=== PATIENT | male | born 1970 | race Caucasian/White ===

== ENCOUNTER 2021-05-15 14:13 | Outpatient (REF) | payer OTHER, SELFPAY ==
[2021-05-15 15:16] LABS: Influenza A PCR POSITIVE (Negative); Influenza B PCR NEGATIVE (Negative); Resp Syncy Virus RNA Qual PCR NEGATIVE (Negative); SARS COV2 PCR INHOUSE NEGATIVE (Negative)
== END 2021-05-15 14:14 | disposition home or self-care (01) ==
LOC: HO.LNP 14:13
PROVIDERS: Visit Provider Family Medicine
DX: Z20.822 Contact with and (suspected) exposure to COVID-19 (principal); B34.9 Viral infection, unspecified
CPT/HCPCS: 0241U

== ENCOUNTER 2021-10-29 09:39 | Outpatient (REF) | payer OTHER, SELFPAY ==
[2021-10-29 12:02] LABS: Alanine Aminotransferase 59 U/L (0-40); Albumin Level 4.5 g/dL (3.5-5.0); Alkaline Phosphatase 52 U/L (39-117); Anion Gap 14 (12-20); Aspartate Amino Transferase 33 U/L (5-37); Bilirubin Total 0.7 mg/dL (0.0-1.0); Blood Urea Nitrogen 20 mg/dL (9-16); Calcium 9.9 mg/dL (8.4-10.2); Carbon Dioxide 26 mmol/L (22-29); Chloride 102 mmol/L (96-108); Cholesterol 183 mg/dL; Estimated Glomerular Filt Rate 55; Glucose Fasting 209 mg/dL (60-99); HDL Cholesterol 24 mg/dL; Potassium 4.5 mmol/L (3.3-5.1); Sodium 137 mmol/L (135-145); Total Protein 7.2 g/dL (6.5-8.0); Triglycerides 789 mg/dL
[2021-10-29 12:16] LABS: Prostate Specific Antigen Scr 0.54 ng/mL (<0.05-4.0); TSH reflex Free T4 2.18 uIU/mL (0.32-4.0)
[2021-10-29 12:21] LABS: Creatinine Urine 224.45 mg/dL; Estimated Average Glucose 194 mg/dL; Hemoglobin A1c % 8.4 %; Microalbum/Creatinine Ratio Ur 4.4 ug/mg cr
== END 2021-10-29 09:40 | disposition home or self-care (01) ==
LOC: HO.WFDLDS 09:39
PROVIDERS: Visit Provider Family Medicine
DX: Z00.00 Encounter for general adult medical examination without abnormal findings (principal); Z12.5 Encounter for screening for malignant neoplasm of prostate; R73.01 Impaired fasting glucose; I10 Essential (primary) hypertension
CPT/HCPCS: 36415; 80053; 80061; 82043; 83036; 84153; 84443

== ENCOUNTER 2022-02-03 08:03 | Outpatient (REF) | payer OTHER, SELFPAY ==
[2022-02-03 11:48] LABS: Alanine Aminotransferase 41 U/L (0-40); Albumin Level 4.5 g/dL (3.5-5.0); Alkaline Phosphatase 45 U/L (39-117); Anion Gap 15 (12-20); Aspartate Amino Transferase 21 U/L (5-37); Bilirubin Total 0.5 mg/dL (0.0-1.0); Blood Urea Nitrogen 17 mg/dL (9-16); Calcium 9.5 mg/dL (8.4-10.2); Carbon Dioxide 24 mmol/L (22-29); Chloride 105 mmol/L (96-108); Cholesterol 151 mg/dL; Estimated Glomerular Filt Rate 51; Glucose Fasting 193 mg/dL (60-99); HDL Cholesterol 28 mg/dL; LDL Cholesterol Calculated 50 mg/dl; Potassium 4.1 mmol/L (3.3-5.1); Sodium 140 mmol/L (135-145); Total Protein 6.9 g/dL (6.5-8.0); Triglycerides 368 mg/dL
[2022-02-03 11:57] LABS: Estimated Average Glucose 154 mg/dL
[2022-02-04 09:16] LABS: LDL Cholesterol Direct 68 mg/dL (<100)
== END 2022-02-03 08:04 | disposition home or self-care (01) ==
LOC: HO.WFDLDS 08:03
PROVIDERS: Visit Provider Family Medicine
DX: Z00.00 Encounter for general adult medical examination without abnormal findings (principal); R73.01 Impaired fasting glucose; E78.6 Lipoprotein deficiency; E78.1 Pure hyperglyceridemia
CPT/HCPCS: 36415; 80053; 80061; 83036; 83721

== ENCOUNTER 2022-02-07 07:49 | Outpatient (REF) | payer OTHER, SELFPAY ==
--- NOTE | ~2022-02-07 | XR_ITS ---
EXAMINATION: XR SHOULDER, RIGHT CLINICAL INFORMATION: Essential hypertension COMPARISON: None TECHNIQUE: AP external rotation, Grashey, scapular Y, and axillary views of the right shoulder. FINDINGS: No acute fracture or dislocation. Mild glenohumeral joint space narrowing with subchondral sclerosis and marginal osteophyte formation. Acromiohumeral interval is maintained. No periarticular soft tissue calcification. AC joint is congruent and intact with minimal subchondral sclerosis and subchondral cystic change. Visualized right lung is grossly clear. XR/XR shoulder RT min 2V IMPRESSION: 1. No acute osseous injury. 2. Mild glenohumeral joint osteoarthritis and minimal acromioclavicular arthropathy.
== END 2022-02-07 07:50 | disposition home or self-care (01) ==
LOC: HO.XRAY 07:49
PROVIDERS: PCP Family Medicine; Visit Provider Family Medicine
DX: I10 Essential (primary) hypertension (principal); M19.011 Primary osteoarthritis, right shoulder
CPT/HCPCS: 73030

== ENCOUNTER 2022-03-21 07:58 | Outpatient (REF) | payer OTHER, SELFPAY ==
[2022-03-21 11:48] LABS: Alanine Aminotransferase 56 U/L (0-40); Albumin Level 4.3 g/dL (3.5-5.0); Alkaline Phosphatase 41 U/L (39-117); Anion Gap 14 (12-20); Aspartate Amino Transferase 21 U/L (5-37); Bilirubin Total 0.4 mg/dL (0.0-1.0); Blood Urea Nitrogen 16 mg/dL (9-16); Calcium 9.5 mg/dL (8.4-10.2); Carbon Dioxide 26 mmol/L (22-29); Chloride 103 mmol/L (96-108); Estimated Glomerular Filt Rate 59; Glucose Random 169 mg/dL (60-115); Sodium 139 mmol/L (135-145); Total Protein 6.7 g/dL (6.5-8.0); Uric Acid 5.5 mg/dL (3.4-7.0)
== END 2022-03-21 07:59 | disposition home or self-care (01) ==
LOC: HO.WFDLDS 07:58
PROVIDERS: Visit Provider Family Medicine
DX: R79.89 Other specified abnormal findings of blood chemistry (principal)
CPT/HCPCS: 36415; 80053; 84550

== ENCOUNTER 2022-06-12 09:17 | Outpatient (REF) | payer OTHER, SELFPAY ==
[2022-06-12 12:24] LABS: Alanine Aminotransferase 56 U/L (0-40); Albumin Level 4.4 g/dL (3.5-5.0); Alkaline Phosphatase 46 U/L (39-117); Anion Gap 14 (12-20); Aspartate Amino Transferase 30 U/L (5-37); Bilirubin Total 0.7 mg/dL (0.0-1.0); Blood Urea Nitrogen 20 mg/dL (9-16); Carbon Dioxide 23 mmol/L (22-29); Chloride 103 mmol/L (96-108); Cholesterol 154 mg/dL; Estimated Glomerular Filt Rate 52; Glucose Random 235 mg/dL (60-115); HDL Cholesterol 20 mg/dL; Potassium 3.9 mmol/L (3.3-5.1); Sodium 136 mmol/L (135-145); Total Protein 6.9 g/dL (6.5-8.0); Triglycerides 662 mg/dL
== END 2022-06-12 09:18 | disposition home or self-care (01) ==
LOC: HO.WFDLDS 09:17
PROVIDERS: Visit Provider Family Medicine
DX: Z00.00 Encounter for general adult medical examination without abnormal findings (principal); E78.6 Lipoprotein deficiency; R74.8 Abnormal levels of other serum enzymes
CPT/HCPCS: 36415; 80053; 80061

== ENCOUNTER 2022-06-19 09:04 | Outpatient (REF) | payer OTHER, SELFPAY ==
--- NOTE | ~2022-06-19 | US_ITS ---
EXAMINATION: US ABDOMEN LIMITED WITH LIVER ELASTOGRAPHY CLINICAL INFORMATION: Abnormal LFTs. COMPARISON: None. TECHNIQUE: Real-time imaging of the abdominal viscera. Noninvasive ultrasound liver fibrosis assessment is performed using Josef ElastPQ point quantification shear wave elastography (2D-SWE) with a C5-2 MHz transducer. Multiple elastography samples are obtained. FINDINGS: PANCREAS: Normal. The visualized pancreatic head and body are normal in appearance. The remainder of the pancreas is obscured from visualization by the overlying bowel gas. LIVER: The liver demonstrates normal size, contour and increased echogenicity. No focal lesion or intrahepatic biliary duct dilatation. The right lobe measures 22.1 cm in length. The left lobe measures 15.5 cm in length. Portal flow is hepatopedal. Shear wave liver elastography median stiffness is 1.79 m/s (reference: normal median stiffness is 1.3 m/s or less). IQR/median stiffness to assess sampling precision is 0.07 (reference: good quality data set is IQR/median stiffness of 0.15 or less). GALLBLADDER: Normal. The gallbladder is physiologically distended without evidence of stones, sludge, polyps, wall thickening or pericholecystic fluid. COMMON BILE DUCT: Normal in caliber measuring 0.34 cm in diameter. RIGHT KIDNEY: Normal. No hydronephrosis. No renal calculi or focal parenchymal lesions. The kidney measures 11.8 cm in maximum dimension. FREE FLUID: None. US/US abdomen marr w elastography IMPRESSION: 1. Mild hepatic steatosis without focal lesion. Rest of the limited abdominal ultrasound is unremarkable. 2. Liver elastography: Median liver stiffness measures 1.79 m/s corresponding to cACLD (suggestive). REFERENCE: Society of Radiologists in Ultrasound Liver Stiffness Thresholds (2020): LIVER STIFFNESS THRESHOLDS: *Liver Stiffness equal or less than 1.3 m/s: High probability of being normal. *Liver Stiffness less than 1.7 m/s: In the absence of other known clinical signs, rules out compensated advanced chronic liver disease. *Liver Stiffness 1.7-2.1 m/s: Suggestive of compensated advanced chronic liver disease but need further test for confirmation. *Liver Stiffness over 2.1 m/s: Rules in compensated advanced chronic liver disease. *Liver Stiffness over 2.4 m/s: Suggestive of clinically significant portal hypertension. QUALITY OF DATA SET: *IQR/Median value equal or less than 0.15 implies a quality data set. *IQR/Median value over 0.15 implies a poor quality data set. SIGNIFICANT CHANGE FROM PRIOR EXAM: Significant change if liver stiffness measurement is 10% or greater from prior exam. OTHER CONSIDERATIONS: The stage of liver fibrosis may be overestimated in the setting of acute hepatitis, liver inflammation, elevated liver function tests, hepatic vascular congestion, obstructive cholestasis, non-fasting state, and infiltrative diseases such as amyloidosis and lymphoma. In some patients with NAFLD, the liver stiffness thresholds for compensated advanced chronic liver disease may be lower. In causes other than viral hepatitis and NAFLD, liver stiffness thresholds are not well established.
== END 2022-06-19 09:05 | disposition home or self-care (01) ==
LOC: HO.US 09:04
PROVIDERS: Visit Provider Family Medicine
DX: R74.8 Abnormal levels of other serum enzymes (principal)
CPT/HCPCS: 76705; 76981

== ENCOUNTER 2022-08-14 09:42 | Outpatient (REF) | payer OTHER, SELFPAY ==
[2022-08-14 11:40] LABS: Estimated Average Glucose 260 mg/dL; Hemoglobin A1c % 10.7 %
[2022-08-14 12:11] LABS: Alanine Aminotransferase 67 U/L (0-40); Albumin Level 4.4 g/dL (3.5-5.0); Alkaline Phosphatase 54 U/L (39-117); Anion Gap 13 (12-20); Aspartate Amino Transferase 46 U/L (5-37); Bilirubin Total 0.4 mg/dL (0.0-1.0); Blood Urea Nitrogen 19 mg/dL (9-16); Calcium 9.7 mg/dL (8.4-10.2); Carbon Dioxide 23 mmol/L (22-29); Chloride 101 mmol/L (96-108); Estimated Glomerular Filt Rate 52; Glucose Random 326 mg/dL (60-115); Lipase 24 U/L (8-78); Potassium 4.2 mmol/L (3.3-5.1); Sodium 133 mmol/L (135-145); Total Protein 7.3 g/dL (6.5-8.0)
== END 2022-08-14 09:43 | disposition home or self-care (01) ==
LOC: HO.WFDLDS 09:42
PROVIDERS: Visit Provider Family Medicine
DX: R79.89 Other specified abnormal findings of blood chemistry (principal); E11.9 Type 2 diabetes mellitus without complications
CPT/HCPCS: 36415; 80053; 83036; 83690

== ENCOUNTER → 2022-08-19 08:17 | Outpatient (BNVA) | payer OTHER, SELFPAY | PROVIDERS: PCP Family Medicine; Visit Provider Physician Assistant | DX: Z13.89 Encounter for screening for other disorder (principal) ==

== ENCOUNTER 2022-08-19 08:55 | Outpatient (REF) | payer OTHER, SELFPAY ==
[2022-08-20 04:43] LABS: HBc Num1 0.08 S/CO (0.00-0.79); HBsAGNum1 0.43 S/CO (0.00-0.99); Hepatitis A Antibody IgM 0.15 Index (0-0.79); Hepatitis B Core Antibody Nonreactive (Nonreactive); Hepatitis B Surface Antigen Negative (Negative); ~HepC Num1 0.08 S/CO (0.00-0.79); ~Hepatitis A Antibody IgM Nonreactive (Nonreactive); ~Hepatitis C Antibody Nonreactive (Nonreactive)
[2022-08-20 05:24] LABS: HBS Num2 11.02 mIU/mL (0-7.99); HBS Num3 10.95 mIU/mL (0-7.99); ~Hepatitis B Surface Antibody GRAYZONE (Nonreactive)
[2022-08-21 14:59] LABS: Alpha 1 Anti-trypsin 114 mg/dL (83-199)
[2022-08-22 15:34] LABS: Anti Nuclear Antibody Screen NEGATIVE (NEGATIVE)
[2022-08-23 23:29] LABS: Smooth Muscle Antibody <20 U (<20)
[2022-08-25 12:04] LABS: Mitochondrial Antibodies NEGATIVE (NEGATIVE)
[2022-08-26 23:18] LABS: Soluble Liver Ag Autoantibody <20.1 U (0.0-20.0)
== END 2022-08-19 08:56 | disposition home or self-care (01) ==
LOC: HO.WFDLDS 08:55
PROVIDERS: Visit Provider Physician Assistant
DX: R74.01 Elevation of levels of liver transaminase levels (principal); R79.89 Other specified abnormal findings of blood chemistry; R74.8 Abnormal levels of other serum enzymes
CPT/HCPCS: 36415; 81256; 82103; 83520; 86015; 86038; 86039; 86255; 86256; 86704; 86706; 86709; 86803; 87340

== ENCOUNTER 2022-09-29 07:59 | Outpatient (REF) | payer OTHER, SELFPAY ==
[2022-09-29 11:40] LABS: Alanine Aminotransferase 52 U/L (0-40); Albumin Level 4.4 g/dL (3.5-5.0); Alkaline Phosphatase 47 U/L (39-117); Anion Gap 14 (12-20); Aspartate Amino Transferase 30 U/L (5-37); Bilirubin Total 0.7 mg/dL (0.0-1.0); Blood Urea Nitrogen 16 mg/dL (9-16); Calcium 9.7 mg/dL (8.4-10.2); Carbon Dioxide 24 mmol/L (22-29); Chloride 103 mmol/L (96-108); Cholesterol 179 mg/dL; Estimated Glomerular Filt Rate 48; Glucose Random 254 mg/dL (60-115); HDL Cholesterol 20 mg/dL; Potassium 4.3 mmol/L (3.3-5.1); Sodium 137 mmol/L (135-145); Total Protein 6.8 g/dL (6.5-8.0); Triglycerides 864 mg/dL
== END 2022-09-29 08:00 | disposition home or self-care (01) ==
LOC: HO.WFDLDS 07:59
PROVIDERS: Visit Provider Family Medicine
DX: Z00.00 Encounter for general adult medical examination without abnormal findings (principal); E78.1 Pure hyperglyceridemia; I10 Essential (primary) hypertension; E11.9 Type 2 diabetes mellitus without complications; R79.89 Other specified abnormal findings of blood chemistry
CPT/HCPCS: 36415; 80053; 80061

== ENCOUNTER 2022-11-10 09:19 | Outpatient (REF) | payer OTHER, SELFPAY ==
[2022-11-10 11:59] LABS: Alanine Aminotransferase 53 U/L (0-40); Albumin Level 4.5 g/dL (3.5-5.0); Alkaline Phosphatase 41 U/L (39-117); Anion Gap 13 (12-20); Aspartate Amino Transferase 30 U/L (5-37); Bilirubin Total 0.6 mg/dL (0.0-1.0); Blood Urea Nitrogen 15 mg/dL (9-16); Calcium 9.8 mg/dL (8.4-10.2); Carbon Dioxide 22 mmol/L (22-29); Chloride 108 mmol/L (96-108); Cholesterol 130 mg/dL; Estimated Glomerular Filt Rate > 60; Glucose Fasting 159 mg/dL (60-99); HDL Cholesterol 26 mg/dL; LDL Cholesterol Calculated 40 mg/dl; Sodium 139 mmol/L (135-145); Total Protein 7.2 g/dL (6.5-8.0); Triglycerides 324 mg/dL
== END 2022-11-10 09:20 | disposition home or self-care (01) ==
LOC: HO.WFDLDS 09:19
PROVIDERS: Visit Provider Family Medicine
DX: Z00.00 Encounter for general adult medical examination without abnormal findings (principal); E78.1 Pure hyperglyceridemia; E11.9 Type 2 diabetes mellitus without complications
CPT/HCPCS: 36415; 80053; 80061

== ENCOUNTER 2023-02-13 07:50 | Outpatient (REF) | payer OTHER, SELFPAY ==
[2023-02-13 11:46] LABS: Estimated Average Glucose 137 mg/dL; Hemoglobin A1c % 6.4 % (<6.0)
[2023-02-13 12:08] LABS: Alanine Aminotransferase 54 U/L (0-40); Albumin Level 4.5 g/dL (3.5-5.0); Alkaline Phosphatase 37 U/L (39-117); Anion Gap 12 (12-20); Aspartate Amino Transferase 32 U/L (5-37); Bilirubin Total 0.3 mg/dL (0.0-1.0); Blood Urea Nitrogen 17 mg/dL (9-16); Calcium 10.6 mg/dL (8.4-10.2); Carbon Dioxide 23 mmol/L (22-29); Chloride 107 mmol/L (96-108); Cholesterol 134 mg/dL (<200); Estimated Glomerular Filt Rate > 60; Glucose Fasting 159 mg/dL (60-99); HDL Cholesterol 25 mg/dL (>40); LDL Cholesterol Calculated 33 mg/dL (<100); Sodium 138 mmol/L (135-145); Triglycerides 380 mg/dL (<150)
[2023-02-13 12:32] LABS: TSH reflex Free T4 2.13 uIU/mL (0.32-4.0)
== END 2023-02-13 07:51 | disposition home or self-care (01) ==
LOC: HO.WFDLDS 07:50
PROVIDERS: Visit Provider Family Medicine
DX: Z00.00 Encounter for general adult medical examination without abnormal findings (principal); R73.01 Impaired fasting glucose
CPT/HCPCS: 36415; 80053; 80061; 83036; 84443

== ENCOUNTER 2023-02-17 08:32 | Outpatient (AMB) | payer OTHER, SELFPAY ==
--- NOTE | 2023-02-17 08:33 | MHC.PC.OV ---
Vital Signs 02/17/23 08:40 Height 6 ft 3 in Weight 251 lb 2 oz BMI 31.4 BP 118/62 Blood Pressure Location Rt brachial Position Sitting Respiration 16 Pulse 80 Pulse Source Pulse Oximeter Temp 98.9 F Temp Source Oral Pulse Oximetry (%) 98 Oxygen Delivery Method Room Air Intake Visit Reasons: f/u diabetes Intake Note: Patient is following up regarding labs drawn 02/13/23 with an A1C result of 6.4. Patient reports he has a concern for his right ear feeling blocked without pain. 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 Had increased his Trulicity. Blood pressure today is 118/62. He is on amlodipine 10mg and losartan 50mg daily. A1c 02/13/23 6.4%. He denies any problems with Trulicity. He is also on metformin 500mg b.i.d. Pt reports R ear feels blocked. Labs were drawn 02/13/23. Reviewed labs with pt. Triglycerides worsened from 324 to 380. TC 134. LDL 33. HDL low at 25. [facility] Medical History Hx of gout Surgical History History of plastic surgery History of repair of left hip joint History of right elbow replacement History of tonsillectomy Family History Other Mental health disorder Substance use disorder Social History Housing: House Alcohol intake: current Alcohol intake frequency: a few times a month Patient Tobacco Use Status: Never used Tobacco e-Cigarette/Vaping Use: Never Used Second Hand Smoke Exposure: No service: No Current occupational status: employed Current occupational exposures/hazards: No Cognitive needs: No Hearing needs: No Vision needs: No (reading glasses) Questionnaire Thrive Questionnaire Date Thrive assessed: 11/13/22 BROCK-7 AMB Questionnaire BROCK-7 Date BROCK - 7 assessed: 11/13/22 Source: Developed by Drs. Clarke Bella, Lily Hale, Rogelio Dunne and colleagues, with an educational chavez from [employer]. Physical exam (Primary Care) Vital Signs: Last Vital Signs Temp 98.9 F 02/17/23 08:40 Pulse 80 02/17/23 08:40 Resp 16 02/17/23 08:40 BP 118/62 02/17/23 08:40 Pulse Ox 98 02/17/23 08:40 Oxygen Delivery Method Room Air 02/17/23 08:40 BMI result Body Mass Index 31.4 Tobacco/Smoking Status: Tobacco use Status Tobacco use date assessed 02/17/23 02/17/23 08:43 Patient Tobacco Use Status Never used Tobacco 02/17/23 08:34 e-Cigarette/Vaping Use Never Used 02/17/23 08:34 Thrive Assessment: Date of Thrive Assessment Date Thrive assessed 11/13/22 02/17/23 08:34 Assessment and Plan Assessment & Plan (1) Diabetes: Code(s): E11.9 - Type 2 diabetes mellitus without complications Plan: A1c now 6.4%; good control. Goal is less than 7.0% Continue current medication regimen (2) Essential hypertension: Code(s): I10 - Essential (primary) hypertension Plan: Blood pressure is well controlled. Goal is less than 140/90 Continue amlodipine and losartan as prescribed (3) Hypertriglyceridemia: Code(s): E78.1 - Pure hyperglyceridemia Plan: Triglycerides are still high despite high dose of fenofibrate - however much improved from prior to using fenofibrate therapy when triglycerides were Greater than 800 Continue fenofibrate Work on diet low in saturated fats and cholesterol, control blood sugar and increase exercise (4) Low HDL (under 40): Code(s): E78.6 - Lipoprotein deficiency Plan: Increase exercise Will follow (5) Discomfort of right ear: Code(s): H92.01 - Otalgia, right ear Plan: Right TM appears scarred and thickened. Refer to ENT (6) Hearing loss in right ear: Code(s): H91.91 - Unspecified hearing loss, right ear Plan: As above (7) Injury of tympanic membrane of right ear: Code(s): S09.301A - Unspecified injury of right middle and inner ear, initial encounter Plan: Apparent scarring and thickening of right TM. Referred to ENT as above Orders: Referrals Ear/Nose/Throat Referral H91.91 - Unspecified hearing loss, right ear, S09.301A - Unspecified injury of right middle and inner ear, initial encounter Coding Level of Care Code Est Pt Level 4 (02622) Diagnoses Diabetes E11.9 Essential hypertension I10 Hypertriglyceridemia E78.1 Low HDL (under 40) E78.6 Discomfort of right ear H92.01 Hearing loss in right ear H91.91 Injury of tympanic membrane of right ear S09.301A
[2023-02-17 08:40] VITALS: BP 118/62; PULSE 80; RESP 16; TEMP 37.2; O2SAT 98; BMI 31.4
== END 2023-02-17 09:10 | disposition home or self-care (01) ==
PROVIDERS: PCP Family Medicine; Visit Provider Family Medicine
DX: E11.9 Type 2 diabetes mellitus without complications (principal); I10 Essential (primary) hypertension; E78.1 Pure hyperglyceridemia; E78.6 Lipoprotein deficiency; H92.01 Otalgia, right ear; H91.91 Unspecified hearing loss, right ear; S09.301A Unspecified injury of right middle and inner ear, initial encounter
CPT/HCPCS: 99214

== ENCOUNTER 2023-05-15 08:35 | Outpatient (REF) | payer OTHER, SELFPAY ==
[2023-05-15 11:57] LABS: Alanine Aminotransferase 45 U/L (0-40); Albumin Level 4.3 g/dL (3.5-5.0); Alkaline Phosphatase 50 U/L (39-117); Anion Gap 12 (12-20); Aspartate Amino Transferase 26 U/L (5-37); Bilirubin Total 0.3 mg/dL (0.0-1.0); Blood Urea Nitrogen 15 mg/dL (9-16); Calcium 10.1 mg/dL (8.4-10.2); Carbon Dioxide 27 mmol/L (22-29); Chloride 104 mmol/L (96-108); Cholesterol 129 mg/dL (<200); Estimated Glomerular Filt Rate 55; Glucose Fasting 193 mg/dL (60-99); HDL Cholesterol 21 mg/dL (>40); Potassium 4.3 mmol/L (3.3-5.1); Sodium 139 mmol/L (135-145); Triglycerides 459 mg/dL (<150)
[2023-05-15 12:20] LABS: Appearance Urine Clear; Color Urine Yellow; Glucose Urine UA 100 mg/dL (Negative); Leukocyte Esterase Urine Negative (Negative); Nitrite Urine Negative (Negative); Specific Gravity - Urine 1.015 (1.005-1.025); Urine Blood Negative (Negative); Urine Ketones Negative (Negative); Urine Protein Negative (Neg-Trace)
[2023-05-15 14:08] LABS: Creatinine Urine 118.49 mg/dL
== END 2023-05-15 08:36 | disposition home or self-care (01) ==
LOC: HO.WFDLDS 08:35
PROVIDERS: Visit Provider Family Medicine
DX: Z00.00 Encounter for general adult medical examination without abnormal findings (principal); I10 Essential (primary) hypertension; E78.6 Lipoprotein deficiency; R74.8 Abnormal levels of other serum enzymes
CPT/HCPCS: 36415; 80053; 80061; 81003; 82043; 82570

== ENCOUNTER 2023-05-21 08:22 | Outpatient (AMB) | payer OTHER, SELFPAY ==
--- NOTE | 2023-05-21 08:26 | MHC.PC.OV ---
Vital Signs 05/21/23 08:27 Height 6 ft 3 in Weight 254 lb 4 oz BMI 31.8 BP 124/72 Blood Pressure Location Rt brachial Position Sitting Respiration 13 Pulse 94 Pulse Source Pulse Oximeter Temp 97.6 F Temp Source Temporal Artery Scan Pulse Oximetry (%) 97 Oxygen Delivery Method Room Air Intake Visit Reasons: f/u diabetes Intake Note: Patient states that he has been having a persistent cough for the last 6 weeks and believes it may be a side effect from a medication. 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: No Accompanied by: Self / Same As Patient Allergies clarithromycin [From BIAXIN] Allergy (Severe, Verified 05/21/23 08:34) ANAPHYLAXIS ENVIRONMENTAL Allergy (Intermediate, Uncoded 10/01/22 08:54) ITCHY EYES RUNNY NOSE Tobacco use date assessed: 02/17/23 Dental Screening Dental Screen Date: 05/21/23 Did you have a dental visit in the last 12 months?: Yes Did you have a dental problem in the last 6 months where you did not have access to dental care?: No Was dental information given to patient?: Patient has dentist HPI f/u diabetes HPI Details 53 y/o male presents to f/u diabetes and hypertension. Labs were drawn 05/15/23. Reviewed labs with pt. Elevated ALT of 45 U/L which improved from 54. Triglycerides worsened from 380 to 459. HDL low at 21. Last A1c 02/13/23 6.4%. A1c today 05/21/23 is 7.4%. Blood pressure today 124/72. He is on amlodipine 10mg and losartan 50mg daily. Pt reports a cough x6 weeks. He has been trying to drink a lot of cough medicine for relief. 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 Clarke Bella, Lily Hale, Rogelio Dunne and colleagues, with an educational chavez from [employer]. Review of Systems Const Denies chills, Denies fatigue, Denies fever(s), Denies headache(s) and Denies weakness ENT Denies dizziness and Denies headache(s) Card Denies chest pain, Denies lightheadedness, Denies dyspnea and Denies other (Palpitations) Resp Reports cough, Denies dyspnea and Denies wheezing Musc Denies numbness and Denies tingling Neuro Denies dizziness, Denies headache(s), Denies numbness, Denies tingling, Denies paresthesias and Denies weakness Psych Denies anxiety and Denies depression Endo Denies fatigue Aller/Immun Denies wheezing Physical exam (Primary Care) Vital Signs: Last Vital Signs Temp 97.6 F 05/21/23 08:27 Pulse 94 05/21/23 08:27 Resp 13 05/21/23 08:27 BP 124/72 05/21/23 08:27 Pulse Ox 97 05/21/23 08:27 Oxygen Delivery Method Room Air 05/21/23 08:27 BMI result Body Mass Index 31.8 Tobacco/Smoking Status: Tobacco use Status Tobacco use date assessed 02/17/23 05/21/23 08:33 Patient Tobacco Use Status Never used Tobacco 05/21/23 08:33 e-Cigarette/Vaping Use Never Used 05/21/23 08:33 Thrive Assessment: Date of Thrive Assessment Date Thrive assessed 11/13/22 05/21/23 08:33 Const General: no acute distress and well developed Nutritional Appearance: well nourished Orientation/consciousness: patient oriented x3 HENMT Head: Yes normocephalic and Yes atraumatic Eyes General: appearance normal, both eyes and all related structures Pupils: Equal, round and reactive pupils present EOM: EOMs intact bilaterally Resp Effort & Inspection: normal respiratory effort Auscultation: not clear to auscultation bilaterally Cardio Rate: regular rate Rhythm: regular rhythm Heart sounds: S1 normal heart sound present, S2 normal heart sound present, no gallops, no murmurs and no rubs Neuro General: patient oriented x3 and gait normal Cranial nerves: Yes Equal, round and reactive pupils present Psych Affect: normal affect Results AMB Hemoglobin A1c AMB Hemoglobin A1c 7.4 % Last Edit by Luz Child MA on 05/21/23 08:41 Results Reviewed Results Reviewed: Laboratory Last Values Hgb A1c (Clinic) 7.4 % (4.0-6.0) H 05/21/23 08:39 Assessment and Plan Assessment & Plan (1) Diabetes: Code(s): E11.9 - Type 2 diabetes mellitus without complications Plan: A1c?7.4%?and?goal?is?less?than?7.0%. Will?increase?Trulicity (2) Essential hypertension: Code(s): I10 - Essential (primary) hypertension Plan: Blood?pressure?is?controlled.??Goal?is?less?than?140/90 Continue?current?medication (3) Cough: Code(s): R05 - Cough Plan: Likely?bronchitis Check?chest?x-ray?to?rule?out?occult?pneumonia Will?give?him?prednisone?and?cephalexin;?patient?allergic?to?clarithromycin?and?likely?Z-James He?will?call?or?return?to?office?if?not?improving (4) Hypertriglyceridemia: Code(s): E78.1 - Pure hyperglyceridemia Plan: He?is?on?high?dose?of?fenofibrate. Triglycerides?had?been?greater?than?800?prior?to?medication.??Triglycerides?have?risen to 459 as?he?has?been?not?feeling?well?and?not?exercising?as?much. Encouraged?weight?loss?and?exercise?when?he?is?feeling?better Continue?medication (5) Elevated liver enzymes: Code(s): R74.8 - Abnormal levels of other serum enzymes Plan: Liver?enzymes?have?improved.??Will?continue?to?follow Orders: Orders XR chest 2V Today R05 - Cough Comprehensive [place]. Panel Fast Today R74.8 - Abnormal levels of other serum enzymes, Z00.00 - Encounter for general adult medical examination without abnormal findings Lipid Panel Today E78.1 - Pure hyperglyceridemia, Z00.00 - Encounter for general adult medical examination without abnormal findings LDL Cholesterol Direct Today E78.1 - Pure hyperglyceridemia Medications: New prednisone 4 tabs daily for 4 days, 3 tabs daily for 2 days, 2 tabs daily for 2 days, 1 tab daily for 2 days PO daily; 10 days 28 tabs 0RF cephalexin 500 mg PO Q12H 7 days 14 caps 0RF Changed From dulaglutide 1.5 mg (0.5 mL) subcut QWEEK 28 days 2 mL 3RF To dulaglutide 3 mg (0.5 mL) subcut QWEEK 2 mL 3RF 28 days Coding Level of Care Code Est Pt Level 4 (41332) Diagnoses Diabetes E11.9 Essential hypertension I10 Cough R05 Hypertriglyceridemia E78.1 Elevated liver enzymes R74.8
[2023-05-21 08:27] VITALS: BP 124/72; PULSE 94; RESP 13; TEMP 36.4; O2SAT 97; BMI 31.8
== END 2023-05-21 08:58 | disposition home or self-care (01) ==
PROVIDERS: PCP Family Medicine; Visit Provider Family Medicine
DX: E11.9 Type 2 diabetes mellitus without complications (principal); I10 Essential (primary) hypertension; R05.9 Cough, unspecified; E78.1 Pure hyperglyceridemia; R74.8 Abnormal levels of other serum enzymes
CPT/HCPCS: 99214

== ENCOUNTER 2023-09-02 08:26 | Outpatient (REF) | payer OTHER, SELFPAY ==
[2023-09-02 12:43] LABS: Alanine Aminotransferase 71 U/L (0-40); Albumin Level 4.3 g/dL (3.5-5.0); Alkaline Phosphatase 47 U/L (39-117); Anion Gap 14 (12-20); Aspartate Amino Transferase 38 U/L (5-37); Bilirubin Total 0.3 mg/dL (0.0-1.0); Blood Urea Nitrogen 14 mg/dL (9-16); Calcium 9.6 mg/dL (8.4-10.2); Carbon Dioxide 21 mmol/L (22-29); Chloride 107 mmol/L (96-108); Cholesterol 137 mg/dL (<200); Estimated Glomerular Filt Rate > 60; Glucose Fasting 181 mg/dL (60-99); HDL Cholesterol 22 mg/dL (>40); Potassium 4.1 mmol/L (3.3-5.1); Sodium 138 mmol/L (135-145); Total Protein 7.1 g/dL (6.5-8.0); Triglycerides 481 mg/dL (<150)
[2023-09-03 09:47] LABS: LDL Cholesterol Direct 52 mg/dL (<100)
== END 2023-09-02 08:27 | disposition home or self-care (01) ==
LOC: HO.WFDLDS 08:26
PROVIDERS: Visit Provider Family Medicine
DX: Z00.00 Encounter for general adult medical examination without abnormal findings (principal); R74.8 Abnormal levels of other serum enzymes; E78.1 Pure hyperglyceridemia
CPT/HCPCS: 36415; 80053; 80061; 83721

== ENCOUNTER 2023-10-29 09:46 | Outpatient (AMB) | payer OTHER, SELFPAY ==
[2023-10-29 09:54] VITALS: BP 132/80; PULSE 91; O2SAT 98; BMI 31.2
--- NOTE | 2023-10-29 09:54 | MHC.PC.OV ---
Vital Signs 10/29/23 09:54 Height 6 ft 3 in Weight 250 lb BMI 31.2 BP 132/80 Blood Pressure Location Lt brachial Position Sitting Pulse 91 Pulse Source Pulse Oximeter Pulse Oximetry (%) 98 Oxygen Delivery Method Room Air Intake Visit Reasons: f/u for med recomendation Intake Note: Patient is here for follow up on medications. Allergies clarithromycin [From BIAXIN] Allergy (Severe, Verified 10/29/23 09:57) ANAPHYLAXIS ENVIRONMENTAL Allergy (Intermediate, Uncoded 10/29/23 09:57) ITCHY EYES RUNNY NOSE Medication List - Last Reconciled 10/29/23 by Reno Vargas MD allopurinol 200 mg (2 x 100 mg) PO DAILY 90 days amlodipine 10 mg PO DAILY 30 days blood sugar diagnostic (FreeStyle Lite Strips) DX: E11.9, test blood sugar once a day, 90 days blood-glucose meter (FreeStyle Lite Meter kit) DX: E11.9, test blood sugar once a day, duration 999 days cephalexin 500 mg PO Q12H 7 days dulaglutide 3 mg (0.5 mL) subcut QWEEK 28 days fenofibrate micronized 200 mg PO DAILY 30 days lancets (FreeStyle Lancets) As directed losartan 50 mg PO DAILY 30 days meloxicam 15 mg PO DAILY PRN metformin 500 mg PO BIDWMEAL 90 days prednisone 4 tabs daily for 4 days, 3 tabs daily for 2 days, 2 tabs daily for 2 days, 1 tab daily for 2 days PO daily; 10 days Tobacco use date assessed: 10/29/23 Dental Screening Dental Screen Date: 10/29/23 Did you have a dental visit in the last 12 months?: No Did you have a dental problem in the last 6 months where you did not have access to dental care?: No Was dental information given to patient?: Patient has dentist HPI f/u for med recomendation HPI Details Pt presents to f/u hypertension, HLD, liver enzymes. Pt reports ongoing cough. Labs were drawn 09/02/23. Reviewed labs with pt. Elevated AST of 38, ALT of 71. He denies any EtOH/tylenol use. Triglycerides 481. TC 137. LDL 52. HDL low at 22. 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 Clarke Bella, Lily Hale, Rogelio Dunne and colleagues, with an educational chavez from [employer]. Review of Systems Const Denies chills, Denies fatigue, Denies fever(s), Denies headache(s) and Denies weakness ENT Denies dizziness and Denies headache(s) Card Denies dyspnea Resp Reports cough, Denies dyspnea and Denies wheezing Musc Denies numbness and Denies tingling Neuro Denies dizziness, Denies headache(s), Denies numbness, Denies tingling and Denies weakness Psych Denies anxiety and Denies depression Endo Denies fatigue Aller/Immun Denies wheezing Physical exam (Primary Care) Vital Signs: Last Vital Signs Pulse 91 10/29/23 09:54 BP 132/80 10/29/23 09:54 Pulse Ox 98 10/29/23 09:54 Oxygen Delivery Method Room Air 10/29/23 09:54 BMI result Body Mass Index 31.2 Tobacco/Smoking Status: Tobacco use Status Tobacco use date assessed 10/29/23 10/29/23 10:00 Patient Tobacco Use Status Never used Tobacco 10/29/23 09:55 e-Cigarette/Vaping Use Never Used 10/29/23 09:55 Thrive Assessment: Date of Thrive Assessment Date Thrive assessed 11/13/22 10/29/23 09:55 Const General: well developed; No acute distress Nutritional Appearance: well nourished Orientation/consciousness: patient oriented x3 HENMT Head: Yes normocephalic and Yes atraumatic Eyes General: appearance normal, both eyes and all related structures Pupils: Equal, round and reactive pupils present EOM: EOMs intact bilaterally Resp Other: Upper airway secretion sounds Effort & Inspection: normal respiratory effort Neuro General: patient oriented x3 and gait normal Cranial nerves: Yes Equal, round and reactive pupils present Psych Affect: normal affect Assessment and Plan Assessment & Plan (1) Essential hypertension: Code(s): I10 - Essential (primary) hypertension Plan: Blood?pressure?is?controlled.??Goal?is?less?than?140/90 Continue?current?medication?regimen (2) Hypertriglyceridemia: Code(s): E78.1 - Pure hyperglyceridemia Plan: Triglycerides?significantly?elevated?despite?fenofibrate. Of?note,?patient?has?not?been?able?to?get?his?Trulicity?and?his?blood?sugars?are?much?higher.??This?may?be?elevated?triglycerides?as?well Treating?blood?sugar.??Continue?fenofibrate Will?recheck?prior?to?next?visit?in?3?months (3) Cough: Code(s): R05 - Cough Plan: Possible?bronchitis?or?inflammatory?cough?from?microaspiration Giving?him?a?Z-James?and?short?course?of?prednisone. Will?also?give?him?famotidine Continue?Meeta?D?OTC (4) Elevated liver enzymes: Code(s): R74.8 - Abnormal levels of other serum enzymes Plan: Liver?enzymes?remained?elevated?and?have?climbed. History?of?hepatic?steatosis Encouraged?weight?loss Orders: Orders Comprehensive [place]. Panel Fast Today E78.1 - Pure hyperglyceridemia, Z00.00 - Encounter for general adult medical examination without abnormal findings Lipid Panel Today E78.1 - Pure hyperglyceridemia, Z00.00 - Encounter for general adult medical examination without abnormal findings AMB Hemoglobin A1c Today Z13.9 - Encounter for screening, unspecified Medications: New prednisone 40 mg (2 x 20 mg) PO DAILY 5 days 10 tabs 0RF famotidine 20 mg PO BEDTIME 10 days 10 tabs 0RF Changed From dulaglutide 3 mg (0.5 mL) subcut QWEEK 28 days 2 mL 3RF To dulaglutide 4.5 mg (0.5 mL) subcut QWEEK 28 days 2 mL 3RF Refilled cephalexin 500 mg PO Q12H 10 days 20 caps 0RF Discontinued prednisone Discontinued Reason: Doctor's Order 4 tabs daily for 4 days, 3 tabs daily for 2 days, 2 tabs daily for 2 days, 1 tab daily for 2 days PO daily; 10 days 28 tabs 0RF Coding Level of Care Code Est Pt Level 4 (04000) Diagnoses Essential hypertension I10 Hypertriglyceridemia E78.1 Cough R05 Elevated liver enzymes R74.8
== END 2023-10-29 10:32 | disposition home or self-care (01) ==
LOC: HO.HMGFM 09:46
PROVIDERS: PCP Family Medicine; Visit Provider Family Medicine
DX: I10 Essential (primary) hypertension (principal); E78.1 Pure hyperglyceridemia; R05.9 Cough, unspecified; R74.8 Abnormal levels of other serum enzymes
CPT/HCPCS: 99214

== ENCOUNTER 2024-03-22 08:07 | Outpatient (REF) | payer OTHER, SELFPAY ==
[2024-03-22 12:26] LABS: Alanine Aminotransferase 59 U/L (0-40); Albumin Level 4.6 g/dL (3.5-5.0); Alkaline Phosphatase 47 U/L (39-117); Anion Gap 16 (12-20); Aspartate Amino Transferase 30 U/L (5-37); Bilirubin Total 0.6 mg/dL (0.0-1.0); Blood Urea Nitrogen 14 mg/dL (9-16); Calcium 9.8 mg/dL (8.4-10.2); Carbon Dioxide 26 mmol/L (22-29); Chloride 97 mmol/L (96-108); Cholesterol 134 mg/dL (<200); Estimated Glomerular Filt Rate > 60; Glucose Fasting 216 mg/dL (60-99); HDL Cholesterol 35 mg/dL (>40); LDL Cholesterol Calculated 68 mg/dL (<100); Potassium 4.1 mmol/L (3.3-5.1); Sodium 135 mmol/L (135-145); Triglycerides 155 mg/dL (<150)
== END 2024-03-22 08:08 | disposition home or self-care (01) ==
LOC: HO.WFDLDS 08:07
PROVIDERS: Visit Provider Family Medicine
DX: Z00.00 Encounter for general adult medical examination without abnormal findings (principal); E78.1 Pure hyperglyceridemia
CPT/HCPCS: 36415; 80053; 80061

== ENCOUNTER 2024-03-28 15:25 | Outpatient (AMB) | payer OTHER, SELFPAY ==
--- NOTE | 2024-03-28 16:16 | A.OFFPC_ITS ---
Vital Signs 03/28/24 16:18 Height 6 ft 3 in Weight 240 lb 8 oz BMI 30.1 BP 116/64 Blood Pressure Location Lt brachial Position Sitting Respiration 16 Pulse 86 Pulse Source Pulse Oximeter Temp 98.4 F Temp Source Temporal Artery Scan Pulse Oximetry (%) 97 Oxygen Delivery Method Room Air Intake Visit Reasons: f/u hypertension, pre-diabetes Intake Note: f/u for HTN,DM Allergies clarithromycin [From BIAXIN] Allergy (Severe, Verified 03/28/24 16:16) ANAPHYLAXIS ENVIRONMENTAL Allergy (Intermediate, Uncoded 10/29/23 09:57) ITCHY EYES RUNNY NOSE Medication List - Last Reconciled 03/28/24 by Reno Vargas MD allopurinol 200 mg (2 x 100 mg) PO DAILY 90 days amlodipine 10 mg PO DAILY 30 days blood sugar diagnostic (FreeStyle Lite Strips) DX: E11.9, test blood sugar once a day, 90 days blood-glucose meter (FreeStyle Lite Meter kit) DX: E11.9, test blood sugar once a day, duration 999 days dulaglutide 4.5 mg (0.5 mL) subcut QWEEK 28 days fenofibrate micronized 200 mg PO DAILY 30 days lancets (FreeStyle Lancets) As directed losartan 50 mg PO DAILY 30 days meloxicam 15 mg PO DAILY PRN metformin 500 mg PO BIDWMEAL 90 days Tobacco use date assessed: 10/29/23 Dental Screening Dental Screen Date: 10/29/23 HPI f/u hypertension, pre-diabetes HPI Details 54 y/o male presents to f/u hypertension , pre-diabetes. Blood pressure today 116/64, 86p. A1c today 03/28/24 is 8.6%. He is on metformin 500mg b.i.d., dulaglutide 4.5mg. Reports cold like symptoms, congestion. 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 1. Little interest or pleasure in doing things: not at all 2. Feeling down, depressed, or hopeless: not at all 3. Trouble falling or staying asleep, or sleeping too much: several days 4. Feeling tired or having little energy: several days 5. Poor appetite or overeating: several days 6. Feeling bad about yourself - or that you are a failure or have let yourself or your family down: not at all 7. Trouble concentrating on things, such as reading the newspaper or watching television: not at all 8. Moving or speaking so slowly that other people could have noticed. Or the opposite - being so fidgety or restless that you have been moving around a lot more than usual: not at all 9. Thoughts that you would be better off or of hurting yourself in some way: not at all Total score: 3 Source: Developed by Drs. Clarke Bella, Lily Hale, Rogelio Dunne and colleagues, with an educational chavez from [employer]. Thrive Questionnaire Date Thrive assessed: 11/13/22 I am a: Patient What is your living situation today?: I have a steady place to live Within the past 12 months, did the food you bought not last and you didn't have the money to get more?: Never true Within the past 12 months, did you worry whether your food would run out before you got money to buy more?: Never true Do you have trouble paying for medicines?: No Do you have trouble getting transportation to medical appointments?: No Do you have trouble paying your heating and electricity bill?: No Do you have trouble taking care of your child, family member or friend?: No Do you have trouble with day-to-day activities such as bathing, preparing meals, shopping, managing finances, etc.?: No Are you currently unemployed and looking for a job?: No Are you interested in more education?: No Please select the resources that you would like help with: None Currently or been in a relationship where the following occur: No concerns reported THRIVE Score: 0 AUDIT C Alcohol Use Questionnaire (AUDIT-C) 1. How often do you have a drink containing alcohol?: 2-4 times a month 2. How many drinks containing alcohol do you have on a typical day when you are drinking?: 1 or 2 3. How often do you have six or more drinks on one occasion?: Never Total Score: 2 BROCK-7 AMB Questionnaire BROCK-7 Date BROCK - 7 assessed: 11/13/22 Feeling nervous, anxious, or on edge: 0 = Not at all Not being able to stop or control worryin = Not at all Worrying too much about different things: 0 = Not at all Trouble relaxin = Not at all Being so restless that it is hard to sit still: 0 = Not at all Becoming easily annoyed or irritable: 0 = Not at all Feeling afraid as if something awful might happen: 0 = Not at all Total BROCK-7 score (0-4 normal; 5-9 mild; 10-14 moderate; 15-21 severe): 0 Source: Developed by Drs. Clarke Bella, Lily Hale, Rogelio Dunne and colleagues, with an educational chavez from [employer]. Review of Systems Const Denies chills, Denies fatigue, Denies fever(s), Denies headache(s) and Denies weakness ENT Denies dizziness and Denies headache(s) Card Denies dyspnea Resp Denies cough, Denies dyspnea, Denies wheezing and Denies other (shortness of breath) Musc Denies numbness and Denies tingling Neuro Denies dizziness, Denies headache(s), Denies numbness, Denies tingling and De nies weakness Psych Denies anxiety and Denies depression Endo Denies fatigue Aller/Immun Denies wheezing Physical exam (Primary Care) Vital Signs: Last Vital Signs Temp 98.4 F 03/28/24 16:18 Pulse 86 03/28/24 16:18 Resp 16 03/28/24 16:18 BP 116/64 03/28/24 16:18 Pulse Ox 97 03/28/24 16:18 Oxygen Delivery Method Room Air 03/28/24 16:18 BMI result Body Mass Index 30.1 Tobacco/Smoking Status: Tobacco use Status Tobacco use date assessed 10/29/23 03/28/24 16:21 Patient Tobacco Use Status Never used Tobacco 03/28/24 16:21 e-Cigarette/Vaping Use Never Used 03/28/24 16:21 PHQ-9: PHQ-9 Score PHQ-9: Total score 3 03/28/24 16:33 Thrive Assessment: Date of Thrive Assessment Date Thrive assessed 11/13/22 03/28/24 16:21 Currently or been in a relationship where the following occur: No concerns repo rted Const General: well developed; No acute distress Nutritional Appearance: well nourished Orientation/consciousness: patient oriented x3 HENMT Head: Yes normocephalic and Yes atraumatic Eyes General: appearance normal, both eyes and all related structures Pupils: Equal, round and reactive pupils present EOM: EOMs intact bilaterally Resp Effort & Inspection: normal respiratory effort Auscultation: clear to auscultation bilaterally Cardio Rate: regular rate Rhythm: regular rhythm Heart sounds: S1 normal heart sound present, S2 normal heart sound present, no gallops, no murmurs and no rubs Neuro General: patient oriented x3 and gait normal Cranial nerves: Yes Equal, round and reactive pupils present Psych Affect: normal affect Coding Level of Care Code Est Pt Level 4 (04657) Diagnoses Essential hypertension I10 Hypertriglyceridemia E78.1 Diabetes E11.9 Sinusitis J32.9 Otitis media H66.90 Assessment & Plan Assessment & Plan (1) Essential hypertension: Code(s): I10 - Essential (primary) hypertension Category: Medical Plan: Blood?pressure?appears?well?controlled.??Goal?is?less?than?140/90 Continue?current?medication (2) Hypertriglyceridemia: Code(s): E78.1 - Pure hyperglyceridemia Category: Medical Plan: Triglycerides?much?improved?on?fenofibrate Continue?as?prescribed (3) Diabetes: Code(s): E11.9 - Type 2 diabetes mellitus without complications Category: Medical Plan: A1c?8.6%.??Still?too?high.??He?had?a delay?in?his?ability?to?get?dulaglutide. Also?he?thinks?he?is?only?on?dulaglutide?3?mg?weekly. Will?have?him?continue?current?medications Morning?blood?sugars?are?good He?will?test?his?blood?sugar?more?than?once?per?day?and?come?in?with?a?log?in?a? month. Will?adjust?medications?as?needed (4) Sinusitis: Code(s): J32.9 - Chronic sinusitis, unspecified Category: Medical Plan: Appears?to?have?a?sinus?infection?and?otitis?media Start?amoxicillin Can?also?use?Flonase He?notes?some?dizziness?which?is?likely?due?to?sinus?infection/otitis Hydrate?well If?he?is?still?having?problems?afterwards?will?evaluate?further (5) Otitis media: Code(s): H66.90 - Otitis media, unspecified, unspecified ear Category: Medical Plan: As?above Medications: New amoxicillin 500 mg PO Q12H 10 days 20 tabs 0RF fluticasone propionate 50 mcg/actuation (Flonase Allergy Relief) administer into each nostril 1 spray intranasal Q12H 30 days 16 grams 2RF
[2024-03-28 16:18] VITALS: BP 116/64; PULSE 86; RESP 16; TEMP 36.9; O2SAT 97; BMI 30.1
== END 2024-03-28 16:53 | disposition home or self-care (01) ==
LOC: HO.HMCFM 15:26
PROVIDERS: PCP Family Medicine; Visit Provider Family Medicine
DX: I10 Essential (primary) hypertension (principal); E78.1 Pure hyperglyceridemia; E11.9 Type 2 diabetes mellitus without complications; J32.9 Chronic sinusitis, unspecified; H66.90 Otitis media, unspecified, unspecified ear

== ENCOUNTER → 2024-03-28 15:25 | Outpatient (BNVA) | payer OTHER, SELFPAY | PROVIDERS: PCP Family Medicine; Visit Provider Family Medicine | DX: I10 Essential (primary) hypertension (principal); E78.1 Pure hyperglyceridemia; E11.9 Type 2 diabetes mellitus without complications; J32.9 Chronic sinusitis, unspecified; H66.90 Otitis media, unspecified, unspecified ear | CPT/HCPCS: 83036; 96127 ==

== ENCOUNTER 2024-04-13 13:45 | Outpatient (AMB) | payer OTHER, SELFPAY ==
--- NOTE | 2024-04-13 13:49 | AM.OFFWIN_ITS ---
Intake Vital Signs 04/13/24 13:55 Height 6 ft 3 in Weight 240 lb 8 oz BMI 30.1 BP 123/64 Blood Pressure Location Lt brachial Position Sitting Respiration 16 Pulse 87 Pulse Source Pulse Oximeter Temp 97.2 F Temp Source Oral Pulse Oximetry (%) 96 Oxygen Delivery Method Room Air Intake Visit Reasons: dizziness, nausea and ear problems. Intake Note: patient here c/o dizziness, nausea and ear problems Patient Tobacco Use Status: Never used Tobacco Allergies clarithromycin [From BIAXIN] Allergy (Severe, Verified 04/13/24 13:52) ANAPHYLAXIS ENVIRONMENTAL Allergy (Intermediate, Uncoded 10/29/23 09:57) ITCHY EYES RUNNY NOSE Medication List - Last Reconciled 04/13/24 by Tiffanie Bautista PA-C allopurinol 200 mg (2 x 100 mg) PO DAILY 90 days amlodipine 10 mg PO DAILY 30 days blood sugar diagnostic (FreeStyle Lite Strips) DX: E11.9, test blood sugar once a day, 90 days blood-glucose meter (FreeStyle Lite Meter kit) DX: E11.9, test blood sugar once a day, duration 999 days dulaglutide 4.5 mg (0.5 mL) subcut QWEEK 28 days fenofibrate micronized 200 mg PO DAILY 30 days fluticasone propionate 50 mcg/actuation (Flonase Allergy Relief) 1 spray intranasal Q12H 30 days lancets (FreeStyle Lancets) As directed losartan 50 mg PO DAILY 30 days metformin 500 mg PO BIDWMEAL 90 days Do you need a note to return to daycare/school/sports/work: Yes HPI dizziness, nausea and ear problems. HPI Details History of Present Illness The patient is a 54-year-old male with a significant past medical history of hypertension, hyperlipidemia and poorly-controlled type 2 diabetes presenting to the walk-in today with complaints of dizziness and episodes of near syncope. Approximately four weeks ago, the patient began experiencing sensations of warmth, sweating, nausea, and near faintness without completing the action of fainting. He describes an episode frequency of these symptoms up to six or seven times daily before initiating amoxicillin for a previously diagnosed double ear infection and sinus infection on 03/28 by PCP. Symptom relief was noted over the past weekend but recurred with awakening on Thursday. The episodes are not triggered by exertion and occur even in resting positions. Additional symptoms include trouble forming sentences while experiencing the lightheaded sensation, nighttime leg cramps, and difficulty sleeping. The patient is a known diabetic, taking metformin twice daily and Trulicity weekly. There has been no recent dosage adjustment to antihypertensive medication with recent laboratory tests indicating elevated hemoglobin A1c of 8.6. Dietary modifications have been undertaken by the patient, reducing bread and pasta intake while focusing on protein, vegetables, and selected fruits. His blood sugar readings show variability, and he reports an overall improvement in triglyceride levels after dietary adaptation and medication, including fenofibrate. The patient previously took amoxicillin for sinus and ear infections but reports only minimal nasal secretion. he states it does not feel blocked. No sinus pain or pressure. No current ear pain. At times he does feel a popping sensation in his ears but also has an excessive amount of wax. This is not uncommon for him. No hearing loss. No sore throat, swollen lymph nodes, fevers or chills. He states he does not really feel sick or achy. Family history is significant for diabetes and resultant renal disease but not cardiovascular events. . 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 - He engages in cycling as a form of [employer]. - His diet consists of limited carbohydr ates, with a focus on protein, vegetables, and certain fruits. - He has been maintaining weight loss an d reports a current weight of approximately 230 pounds. - He does not consume alcohol. - Reports adequate adherence to medicati on regimen and maintaining a stable routine for medication administration. Review of Systems - General: Denies pain. - Dermatologic: Denies rashes. - Neurologic: Reports nighttime leg cram ps. - Musculoskeletal: Reports leg cramps. - Respiratory: Denies coughing. - ENT: Reports ear popping and mild caleb estion. - Cardiovascular: Denies palpitations an d chest pain. Physical Exam General: Cooperative, healthy appearing, comfortable, no acute distress and well developed Orientation: Patient oriented x3 Limitations: No limitations Head: Normal to inspection Ears: Moderate amount of wax in both ears, no infection noted Nose: Normal external nose present, no redness or inflammation Face and sinus: No sinus tenderness, no facial tenderness Eyes: Appearance normal, both eyes and all related structures Neck: Normal visual inspection and Yes full ROM, no carotid bruit or narrowing heard Respiratory: Normal respiratory effort and able to speak in complete sentences. Clear to auscultation bilaterally, no cough Cardiovascular: Regular rate and rhythm. Normal S1 and S2, no murmur GI: Normal to inspection. Soft to palpation and nontender Skin: No rashes or lesions noted Neuro: Patient oriented x3 Extremities: Normal to inspection, no swelling noted Results - Labs and diagnostics will be conducted : EKG, CBC, metabolic panel, thyroid function, magnesium level, Lyme serology, and carotid ultrasound. Plan - Dizziness: EKG today in office normal sinus rhythm. Orthostatic WNL. Carotid ultrasound ordered, stress test and Holter monitor ordered. Labs ordered today. - Diabetes Mellitus: Continuous monitori ng of blood glucose levels is advised, particularly during symptomatic episodes. We discussed how to check blood sugars regularly. Reviewed rules of 15. We will increase metformin to 1000 mg twice a day. Continue Trulicity 4.5 mg weekly. He will call me if he is unable to tolerate the increased dosage. - Hypertension: Continue amlodipine and losartan - Hyperlipidemia: Continue fenofibrate. We will monitor. - Gout: Continued use of allopurinol is advised pending stable serum uric acid levels. Patient was informed and verbally consented to the use of an ambient scribe for clinic note documentation during this visit. Discussion Notes I discussed the potential causes of the patient's dizziness, including medication effects, blood pressure fluctuations, or heart-related issues. An EKG and orthostatic blood pressures will be obtained to evaluate cardiac contributions. We will further investigate with a carotid ultrasound. I emphasized the importance of monitoring blood glucose levels during dizzy spells as a precaution for hypoglycemia. There is acknowledgment of the challenges with current glycemic control and recent diet changes. The patient understands and agrees to the need for further diagnostics to pinpoint the etiology of his dizziness and related symptoms. Patient Instructions - Monitor blood glucose regularly, espec ially during dizzy spells. - Continue current medications as prescr ibed, and maintain current diet. - Report any increase in symptoms or new symptoms immediately. - Follow up after blood tests and ultras ound for further evaluation and management adjustments. 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 No prior study to compare. EKG interpreted by myself and Dr. Vargas [id number], Complete Assessment & Plan Assessment & Plan (1) Dizziness: Code(s): R42 - Dizziness and giddiness Plan: As listed above. Carotid ultrasound, EKG, stress test, Holter and labs ordered. (2) Pre-syncope: Code(s): R55 - Syncope and collapse Plan: As above (3) Leg cramps: Code(s): R25.2 - Cramp and spasm Plan: Magnesium ordered (4) Poorly controlled type 2 diabetes mellitus: Code(s): E11.65 - Type 2 diabetes mellitus with hyperglycemia Plan: Increase metformin. Continue Trulicity. Follow up in office on Thursday to be evaluated in endocrinology. (5) Essential hypertension: Code(s): I10 - Essential (primary) hypertension Plan: WNL. (6) Hypertriglyceridemia: Code(s): E78.1 - Pure hyperglyceridemia Plan: As above Plan More than 1 hour was spent in [id number] time today discussing his current medical conditions and symptoms that brought him into the office. Workup ordered. We will follow up pending test results. Orders: Orders Comprehensive Met. Panel Today E11.9 - Type 2 diabetes mellitus without complications, R25.2 - Cramp and spasm, R42 - Dizziness and giddiness, R55 - Syncope and collapse TSH reflex Free T4 Today E11.9 - Type 2 diabetes mellitus without complications, R25.2 - Cramp and spasm, R42 - Dizziness and giddiness, R55 - Syncope and collapse CA stress test Today E11.9 - Type 2 diabetes mellitus without complications, E78.1 - Pure hyperglyceridemia, I10 - Essential (primary) hypertension, R42 - Dizziness and giddiness, R55 - Syncope and collapse US carotid duplex BI Today E11.9 - Type 2 diabetes mellitus without co mplications, E78.1 - Pure hyperglyceridemia, R42 - Dizziness and giddiness, R55 - Syncope and collapse Complete Blood Count Auto Diff Today E11.9 - Type 2 diabetes mellitus without complications, R25.2 - Cramp and spasm, R42 - Dizziness and giddiness, R55 - Syncope and collapse B Type Natriuretic Peptide Today E11.9 - Type 2 diabetes mellitus without complications, R25.2 - Cramp and spasm, R42 - Dizziness and giddiness, R55 - Syncope and collapse Magnesium Today E11.9 - Type 2 diabetes mellitus without complications, R25.2 - Cramp and spasm, R42 - Dizziness and giddiness, R55 - Syncope and collapse Lyme IgG/IgM w/reflex to WB Today E11.9 - Type 2 diabetes mellitus without complications, R25.2 - Cramp and spasm, R42 - Dizziness and giddiness, R55 - Syncope and collapse Vitamin B12 and Folate Today E11.9 - Type 2 diabetes mellitus without complications, R25.2 - Cramp and spasm, R42 - Dizziness and giddiness, R55 - Syncope and collapse ECG holter monitor 24 hour Today R42 - Dizziness and giddiness, R55 - Syncope and collapse CA echo transthoracic complete Today R25.2 - Cramp and spasm, R42 - Dizziness and giddiness, R55 - Syncope and collapse Referrals Endocrinology Referral E11.65 - Type 2 diabetes mellitus with hyperglycemia Medications: New metformin 1,000 mg PO BIDWMEAL 60 tabs 2RF Discontinued metformin Discontinued Reason: Doctor's Order 500 mg PO BIDWMEAL 90 days 180 tabs 2RF Coding Level of Care Code Est Pt Level 5 (27618) Diagnoses Dizziness R42 Pre-syncope R55 Leg cramps R25.2 Poorly controlled type 2 diabetes mellitus E11.65 Essential hypertension I10 Hypertriglyceridemia E78.1 CPT Codes EKG - CPT: 05259-[id number], Complete ([id number])
[2024-04-13 13:55] VITALS: BP 123/64; PULSE 87; RESP 16; TEMP 36.2; O2SAT 96; BMI 30.1
== END 2024-04-13 15:39 | disposition home or self-care (01) ==
PROVIDERS: PCP Family Medicine; Visit Provider Physician Assistant
DX: R42 Dizziness and giddiness (principal); R55 Syncope and collapse; R25.2 Cramp and spasm; E11.65 Type 2 diabetes mellitus with hyperglycemia; I10 Essential (primary) hypertension; E78.1 Pure hyperglyceridemia

== ENCOUNTER → 2024-04-13 13:45 | Outpatient (BNVA) | payer OTHER, SELFPAY | PROVIDERS: PCP Family Medicine | DX: R42 Dizziness and giddiness (principal); R55 Syncope and collapse; R25.2 Cramp and spasm; E11.65 Type 2 diabetes mellitus with hyperglycemia; I10 Essential (primary) hypertension; E78.1 Pure hyperglyceridemia; Z79.84 Long term (current) use of oral hypoglycemic drugs | CPT/HCPCS: 93005 ==

== ENCOUNTER 2024-04-13 15:42 | Outpatient (REF) | payer OTHER, SELFPAY ==
[2024-04-13 17:46] LABS: MANUAL DIFF FLAG NO
[2024-04-13 17:56] LABS: Basophils Percent Auto 0.5 % (0-2); Eosinophils Absolute Auto 0.1 X10*3/uL (0.0-0.4); Eosinophils Percent Auto 0.8 % (0-4); Hematocrit 43.6 % (42.0-52.0); Hemoglobin 15.6 g/dl (14.0-18.0); Imm Gran Abs Auto 0.04 X10*3/uL (0.00-0.03); Imm Gran Pct Auto 0.5 % (0.0-0.4); Lymphocytes Absolute Auto 1.8 X10*3/uL (1.2-4.9); Lymphocytes Percent Auto 23.8 % (20-40); Mean Corpuscular HGB Conc 35.8 g/dl (31.0-36.0); Mean Corpuscular Hemoglobin 32.5 pg (27.0-33.0); Mean Corpuscular Volume 90.8 fL (80.0-98.0); Mean Platelet Volume 9.9 fL (9.4-12.4); Monocytes Absolute Auto 0.8 X10*3/uL (0.1-1.2); Monocytes Percent Auto 10.5 % (2-11); Neutrophils Absolute Auto 4.9 x10*3/uL (2.0-8.3); Neutrophils Percent Auto 63.9 % (45-73); Platelet Count 314 X10*3/uL (160-400); Red Cell Distribution Width 11.4 % (11.0-16.0); White Blood Count 7.6 X10*3/uL (4.8-10.8)
[2024-04-13 18:12] LABS: B Type Natriuretic Peptide < 10 pg/mL (<100)
[2024-04-13 18:17] LABS: Alanine Aminotransferase 51 U/L (0-40); Albumin Level 4.7 g/dL (3.5-5.0); Alkaline Phosphatase 47 U/L (39-117); Anion Gap 13 (12-20); Aspartate Amino Transferase 31 U/L (5-37); Bilirubin Total 0.4 mg/dL (0.0-1.0); Blood Urea Nitrogen 18 mg/dL (9-16); Carbon Dioxide 28 mmol/L (22-29); Chloride 95 mmol/L (96-108); Estimated Glomerular Filt Rate > 60; Glucose Random 177 mg/dL (60-115); Magnesium 2.2 mg/dL (1.6-2.6); Potassium 4.4 mmol/L (3.3-5.1); Sodium 132 mmol/L (135-145); Total Protein 7.2 g/dL (6.5-8.0)
[2024-04-13 18:40] LABS: Folate 10.9 ng/mL (> or = 4.0); Vitamin B12 312 pg/mL (200-900)
[2024-04-13 19:07] LABS: TSH reflex Free T4 1.47 uIU/mL (0.32-4.0)
[2024-04-15 06:28] LABS: Lyme Abs Screen <0.90 index
== END 2024-04-13 15:43 | disposition home or self-care (01) ==
LOC: HO.WFDLDS 15:42
PROVIDERS: Visit Provider Physician Assistant
DX: R25.2 Cramp and spasm (principal); R55 Syncope and collapse; R42 Dizziness and giddiness; E11.9 Type 2 diabetes mellitus without complications
CPT/HCPCS: 36415; 80053; 82607; 82746; 83735; 83880; 84443; 85025; 86617; 86618

== ENCOUNTER 2024-04-26 14:04 | Outpatient (REF) | payer OTHER, SELFPAY ==
--- NOTE | ~2024-04-26 | US_ITS ---
EXAMINATION: US EXTRACRANIAL CAROTID DUPLEX, BILATERAL CLINICAL INFORMATION: Syncope and collapse COMPARISON: None TECHNIQUE: Real-time ultrasound and Doppler techniques (integrating B-mode 2-D vascular images, Doppler spectral analysis and color-flow Doppler imaging) were utilized to interrogate the extracranial carotid arteries, the vertebral arteries and proximal subclavian arteries bilaterally. The degree of stenosis is determined by criteria similar to NASCET. FINDINGS: Right Side: 1. There is mild atherosclerotic plaque seen in the bifurcation/proximal ICA region. 2. The common carotid artery PSV proximally is 134 cm/s and distally 92 cm/s. 3. The proximal internal carotid artery velocities are 84 cm/s systolic and 25 cm/s diastolic. 4. The proximal external carotid artery PSV is 106 cm/s. 5. The vertebral artery shows antegrade flow. 6. The subclavian artery waveforms are normal. Left Side: 1. There is minimal atherosclerotic plaque seen in the bifurcation/proximal ICA region. 2. The common carotid artery PSV proximally is 134 cm/s and distally 97 cm/s. 3. The proximal internal carotid artery velocities are 86 cm/s systolic and 30 cm/s diastolic. 4. The proximal external carotid artery PSV is 72 cm/s. 5. The vertebral artery shows antegrade flow. 6. The subclavian artery waveforms are normal. US/US carotid duplex BI IMPRESSION: 1. RIGHT: Minimal, non-hemodynamically significant stenosis of the proximal right internal carotid artery corresponding to a 0-49% stenosis by velocity criteria. 2. LEFT: Minimal, non-hemodynamically significant stenosis of the proximal left internal carotid artery corresponding to a 0-49% stenosis by velocity criteria. Electronically signed by: Samuel Whaley MD 05/11/2024 04:54 PM [facility]
== END 2024-04-26 14:05 | disposition home or self-care (01) ==
LOC: HO.US 14:04
PROVIDERS: PCP Family Medicine; Visit Provider Physician Assistant
DX: R55 Syncope and collapse (principal); R42 Dizziness and giddiness; E78.1 Pure hyperglyceridemia; E11.9 Type 2 diabetes mellitus without complications
CPT/HCPCS: 93880

== ENCOUNTER 2024-04-28 10:44 | Outpatient (REF) | payer OTHER, SELFPAY ==
[2024-04-28 14:12] LABS: Anion Gap 13 (12-20); Blood Urea Nitrogen 14 mg/dL (9-16); Calcium 10.2 mg/dL (8.4-10.2); Carbon Dioxide 22 mmol/L (22-29); Chloride 102 mmol/L (96-108); Estimated Glomerular Filt Rate > 60; Glucose Random 137 mg/dL (60-115); Potassium 4.4 mmol/L (3.3-5.1); Sodium 133 mmol/L (135-145)
== END 2024-04-28 10:45 | disposition home or self-care (01) ==
LOC: HO.WFDLDS 10:44
PROVIDERS: Visit Provider Physician Assistant
DX: E87.1 Hypo-osmolality and hyponatremia (principal)
CPT/HCPCS: 36415; 80048

== ENCOUNTER 2024-04-29 13:38 | Outpatient (AMB) | payer OTHER, SELFPAY ==
--- NOTE | 2024-04-29 13:40 | MHC.PC.OV ---
Vital Signs 04/29/24 13:48 Height 6 ft 3 in Weight 242 lb 4 oz BMI 30.3 BP 108/60 Blood Pressure Location Rt brachial Position Sitting Respiration 14 Pulse 91 Pulse Source Pulse Oximeter Temp 97.8 F Temp Source Oral Pulse Oximetry (%) 98 Oxygen Delivery Method Room Air Intake Visit Reasons: [facility] [place] Intake Note: tcm Allergies clarithromycin [From BIAXIN] Allergy (Severe, Verified 04/29/24 13:45) ANAPHYLAXIS ENVIRONMENTAL Allergy (Intermediate, Uncoded 10/29/23 09:57) ITCHY EYES RUNNY NOSE Tobacco use date assessed: 10/29/23 Dental Screening Dental Screen Date: 10/29/23 HPI [facility] [place] labs HPI Details 54 y/o male presents to / hospital discharge. Had intermittent episodes of flushing, dizziness, tremors, difficulty speaking that lasted each about less than a minute. Had denied any chest pain or shortness of breath with these episodes. Head?CT?was?negative?for?stroke. EEG?was?positive?for?focal?seizure?activity. MRI?did?not?show?stroke?or?mass. Neurology?started?him?on?lacosamide?and?also?aspirin. He?has?a?follow-up?MRI?scheduled?for?this?Thursday. Patient?also?had?electrolyte?and?metabolic?disturbances. Hyponatremia?and?a?metabolic?acidosis.??His?tox?screen?was?negative.??Blood?sugars?were?only?mildly?elevated?but?his?A1c?was?9.2%. He?did?appear?dehydrated.??His?metformin?had?been?increased?recently. Chest?CT?showed?2?pulmonary?nodules,?16?mm?and?8?mm?in?size. Patient?says?he?has?not?any?follow-up?scheduled?with?a?dolly operator. He?had?been?seen?at the?walk-in?on?04/13/2024?for?symptoms?mentioned?above?and echocardiogram,?Holter?monitor,?carotid?duplex?and?lab?work?were?ordered. Echocardiogram?was?obtained?wall?at?[facility]?Hospital.??Will?request?report. He?has?a?follow-up?appointment?with?Neurology?on?April?. Patient?says?that?his?blood?sugars?have?been in?the?130s?though?he?does?not?test?often. No?low?blood?sugars. He?is?taking?metformin?1000?mg?b.i.d.?as?prescribed?as?well?as?Trulicity?and?glipizide. Continues taking meds as prescribed. TCM TCM Information Date of Discharge 04/19/24 Discharged From Other ([employer] [facility] Interactive Contact Date (Reference documentation from this date) 04/29/24 [facility] Medical History Hx of gout Surgical History History of repair of left hip joint History of plastic surgery History of right elbow replacement History of tonsillectomy Family History Other Mental health disorder Substance use disorder Social History Housing: House Alcohol intake: current Alcohol intake frequency: a few times a month Patient Tobacco Use Status: Never used Tobacco e-Cigarette/Vaping Use: Never Used Second Hand Smoke Exposure: No service: No Current occupational status: employed 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 [employer] Current occupational exposures/hazards: No Cognitive needs: No Hearing needs: No Vision needs: No (reading glasses) Questionnaire Thrive Questionnaire Date Thrive assessed: 03/21/24 I am a: Patient What is your living situation today?: I have a steady place to live Within the past 12 months, did the food you bought not last and you didn't have the money to get more?: Never true Within the past 12 months, did you worry whether your food would run out before you got money to buy more?: Never true Do you have trouble paying for medicines?: No Do you have trouble getting transportation to medical appointments?: No Do you have trouble paying your heating and electricity bill?: No Do you have trouble taking care of your child, family member or friend?: No Do you have trouble with day-to-day activities such as bathing, preparing meals, shopping, managing finances, etc.?: No Are you currently unemployed and looking for a job?: No Are you interested in more education?: No Please select the resources that you would like help with: None Currently or been in a relationship where the following occur: No concerns reported THRIVE Score: 0 BROCK-7 AMB Questionnaire BROCK-7 Date BROCK - 7 assessed: 11/13/22 Source: Developed by Drs. Clarke Bella, Lily Hale, Rogelio Dunne and colleagues, with an educational chavez from [employer]. Review of Systems Const Denies chills, Denies fatigue, Denies fever(s), Denies headache(s) and Denies weakness ENT Denies dizziness and Denies headache(s) Card Denies chest pain, Denies lightheadedness, Denies dyspnea and Denies other (Palpitations) Resp Denies cough, Denies dyspnea, Denies wheezing and Denies other ( shortness of breath) Musc Denies numbness and Denies tingling Neuro Denies dizziness, Denies headache(s), Denies numbness, Denies tingling, Denies paresthesias and Denies weakness Psych Denies anxiety and Denies depression Endo Denies fatigue Aller/Immun Denies wheezing Physical exam (Primary Care) Vital Signs: Last Vital Signs Temp 97.8 F 04/29/24 13:48 Pulse 91 04/29/24 13:48 Resp 14 04/29/24 13:48 BP 108/60 04/29/24 13:48 Pulse Ox 98 04/29/24 13:48 Oxygen Delivery Method Room Air 04/29/24 13:48 BMI result Body Mass Index 30.3 Tobacco/Smoking Status: Tobacco use Status Tobacco use date assessed 10/29/23 04/29/24 13:40 Patient Tobacco Use Status Never used Tobacco 04/29/24 13:40 e-Cigarette/Vaping Use Never Used 04/29/24 13:40 Thrive Assessment: Date of Thrive Assessment Date Thrive assessed 03/21/24 04/29/24 13:40 Currently or been in a relationship where the following occur: No concerns reported Const General: no acute distress and well developed Nutritional Appearance: well nourished Orientation/consciousness: patient oriented x3 HENMT Head: Yes normocephalic and Yes atraumatic Eyes General: appearance normal, both eyes and all related structures Pupils: Equal, round and reactive pupils present EOM: EOMs intact bilaterally Resp Effort & Inspection: normal respiratory effort Auscultation: clear to auscultation bilaterally Cardio Rate: regular rate Rhythm: regular rhythm Heart sounds: S1 normal heart sound present, S2 normal heart sound present, no gallops, no murmurs and no rubs Neuro General: patient oriented x3 and gait normal Cranial nerves: Yes Equal, round and reactive pupils present Psych Affect: normal affect Coding Level of Care Code Est Pt Level 4 (43000) Diagnoses Seizures R56.9 Pre-syncope R55 Poorly controlled type 2 diabetes mellitus E11.65 Pulmonary nodules R91.8 Hyponatremia E87.1 Assessment & Plan Assessment & Plan (1) Seizures: Code(s): R56.9 - Unspecified convulsions Category: Medical Plan: Positive?EEG?with?focal?seizures Initial?MRI?is?negative?but?he?has?another?MRI?scheduled?for?this?Thursday. For?now?he?remains?on?aspirin?and?lacosamide?and?will?have?a?follow-up?with??Billy?on?April? He?had?a?carotid?ultrasound?at?[facility] [place]?and?I?am?requesting?the?report He?has?an?outstanding?Holter?monitor?test?at?[facility] [place] (2) Pre-syncope: Code(s): R55 - Syncope and collapse Category: Medical Plan: Has?outstanding?workup?as?above (3) Poorly controlled type 2 diabetes mellitus: Code(s): E11.65 - Type 2 diabetes mellitus with hyperglycemia Category: Medical Plan: Patient?will?continue?current?medications?as?continued?on?discharge Check?blood?sugars?regularly Call?or?return?to?office?if?not?controlled. (4) Pulmonary nodules: Code(s): R91.8 - Other nonspecific abnormal finding of lung field Category: Medical Plan: 16?mm?and?8?mm?nodules?seen?incidentally?on?CTA?head/neck?and?patient?also?has?hyponatremia. Concern?for?malignancy. Will?get?dedicated?CT?chest Referred?to?pulmonology (5) Hyponatremia: Code(s): E87.1 - Hypo-osmolality and hyponatremia Category: Medical Plan: Mild. ?Rechecking?labs Orders: Orders Comprehensive Met. Panel Today R56.9 - Unspecified convulsions Metanephrines, Plasma Today E87.1 - Hypo-osmolality and hyponatremia, R23.2 - Flushing Lyme IgG/IgM w/reflex to WB Today R23.2 - Flushing Osmolality, Serum Today R91.8 - Other nonspecific abnormal finding of lung field Complete Blood Count Auto Diff Today R91.8 - Other nonspecific abnormal finding of lung field, Z00.00 - Encounter for general adult medical examination without abnormal findings CT chest w IV con Today E87.1 - Hypo-osmolality and hyponatremia, R91.8 - Other nonspecific abnormal finding of lung field Referrals Sleep Medicine Referral G47.30 - Sleep apnea, unspecified Pulmonology Referral R91.8 - Other nonspecific abnormal finding of lung field
[2024-04-29 13:48] VITALS: BP 108/60; PULSE 91; RESP 14; TEMP 36.6; O2SAT 98; BMI 30.3
== END 2024-04-29 15:07 | disposition home or self-care (01) ==
PROVIDERS: PCP Family Medicine; Visit Provider Family Medicine
DX: R56.9 Unspecified convulsions (principal); R55 Syncope and collapse; E11.65 Type 2 diabetes mellitus with hyperglycemia; R91.8 Other nonspecific abnormal finding of lung field; E87.1 Hypo-osmolality and hyponatremia

== ENCOUNTER → 2024-04-29 13:38 | Outpatient (BNVA) | payer OTHER, SELFPAY | PROVIDERS: PCP Family Medicine; Visit Provider Family Medicine ==

== ENCOUNTER 2024-04-29 15:13 | Outpatient (REF) | payer OTHER, SELFPAY ==
[2024-04-29 17:48] LABS: MANUAL DIFF FLAG NO
[2024-04-29 17:56] LABS: Basophils Absolute Auto 0.1 X10*3/uL (0.0-0.2); Eosinophils Absolute Auto 0.2 X10*3/uL (0.0-0.4); Eosinophils Percent Auto 2.2 % (0-4); Hematocrit 45.1 % (42.0-52.0); Hemoglobin 16.2 g/dl (14.0-18.0); Imm Gran Abs Auto 0.04 X10*3/uL (0.00-0.03); Imm Gran Pct Auto 0.5 % (0.0-0.4); Lymphocytes Absolute Auto 1.9 X10*3/uL (1.2-4.9); Mean Corpuscular HGB Conc 35.9 g/dl (31.0-36.0); Mean Corpuscular Hemoglobin 32.9 pg (27.0-33.0); Mean Corpuscular Volume 91.5 fL (80.0-98.0); Mean Platelet Volume 9.8 fL (9.4-12.4); Monocytes Absolute Auto 0.9 X10*3/uL (0.1-1.2); Monocytes Percent Auto 10.4 % (2-11); Neutrophils Absolute Auto 5.2 x10*3/uL (2.0-8.3); Neutrophils Percent Auto 62.9 % (45-73); Platelet Count 414 X10*3/uL (160-400); Red Blood Count 4.93 X10*6/uL (4.60-5.80); Red Cell Distribution Width 11.8 % (11.0-16.0); White Blood Count 8.2 X10*3/uL (4.8-10.8)
[2024-04-29 18:08] LABS: Alkaline Phosphatase 41 U/L (39-117); Anion Gap 12 (12-20); Aspartate Amino Transferase 36 U/L (5-37); Bilirubin Total 0.3 mg/dL (0.0-1.0); Blood Urea Nitrogen 13 mg/dL (9-16); Calcium 10.8 mg/dL (8.4-10.2); Carbon Dioxide 26 mmol/L (22-29); Chloride 100 mmol/L (96-108); Estimated Glomerular Filt Rate > 60; Glucose Random 131 mg/dL (60-115); Sodium 134 mmol/L (135-145); Total Protein 7.9 g/dL (6.5-8.0)
[2024-04-29 18:26] LABS: Alanine Aminotransferase 112 U/L (0-40)
[2024-05-02 16:53] LABS: Lyme Abs Screen <0.90 index
== END 2024-04-29 15:14 | disposition home or self-care (01) ==
LOC: HO.WFDLDS 15:13
PROVIDERS: Visit Provider Family Medicine
DX: Z00.00 Encounter for general adult medical examination without abnormal findings (principal); R56.9 Unspecified convulsions; R23.2 Flushing; R91.8 Other nonspecific abnormal finding of lung field
CPT/HCPCS: 36415; 80053; 85025; 86617; 86618

== ENCOUNTER 2024-05-03 14:51 | Outpatient (AMB) | payer OTHER, SELFPAY ==
[2024-05-03 14:54] VITALS: BP 118/60; PULSE 82; O2SAT 99
--- NOTE | 2024-05-03 14:54 | MHC.OFFVIS ---
Vital Signs 05/03/24 14:54 Weight 228 lb BP 118/60 Blood Pressure Location Rt brachial Position Sitting Pulse 82 Pulse Source Pulse Oximeter Pulse Oximetry (%) 99 Oxygen Delivery Method Room Air Intake Visit Reasons: Pulmonary Nodules (CT Angio Neck) Allergies clarithromycin [From BIAXIN] Allergy (Severe, Verified 05/03/24 14:59) ANAPHYLAXIS ENVIRONMENTAL Allergy (Intermediate, Uncoded 05/03/24 14:59) ITCHY EYES RUNNY NOSE Medication List - Last Reconciled 05/03/24 by Jenny Vazquez LPN allopurinol 200 mg (2 x 100 mg) PO DAILY 90 days amlodipine 10 mg PO DAILY 30 days aspirin 81 mg PO DAILY blood sugar diagnostic (FreeStyle Lite Strips) DX: E11.9, test blood sugar once a day, 90 days blood-glucose meter (FreeStyle Lite Meter kit) DX: E11.9, test blood sugar once a day, duration 999 days dulaglutide 4.5 mg (0.5 mL) subcut QWEEK 28 days fenofibrate micronized 200 mg PO DAILY 30 days fluticasone propionate 50 mcg/actuation (Flonase Allergy Relief) 1 spray intranasal Q12H 30 days lacosamide mg PO lancets (FreeStyle Lancets) As directed losartan 50 mg PO DAILY 30 days metformin 1,000 mg PO BIDWMEAL HPI Comments Details: The patient is here for pulmonary evaluation. The patient is a 54-year-old gentleman nonsmoker who apparently was in her usual state health until back in March he started developing neurological symptoms. He was brought to the [facility] where he underwent a CT scan of the head and neck. The CT scan of the neck demonstrated part of the lung parenchyma. It demonstrated a 17 mm right sided nodular density along with an 8 mm nodule adjacent to it. I did personally reviewed the images. The nodules were both smooth circumferential but concerning size. Very limited as far as the lung tissue can not really appreciate the mediastinum clearly all the rest of the lower lung zones. The patient was then referred to Cardiology. He is having a full cardiac workup and ultimately diagnosed with seizures. He did have an MRI is going to be following with Neurology as well. For now the patient denies any respiratory complaints. Denies any shortness breath or cough. 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 Based on the gravity of the nodular densities I do believe a PET scan will be helpful to further delineate this nodule and to help with management. [facility] Medical History (Updated 05/03/24 @ 21:15 by Philippe Velazquez MD) Pulmonary nodule 1 cm or greater in diameter Hx of gout Surgical History History of repair of left hip joint History of plastic surgery History of right elbow replacement History of tonsillectomy Family History Other Mental health disorder Substance use disorder Social History Housing: House Alcohol intake: current Alcohol intake frequency: a few times a month Patient Tobacco Use Status: Never used Tobacco e-Cigarette/Vaping Use: Never Used Second Hand Smoke Exposure: No service: No Current occupational status: employed 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 [employer] Current occupational exposures/hazards: No Cognitive needs: No Hearing needs: No Vision needs: No (reading glasses) Review of Systems Const Denies fever(s), Denies night sweats and Denies weight loss Eyes Reports no additional complaints ENT Reports no additional complaints Card Denies chest pain and Denies dyspnea on exertion Resp Denies cough, Denies hemoptysis, Denies dyspnea on exertion and Denies wheezing GI Reports no additional complaints Musc Reports no additional complaints Skin/Breast Denies rash Neuro Reports as per HPI Juan Alberto/Lymph Reports no additional complaints Aller/Immun Denies wheezing Physical Exam Vital Signs: Last Vital Signs Pulse 82 05/03/24 14:54 BP 118/60 05/03/24 14:54 Pulse Ox 99 05/03/24 14:54 Oxygen Delivery Method Room Air 05/03/24 14:54 Const General: comfortable HEENT Head: Yes normocephalic Neck Neck: Yes supple Chest Chest palpation & inspection: normal inspection of the chest Resp Effort & Inspection: normal respiratory effort Auscultation: clear to auscultation bilaterally Cardio Heart sounds: S1 normal heart sound present and S2 normal heart sound present GI Palpation (GI): Soft to palpation Skin General skin exam: no rashes or lesions noted Extrem General: Yes no clubbing, cyanosis or edema Results Reviewed Results Reviewed: Assessment & Plan Assessment & Plan (1) Pulmonary nodule 1 cm or greater in diameter: Code(s): R91.1 - Solitary pulmonary nodule Category: Medical (2) Pulmonary nodules: Code(s): R91.8 - Other nonspecific abnormal finding of lung field Category: Medical Plan The large nodule meassuring 1.6 to 1.7 cm in the right hemithorax. The size is concerning and associated with an intermidiate 8mm nodule. It has smooth borders, carcinoid is in the differential. He will need a diagnostic intervention. Requesting a CT/PET to assess extent of disease and decided biopsy versus surgery. PET PFTs cardiac work up underway F/U 6-8 weeks Orders: Orders PET CT fusion skull to thigh Today R91.1 - Solitary pulmonary nodule PFT pulmonary function test Today R91.1 - Solitary pulmonary nodule Coding Level of Care Code New Pt Level 5 (05247) Diagnoses Pulmonary nodule 1 cm or greater in diameter R91.1 Pulmonary nodules R91.8 Time Spent (min) 60
== END 2024-05-03 15:34 | disposition home or self-care (01) ==
PROVIDERS: PCP Family Medicine; Referring Provider Family Medicine; Visit Provider Hospitalist
DX: R91.1 Solitary pulmonary nodule (principal); R91.8 Other nonspecific abnormal finding of lung field
CPT/HCPCS: 99205

== ENCOUNTER 2024-05-10 07:27 | Outpatient (REF) | payer OTHER, SELFPAY ==
--- NOTE | 2024-05-10 08:00 | PFT_ITS ---
Flows: FEV1: 108 % of predicted at 4.58 L FVC: 103 % of predicted at 5.65 L FEV1/FVC: 81 % Bronchodilator response: Absent Volumes: Total lung capacity: 87 % of predicted at 7.14 L Residual volume: 71 % of predicted at 1.65 L Slow vital capacity: 92 % of predicted at 5.50 L Expiratory reserve volume: 25 % of predicted at 0.43 L Diffusion capacity: Normal Impression: No obstructive or restrictive ventilatory defect. No bronchodilator response. Decreased expiratory reserve volume suggests extrathoracic restriction likely secondary to abdominal obesity. MTDD
== END 2024-05-10 07:28 | disposition home or self-care (01) ==
LOC: HO.RESP 07:27
PROVIDERS: PCP Physician Assistant; Visit Provider Hospitalist
DX: R91.1 Solitary pulmonary nodule (principal)
CPT/HCPCS: 94010; 94640; 94727; 94729

== ENCOUNTER → 2024-05-10 08:00 | Outpatient (BNV) | payer OTHER, SELFPAY | PROVIDERS: PCP Physician Assistant; Visit Provider Internal Medicine Pulmonary Disease | DX: R91.1 Solitary pulmonary nodule (principal) | CPT/HCPCS: 94060; 94727; 94729 ==

== ENCOUNTER → 2024-05-13 07:57 | Outpatient (REF) | payer OTHER, SELFPAY ==
--- NOTE | 2024-05-13 08:03 | CA_ITS ---
Transthoracic Echocardiogram Patient (Last, First, Middle): Kiran Ashton C Gender: Male Date of : 1970 Age: 54 Procedure Date: 05/13/2024 Procedure Type: Transthoracic Echocardiogram Location: OP Height: 190.5 cm Weight: 103.42 kg BSA: 2.32 m2 Heart Rate: 80 bpm BP: 110 / 70 mmHg Car Sales Representative: DAT Referring MD: Tfifanie Bautista PA-C Symptoms: R42 - Dizziness and giddiness Study Quality: Adequate ECG Rhythm: Sinus Conclusions: - The left ventricular systolic function is normal. The calculated ejection fraction is 61% by biplane method. - No obvious valvular pathology seen on this study. Findings Left Ventricle Normal left ventricular cavity size. There is mildly increased left ventricular wall thickness. The left ventricular systolic function is normal. The calculated ejection fraction is 61% by biplane method. There is no evidence of regional wall motion abnormalities. Diastolic function is normal for age. Right Ventricle Normal right ventricular cavity size and systolic function. Atria Both atria are normal in size. Aortic Valve There is a normal trileaflet aortic valve. There is no aortic valve stenosis. There is no aortic valve regurgitation. Mitral Valve The mitral valve appears normal. There is trace mitral valve regurgitation. There is no mitral valve stenosis. Pulmonic Valve The pulmonic valve is likely normal. Tricuspid Valve Normal tricuspid valve structure. There is trace tricuspid valve regurgitation. There is no evidence of pulmonary hypertension. Great Vessels The asc aorta is normal in size. Venous The inferior vena cava is normal in size and collapses greater than 50% with inspiration. Pericardium/Pleural There is no evidence of pericardial effusion. Prior Study Comparison No prior study available for comparison. Recommendations, Care & Conclusions No obvious valvular pathology seen on this study. Measurements 2D Linear Measurements IVSd: 1.08 0.6-0.9/0.6-1.0 cm LVIDd: 4.40 3.9-5.3/4.2-5.9 cm LVIDd Index: 1.90 2.4-3.2/2.2-3.1 cm/m2 LVIDs: 2.58 2.0-3.6 cm LVPWd: 1.15 0.7-1.1 cm LA Diam: 3.80 2.7-3.8/3.0-4.0 cm LAIDs Index: 1.64 1.5-2.3 cm/m2 LV Mass: 214.50 67-162/88-224 g LV Mass Index: 92.46 43-95/49-115 g/m2 LVOT Diam: 2.40 3.0+(-)1.3 cm 2D Systolic Function EF 4C: 64.20 >55% EF 2C: 57.10 >55% EF BiP: 61.00 >55% Mitral Valve MV Pk E: 0.74 MV PK A: 0.43 MV Decel Time: 219.00 E/A: 1.70 E'Lateral: 11.10 E'Medial: 7.62 E/E' Med: 9.70 E/E' Lat: 6.60 PHT: 64.00 MVA PHT: 3.44 Decel [place]: 3.36 Aortic Valve AoV Pk Vasquez: 1.33 AoV Mn Vasquez: 1.02 AoV VTI: 0.25 AoV Pk Grad: 7.00 Aov Mn Grad: 5.00 SOC[place]RO Cont.VTI: 3.46 LVOT LVOT Pk Vasquez: 1.11 LVOT Mn Vasquez: 0.78 LVOT VTI: 0.19 LVOT Pk Grad: 5.00 LVOT Mn Grad: 3.00 LVOT Diam: 2.40 LVOT Area: 4.52 Diastolic Function MV Pk E: 0.74 MV Pk A: 0.43 E/A: 1.70 E'Medial: 7.62 E/E' Med: 9.70 E' Laterial: 11.10 E/E' Lat: 6.60 Right Ventricle TAPSE (mm): 21.20 TVS' Vasquez: 15.40 Tricuspid Valve TR Pk Vasquez: 1.42 TR Pk Grad: 8.00 RA Press: 3.00 RVSP: 11.00 Great Vessels Aorta Sinus of Valsalva: 3.40 2.0-3.5 cm Ao Asc: 3.20 2.1-3.4 cm Ao Arch: 2.60 Pulmonary Valve PV Pk Vasquez: 1.82 Peak PV Grad: 13.00 Updated in Other Vendor System with Status of Final Nathan Mohr MD electronically signed on 05/14/2024 2:07:15 PM with status of Final
--- NOTE | 2024-05-13 08:03 | CA_ITS ---
Acquisition Time: 2024-05-13 09:51:46 Total Exercise Time: 00:07:10 Test Indications: SYNCOPE Medications: SEE H Protocol: ERIKA Max HR: 153 BPM 92% of Pred: 165 BPM Max BP: 148/060 mmHG Max Work Load: 8.8 METS Exercise Stress Test with exercise 7 mins 10 secs of Erika Protocol, acheiving 91% MPHR, without any anginal symptoms, with no tremors or headache, with isolated PVC, with normotensive response to exercise. Without EKG changes meeting criteria for ischemia. Test reviewed with Dr. Mohr. Referred By: Tiffanie Bautista Overread By: Fabien Gee
== END ==
LOC: HO.CARD 07:57
PROVIDERS: PCP Family Medicine; Visit Provider Physician Assistant
DX: R55 Syncope and collapse (principal); R42 Dizziness and giddiness; I10 Essential (primary) hypertension; E11.9 Type 2 diabetes mellitus without complications; E78.1 Pure hyperglyceridemia; R25.2 Cramp and spasm
CPT/HCPCS: 93017; 93225; 93306

== ENCOUNTER → 2024-05-13 08:03 | Outpatient (BNV) | payer OTHER, SELFPAY | PROVIDERS: PCP Family Medicine; Visit Provider Internal Medicine | DX: I49.3 Ventricular premature depolarization (principal) | CPT/HCPCS: 93016; 93018; 93227; 93320; 93325; 93350 ==

== ENCOUNTER 2024-05-16 13:44 | Outpatient (REF) | payer OTHER, SELFPAY ==
--- NOTE | ~2024-05-16 | CT_ITS ---
EXAMINATION: CT CHEST WITH CONTRAST CLINICAL INFORMATION: Other nonspecific abnormal finding of lung field COMPARISON: Chest radiograph 09/25/2018 TECHNIQUE: Multidetector volumetric CT imaging of the chest was obtained after the administration of 65 mL of Omnipaque 350 intravenous contrast without immediate adverse reactions. Axial MIP volume rendering provided. Sagittal and coronal reformatted images were obtained. This CT examination was performed using dose optimization techniques as appropriate, variously including the following: *Automated exposure control *Adjustment of mA and/or kV according to patient size (this includes techniques or standardized protocols for targeted exams where dose is matched to indication/reason for exam; i.e. extremities or head) *Use of iterative reconstruction technique DLP: 196 mGy-cm FINDINGS: LUNGS: Central airways are patent. No focal consolidation or mass. Dependent bilateral subsegmental atelectasis. No pleural effusion or pneumothorax. There is a 1.3 x 0.9 cm fat attenuating lesion within the right lower lobe adjacent to the major fissure. There is a 0.5 cm medial right upper lobe pulmonary nodule (series #7 axial image 56). There is an additional 0.7 cm low-density nodule within the right lower lobe adjacent to the major fissure. There are multiple angular nodules along the bilateral fissures which are favored to represent perifissural lymph nodes. MEDIASTINUM: The heart is globally normal without peripheral effusion. No coronary arterial calcifications. No mediastinal or hilar lymphadenopathy. Normal thyroid. AXILLA: No lymphadenopathy. UPPER ABDOMEN: Unremarkable OSSEOUS STRUCTURES: Unremarkable. CT/CT chest w IV con IMPRESSION: 1. There is a 1.3 cm fat attenuating lesion within the right lower lobe adjacent to the major fissure. 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 2. There is an additional 0.7 cm low-density nodule within the right lower lobe adjacent to the major fissure and a 0.5 cm medial right upper lobe pulmonary nodule. According to the UPDATED 2017 Fleischner Society recommendations, the advised follow-up imaging for multiple solid nodules, the largest measuring 6 mm or greater, is: LOW RISK PATIENT: CT at 3-6 months, then consider CT at 18-24 months. HIGH RISK PATIENT: CT at 3-6 months, then at 18-24 months. Fleischner guidelines were followed. Electronically signed by: Roseline Arredondo DO 05/16/2024 07:30 PM EST
[2024-05-16] MEDS: iohexoL 350 MG/ML 100 ML INFUS..BTL 65 ML IV (16:04)
== END 2024-05-16 13:45 | disposition home or self-care (01) ==
LOC: HO.CT 13:44
PROVIDERS: PCP Family Medicine; Visit Provider Family Medicine
DX: R91.8 Other nonspecific abnormal finding of lung field (principal); E87.1 Hypo-osmolality and hyponatremia
CPT/HCPCS: 71260; Q9967

== ENCOUNTER 2024-05-19 14:37 | Outpatient (AMB) | payer OTHER, SELFPAY ==
[2024-05-19 14:51] VITALS: BMI 28.5
--- NOTE | 2024-05-19 14:51 | A.OFFVIS_ITS ---
Vital Signs 05/19/24 14:51 Height 6 ft 3 in Weight 228 lb BMI 28.5 Intake Visit Reasons: INP-MATTHEW Intake Note: Patient presents for MATTHEW Allergies clarithromycin [From BIAXIN] Allergy (Severe, Verified 05/19/24 14:53) ANAPHYLAXIS ENVIRONMENTAL Allergy (Intermediate, Uncoded 05/19/24 14:53) ITCHY EYES RUNNY NOSE HPI Comments Details: Referred to us by PCP Dr. Vargas for sleep evaluation, and recent seizure like activity. Interim medical history: Apr 16, 2024 had a seizure, was treated at [facility] with VEEG monitoring for 4 days, his entire left side went numb, vision was normal, he did not bite his tongue, speech was slurred, could not speak, was unable to move his left leg, left hand tremor. They did an EEG and was treated with Lacosamide 200mg PO BID for seizure like activity. He usually goes to bed at 9:30pm and wakes up at 3-3:30am then he is unable to fall back asleep. His sleep has always been disrupted prior to this and he feels fatigued, snores loudly, gasps for air according to his partner. He denies morning headaches, has hiccups since his late 30s they do go away spontaneously, however he is unable to sleep due to the hiccups. He has been water fasting 7:30pm to 9:00am. He drinks 8-12 bottles of 12- 14 ounces water daily. He is being followed by his PCP for RLL nodules, 16 and 18 mm, Pulmonary referral, and MRI done quarterly post seizure diagnosis. His A1c is 7-7.5 better controlled on dulaglutide and metformin, will f/u with Endocrine after Pulmonary d/t Nodule RLL. His diet is good, lost 27 lbs in 8-10wks. He is active, walks about 2-2.5 miles daily. His lymph nodes sublingual are swollen will f/u with PCP tomorrow 05/20/2024. He does not smoke or drink alcohol. 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 [employer] Current occupational exposures/hazards: No Cognitive needs: No Hearing needs: No Vision needs: No (reading glasses) Review of Systems Const All systems reviewed & are unremarkable except as noted in HPI and below Physical Exam Vital Signs: BMI result Body Mass Index 28.5 Const General: cooperative, comfortable and no acute distress Nutritional Appearance: average body habitus Orientation/consciousness: patient oriented x3 HEENT Face and sinus: Yes face symmetric Teeth and gingiva: other ([place] score of 3) Eyes Pupils: Equal, round and reactive pupils present Resp Effort & Inspection: normal respiratory effort and able to speak in complete sentences Neuro General: patient oriented x3 and moves all extremities Cranial nerves: Yes CN's II-XII intact bilaterally, Yes Facial sensation intact/muscles of mastication intact, Yes Equal, round and reactive pupils present, Yes Normal accommodation reflex present, Yes Bilaterally intact EOM present, Yes Nystagmus not present, Yes Normal facial strength present, Yes Midline tongue present, Yes Ability to bilaterally rotate head present and Yes Ability to bilaterally elevate shoulders present Gait exam (Neuro): Normal gait present Motor exam (neuro): 5/5 motor strength present throughout, Pronator motor function not present and Normal motor muscle tone present throughout Deep tendon reflexes (DTR's): Right triceps reflex intensity grade: 2+, Left triceps reflex intensity grade: 2+, Rt Biceps (C5, C6): 2+, Left biceps reflex intensity grade: 2+, Right brachioradialis reflex intensity grade: 2+, Left brachioradialis reflex intensity grade: 2+, Right patellar reflex intensity grade: 2+ and Left patellar reflex intensity grade: 2+ Coordination: [id number] test normal Psych Appearance: grossly normal Speech and movement: Normal speech and movement present Affect: normal affect Attitude: cooperative Thought content: Normal thought content present Insight: Good insight present (Psych) Judgement: Good judgement present (Psych) Results Reviewed Results Reviewed: EEG [facility] Apr 16, 2024 - Seizure like activity L. temporal lobe with aura Cologaurd Study Negative findings [facility] Pulmonary nodules RLL - 16mm and 18mm, ? Pheochromocytoma? Endocrine Tumor? Labs A1c, Vitamin d is low, B12 normal, TSH normal Assessment & Plan Assessment & Plan (1) Anxiety: Code(s): F41.9 - Anxiety disorder, unspecified Category: Medical (2) Sleep apnea: Code(s): G47.30 - Sleep apnea, unspecified Category: Medical Qualifiers: Sleep apnea type: unspecified type Qualified Code(s): G47.30 - Sleep apnea, unspecified (3) Seizures: Code(s): R56.9 - Unspecified convulsions Category: Medical (4) Loud snoring: Code(s): R06.83 - Snoring Category: Medical Plan HST - Excessive daytime sleepiness, apneas and snoring. Seizure activity - Lacosamide 200 mg PO BID, per Dr. Cervantes at [facility] A1c - elevated, GLP- 1 agonist, and metformin 1000mg PO BID and daily exercise, f/u with endocrine, as RLL Nodule on CTscan 16mm and 18mm, is it Pheochromocytoma? Labs, per PCP Anxiety- future consideration increase Buproprion, to 10mg BID, give antidepressants 6-12 weeks to work do not discontinue after short period. F/U with Neuro and Sleep medicine in 4 months after consistent use of CPAP if required, call us with any concerns prior to next appointment. Coding Level of Care Code New Pt Level 4 (25940) Diagnoses Anxiety F41.9 Sleep apnea, unspecified type G47.30 Sleep apnea type: unspecified type Seizures R56.9 Loud snoring R06.83 Time Spent (min) 45 Comment Sleep apnea worsening Sleep Questionnaire Difficulty falling asleep: Yes Difficulty staying asleep?: Yes Number of arousals: 2-3X sometimes Snoring: Yes (partner ) Witnessed apneas: No Gasping arousals: No Nocturia: No GERD: Yes Vivid dreams: No Acting out dreams: No Abnormal behavior in sleep: No Abnormal movements in sleep: No Morning headaches: Yes Excessive daytime sleepiness: Yes (2-3 x per week) Daytime naps: Yes (naps 2-3x week) Restless legs: No Hallucinations: No Sleep paralysis: No Drop attacks: No Sleep Study: No CPAP: No
== END 2024-05-19 15:47 | disposition home or self-care (01) ==
PROVIDERS: PCP Family Medicine; Visit Provider Physician Assistant Medical
DX: F41.9 Anxiety disorder, unspecified (principal); G47.30 Sleep apnea, unspecified; R56.9 Unspecified convulsions; R06.83 Snoring
CPT/HCPCS: 99204

== ENCOUNTER → 2024-05-19 14:37 | Outpatient (BNVA) | payer OTHER, SELFPAY | PROVIDERS: PCP Family Medicine; Visit Provider Physician Assistant Medical ==

== ENCOUNTER 2024-05-20 09:29 | Outpatient (AMB) | payer OTHER, SELFPAY ==
--- NOTE | 2024-05-20 10:22 | A.OFFPC_ITS ---
Vital Signs 05/20/24 10:27 Height 6 ft 3 in Weight 229 lb BMI 28.6 BP 108/70 Blood Pressure Location Lt brachial Position Sitting Respiration 14 Pulse 101 H Pulse Source Palpation Temp 97.9 F Temp Source Oral Intake Visit Reasons: He can make an appt. on the Intake Note: f/u mri and neurology report and labs. pt would also like to discuss sleep issues. persistent hic on and off and having sore chest from having the hiccups for prolonged time frame. pt is also having swollen tender glands and making it difficult to swallow Allergies clarithromycin [From BIAXIN] Allergy (Severe, Verified 05/26/24 13:32) ANAPHYLAXIS ENVIRONMENTAL Allergy (Intermediate, Uncoded 05/23/24 14:15) ITCHY EYES RUNNY NOSE Medication List - Last Reconciled 05/20/24 by Reno Vargas MD allopurinol 200 mg (2 x 100 mg) PO DAILY 90 days amlodipine 10 mg PO DAILY 30 days blood sugar diagnostic (FreeStyle Lite Strips) DX: E11.9, test blood sugar once a day, 90 days blood-glucose meter (FreeStyle Lite Meter kit) DX: E11.9, test blood sugar once a day, duration 999 days buspirone 5 mg PO BID 30 days dulaglutide 4.5 mg (0.5 mL) subcut QWEEK 28 days fenofibrate micronized 200 mg PO DAILY 30 days fluticasone propionate 50 mcg/actuation (Flonase Allergy Relief) 1 spray intra nasal Q12H 30 days lacosamide mg PO lancets (FreeStyle Lancets) As directed losartan 50 mg PO DAILY 30 days metformin 1,000 mg PO BIDWMEAL Tobacco use date assessed: 10/29/23 Dental Screening Dental Screen Date: 10/29/23 HPI He can make an appt. on the HPI Details Pt presents to review labwork, additional testing. 16 mm and 8 mm nodules seen incidentally on CTA head/neck and patient also has hyponatremia. Concern for malignancy. Had seen pulmonology 05/03/24. They requested CT/PET to assess extent of disease and to decide biopsy vs surgery. Dedicated CT chest showed approximately 1.3cm and 0.8cm nodules. Reports some lymphadenopathy, submandibular lymph nodes. HPI Comments History of Present Illness Details Documentation assistance for Reno Vargas MD, was provided by Melquiades Goldberg,? Continuity Clerk on 05/20/2024 at 11:10 AM EST. I, Dr. Vargas, have read, observed, and verified documentation. ?? [facility] Medical History (Updated 05/26/24 @ 09:00 by Alejandrina Cook PA-C) Pulmonary nodule 1 cm or greater in diameter Hx of gout Surgical History (Updated 05/26/24 @ 09:00 by Alejandrina Cook PA-C) History of repair of left hip joint History of plastic surgery History of right elbow replacement History of tonsillectomy Family History (Updated 05/23/24 @ 14:16 by Patrick Julian) Paternal Grandmother Breast cancer Brother Brain tumor Maternal Aunt Breast cancer Other Mental health disorder Substance use disorder Social History Household Members: Children Housing: House Alcohol intake: current Alcohol intake frequency: a few times a month Patient Tobacco Use Status: Never used Tobacco e-Cigarette/Vaping Use: Never Used Second Hand Smoke Exposure: No service: No Current occupational status: employed 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 [employer] Current occupational exposures/hazards: No Gender identity: Male Cognitive needs: No Hearing needs: No Vision needs: No (reading glasses) Questionnaire Thrive Questionnaire Date Thrive assessed: 03/21/24 I am a: Patient What is your living situation today?: I have a steady place to live Within the past 12 months, did the food you bought not last and you didn't have the money to get more?: Never true Within the past 12 months, did you worry whether your food would run out before you got money to buy more?: Never true Do you have trouble paying for medicines?: No Do you have trouble getting transportation to medical appointments?: No Do you have trouble paying your heating and electricity bill?: No Do you have trouble taking care of your child, family member or friend?: No Do you have trouble with day-to-day activities such as bathing, preparing meals, shopping, managing finances, etc.?: No Are you currently unemployed and looking for a job?: No Are you interested in more education?: No Please select the resources that you would like help with: None Currently or been in a relationship where the following occur: No concerns reported THRIVE Score: 0 BROCK-7 AMB Questionnaire BROCK-7 Date BROCK - 7 assessed: 11/13/22 Source: Developed by Drs. Clarke Bella, Lily Hale, Rogelio Dunne and colleagues, with an educational chavez from [employer]. Review of Systems Const Denies chills, Reports fatigue, Denies fever(s), Denies headache(s) and Denies weakness ENT Denies dizziness and Denies headache(s) Card Denies dyspnea Resp Denies cough, Denies dyspnea, Denies wheezing and Denies other (shortness of breath) Musc Denies numbness and Denies tingling Neuro Details: Difficulty sleeping Denies dizziness, Denies headache(s), Denies numbness, Denies tingling and Denies weakness Psych Denies anxiety and Denies depression Endo Reports fatigue Aller/Immun Denies wheezing Physical exam (Primary Care) Vital Signs: Last Vital Signs Temp 97.9 F 05/20/24 10:27 Pulse 101 H 05/20/24 10:27 Resp 14 05/20/24 10:27 BP 108/70 05/20/24 10:27 BMI result Body Mass Index 28.6 Tobacco/Smoking Status: Tobacco use Status Tobacco use date assessed 10/29/23 05/20/24 10:32 Patient Tobacco Use Status Never used Tobacco 05/20/24 10:32 e-Cigarette/Vaping Use Never Used 05/20/24 10:32 Thrive Assessment: Date of Thrive Assessment Date Thrive assessed 03/21/24 05/20/24 10:32 Currently or been in a relationship where the following occur: No concerns reported Const General: well developed; No acute distress Nutritional Appearance: well nourished Orientation/consciousness: patient oriented x3 HENMT Other: Severely swollen submandibular lymph nodes bilaterally Head: Yes normocephalic and Yes atraumatic Eyes General: appearance normal, both eyes and all related structures Pupils: Equal, round and reactive pupils present EOM: EOMs intact bilaterally Resp Effort & Inspection: normal respiratory effort Neuro General: patient oriented x3 and gait normal Cranial nerves: Yes Equal, round and reactive pupils present Psych Affect: normal affect Coding Level of Care Code Est Pt Level 3 (21855) Diagnoses Pulmonary nodule 1 cm or greater in diameter R91.1 Seizures R56.9 Fatigue due to sleep pattern disturbance R53.83; G47.9 Lymphadenopathy R59.1 Assessment & Plan Assessment & Plan (1) Pulmonary nodule 1 cm or greater in diameter: Code(s): R91.1 - Solitary pulmonary nodule Category: Medical Plan: Follow-up of patient who was seen due to hospitalization for syncope and found to have pulmonary nodules and abnormal EEG. Also hyponatremia. Initially 16 mm and 8 mm nodules seen incidentally on CTA head/neck, concerning for malignancy. Obtained dedicated CT chest which showed approximately 1.3 cm and 0.8 cm nodules. Patient was referred to pulmonology and concerned for carcinoid. PET scan shows mild uptake in larger nodule. Since my last visit in 04/29, patient was to see his neurologist, Dr Cervantes on May 13 and to have another MRI head but I do not have these notes/reports. (2) Seizures: Code(s): R56.9 - Unspecified convulsions Category: Medical Plan: Followed?by? He?was?given?lacosamide?and?has?had?no?further?seizure?activity He?will?continue?lacosamide Per??his?presentation?with?pulmonary?nodules?and?flushing?and?seizures? could?represent?a?paraneoplastic?process (3) Fatigue due to sleep pattern disturbance: Code(s): R53.83 - Other fatigue; G47.9 - Sleep disorder, unspecified Category: Medical Plan: Significant?stressors?and?difficulty?sleeping. Also?some?concern?for?sleep?apnea?and?patient?has?an?upcoming?test Will?give?him?some?trazodone (4) Lymphadenopathy: Code(s): R59.1 - Generalized enlarged lymph nodes Category: Medical Plan: Patient?with?recently?found?pulmonary?nodules?and?potential?for?a?paraneoplastic ?syndrome,?presents?today?with?severely?swollen?submandibular?lymph?nodes?bilate rally. No Fevers/Chills. I?have?made?a?referral?to?Hematology-Oncology?and?set?this?to Stat. Patient?does?note?some?sw allowing?difficulties?though?no?stridor?or?breathing?problems.??He?will?go?to?th e?emergency?department?if?he?any?stridor?or?breathing?difficulties?or?swallowing ?worsens. Orders: Orders Cortisol, Free 24Hr Urine 05/23/24 R23.2 - Flushing Chromogranin A 05/20/24 R23.2 - Flushing Cortisol Random 05/21/24 R23.2 - Flushing Cortisol Random 05/20/24 R23.2 - Flushing Comprehensive Met. Panel 05/20/24 R23.2 - Flushing Complete Blood Count Auto Diff 05/21/24 Z00.00 - Encounter for general adult medical examination without abnormal findings, R59.1 - Generalized enlarged lymph nodes Referrals Hematology & Oncology Referral R91.1 - Solitary pulmonary nodule, R59.1 - Generalized enlarged lymph nodes Medications: New trazodone 50 mg PO BEDTIME PRN 30 tabs 1RF sleep 30 days
[2024-05-20 10:27] VITALS: BP 108/70; PULSE 101; RESP 14; TEMP 36.6; BMI 28.6
== END 2024-05-20 11:28 | disposition home or self-care (01) ==
PROVIDERS: PCP Family Medicine; Visit Provider Family Medicine
DX: R91.1 Solitary pulmonary nodule (principal); R56.9 Unspecified convulsions; R53.83 Other fatigue; G47.9 Sleep disorder, unspecified; R59.1 Generalized enlarged lymph nodes

== ENCOUNTER → 2024-05-20 09:29 | Outpatient (BNVA) | payer OTHER, SELFPAY | PROVIDERS: PCP Family Medicine; Visit Provider Family Medicine ==

== ENCOUNTER 2024-05-20 11:41 | Outpatient (REF) | payer OTHER, SELFPAY ==
[2024-05-20 14:47] LABS: Alanine Aminotransferase 42 U/L (0-40); Albumin Level 4.6 g/dL (3.5-5.0); Alkaline Phosphatase 44 U/L (39-117); Anion Gap 13 (12-20); Aspartate Amino Transferase 21 U/L (5-37); Bilirubin Total 0.6 mg/dL (0.0-1.0); Blood Urea Nitrogen 9 mg/dL (9-16); Carbon Dioxide 23 mmol/L (22-29); Chloride 97 mmol/L (96-108); Estimated Glomerular Filt Rate > 60; Glucose Random 122 mg/dL (60-115); Potassium 4.4 mmol/L (3.3-5.1); Sodium 129 mmol/L (135-145); Total Protein 7.2 g/dL (6.5-8.0)
[2024-05-20 14:55] LABS: Cortisol Random 16.4 ug/dL
[2024-05-20 15:57] LABS: Osmolality, Serum 275 mosm/kg (281-305)
[2024-05-28 21:13] LABS: Chromogranin A 84 ng/mL (ADULTS: <311)
== END 2024-05-20 11:42 | disposition home or self-care (01) ==
LOC: HO.WFDLDS 11:41
PROVIDERS: Visit Provider Family Medicine
DX: R23.2 Flushing (principal); R91.8 Other nonspecific abnormal finding of lung field
CPT/HCPCS: 36415; 80053; 82533; 83930; 86316

== ENCOUNTER 2024-05-21 07:39 | Outpatient (REF) | payer OTHER, SELFPAY ==
[2024-05-21 08:03] LABS: MANUAL DIFF FLAG NO
[2024-05-21 08:17] LABS: Basophils Absolute Auto 0.1 X10*3/uL (0.0-0.2); Basophils Percent Auto 1.1 % (0-2); Eosinophils Absolute Auto 0.5 X10*3/uL (0.0-0.4); Eosinophils Percent Auto 5.6 % (0-4); Hematocrit 40.3 % (42.0-52.0); Hemoglobin 14.9 g/dl (14.0-18.0); Imm Gran Abs Auto 0.04 X10*3/uL (0.00-0.03); Imm Gran Pct Auto 0.5 % (0.0-0.4); Lymphocytes Absolute Auto 1.3 X10*3/uL (1.2-4.9); Lymphocytes Percent Auto 16.4 % (20-40); Mean Corpuscular Hemoglobin 32.7 pg (27.0-33.0); Mean Corpuscular Volume 88.6 fL (80.0-98.0); Mean Platelet Volume 9.2 fL (9.4-12.4); Monocytes Absolute Auto 0.8 X10*3/uL (0.1-1.2); Neutrophils Absolute Auto 5.4 x10*3/uL (2.0-8.3); Neutrophils Percent Auto 66.4 % (45-73); Platelet Count 341 X10*3/uL (160-400); Red Blood Count 4.55 X10*6/uL (4.60-5.80); Red Cell Distribution Width 11.4 % (11.0-16.0); White Blood Count 8.2 X10*3/uL (4.8-10.8)
[2024-05-24 19:23] LABS: Metanephrine, Free 33 pg/mL (<=57); Normetanephrines, Free 80 pg/mL (<=148); Total Metanephrine, Free 113 pg/mL (<=205)
== END 2024-05-21 07:40 | disposition home or self-care (01) ==
LOC: HO.LAB 07:39
PROVIDERS: PCP Family Medicine; Visit Provider Family Medicine
DX: Z00.00 Encounter for general adult medical examination without abnormal findings (principal); E87.1 Hypo-osmolality and hyponatremia; R23.2 Flushing; R59.1 Generalized enlarged lymph nodes
CPT/HCPCS: 36415; 83835; 85025

== ENCOUNTER 2024-05-23 07:40 | Outpatient (REF) | payer OTHER, SELFPAY ==
[2024-05-31 22:28] LABS: Cortisol Free, 24 Hr Urine 14.7 mcg/24 h (4.0-50.0); Creatinine, 24 Hr Urine 1.33 g/24 h (0.50-2.15); Total Volume, 24 Hr Urine 1550 mL
== END 2024-05-23 07:41 | disposition home or self-care (01) ==
LOC: HO.LNP 07:40
PROVIDERS: Visit Provider Family Medicine
DX: R23.2 Flushing (principal)
CPT/HCPCS: 82530

== ENCOUNTER → 2024-05-23 10:05 | Outpatient (BNV) | payer OTHER, SELFPAY | PROVIDERS: PCP Family Medicine; Visit Provider Internal Medicine | DX: R91.8 Other nonspecific abnormal finding of lung field (principal); R59.0 Localized enlarged lymph nodes; E87.1 Hypo-osmolality and hyponatremia | CPT/HCPCS: 99204 ==

== ENCOUNTER 2024-05-26 13:27 | Outpatient (AMB) | payer OTHER, SELFPAY ==
--- NOTE | 2024-05-26 13:32 | MHC.PC.OV ---
Vital Signs 05/26/24 13:33 Height 6 ft 3 in Weight 234 lb 8 oz BMI 29.3 BP 120/62 Blood Pressure Location Rt brachial Position Sitting Respiration 16 Pulse 83 Pulse Source Pulse Oximeter Temp 97.5 F Temp Source Oral Pulse Oximetry (%) 97 Oxygen Delivery Method Room Air Intake Visit Reasons: f/u chronic conditions Intake Note: f/u for chronic conditions Allergies clarithromycin [From BIAXIN] Allergy (Severe, Verified 05/26/24 13:32) ANAPHYLAXIS ENVIRONMENTAL Allergy (Intermediate, Uncoded 05/23/24 14:15) ITCHY EYES RUNNY NOSE Tobacco use date assessed: 10/29/23 Dental Screening Dental Screen Date: 10/29/23 HPI f/u chronic conditions HPI Details Patient?returns?to?follow-up after?seeing?Hematology-Oncology?urgently?last?Thursday. Cervical?lymphadenopathy?has?essentially?resolved. Has?upcoming?appointment?with?pulmonology?for?lung?nodules. Still?having?difficulty?with?sleeping PFSH Medical History (Updated 05/26/24 @ 09:00 by Alejandrina Cook PA-C) Pulmonary nodule 1 cm or greater in diameter Hx of gout Surgical History (Updated 05/26/24 @ 09:00 by Alejandrina Cook PA-C) History of repair of left hip joint History of plastic surgery History of right elbow replacement History of tonsillectomy Family History (Updated 05/23/24 @ 14:16 by Patrick Julian) Paternal Grandmother Breast cancer Brother Brain tumor Maternal Aunt Breast cancer Other Mental health disorder Substance use disorder Social History Household Members: Children Housing: House Alcohol intake: current Alcohol intake frequency: a few times a month Patient Tobacco Use Status: Never used Tobacco e-Cigarette/Vaping Use: Never Used Second Hand Smoke Exposure: No service: No Current occupational status: employed 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 1. Little interest or pleasure in doing things: not at all 2. Feeling down, depressed, or hopeless: not at all 3. Trouble falling or staying asleep, or sleeping too much: more than half the days 4. Feeling tired or having little energy: more than half the days 5. Poor appetite or overeating: not at all 6. Feeling bad about yourself - or that you are a failure or have let yourself or your family down: not at all 7. Trouble concentrating on things, such as reading the newspaper or watching television: not at all 8. Moving or speaking so slowly that other people could have noticed. Or the opposite - being so fidgety or restless that you have been moving around a lot more than usual: not at all 9. Thoughts that you would be better off or of hurting yourself in some way: not at all Total score: 4 Source: Developed by Drs. Clarke Bella, Lily Hale, Rogelio Dunne and colleagues, with an educational chavez from [employer]. Thrive Questionnaire Date Thrive assessed: 03/21/24 I am a: Patient What is your living situation today?: I have a steady place to live Within the past 12 months, did the food you bought not last and you didn't have the money to get more?: Never true Within the past 12 months, did you worry whether your food would run out before you got money to buy more?: Never true Do you have trouble paying for medicines?: No Do you have trouble getting transportation to medical appointments?: No Do you have trouble paying your heating and electricity bill?: No Do you have trouble taking care of your child, family member or friend?: No Do you have trouble with day-to-day activities such as bathing, preparing meals, shopping, managing finances, etc.?: No Are you currently unemployed and looking for a job?: No Are you interested in more education?: No Please select the resources that you would like help with: None Currently or been in a relationship where the following occur: No concerns reported THRIVE Score: 0 AUDIT C Alcohol Use Questionnaire (AUDIT-C) 1. How often do you have a drink containing alcohol?: 2-4 times a month 2. How many drinks containing alcohol do you have on a typical day when you are drinking?: 1 or 2 3. How often do you have six or more drinks on one occasion?: Never Total Score: 2 BROCK-7 AMB Questionnaire BROCK-7 Date BROCK - 7 assessed: 11/13/22 Feeling nervous, anxious, or on edge: 0 = Not at all Not being able to stop or control worryin = Not at all Worrying too much about different things: 0 = Not at all Trouble relaxin = Not at all Being so restless that it is hard to sit still: 0 = Not at all Becoming easily annoyed or irritable: 0 = Not at all Feeling afraid as if something awful might happen: 0 = Not at all Total BROCK-7 score (0-4 normal; 5-9 mild; 10-14 moderate; 15-21 severe): 0 Source: Developed by Drs. Clarke Bella, Lily Hale, Rogelio Dunne and colleagues, with an educational chavez from [employer]. Review of Systems Const Denies chills, Denies fatigue, Denies fever(s), Denies headache(s) and Denies weakness ENT Denies dizziness and Denies headache(s) Card Denies dyspnea Resp Denies cough, Denies dyspnea, Denies wheezing and Denies other ( shortness of breath) Musc Denies numbness and Denies tingling Neuro Denies dizziness, Denies headache(s), Denies numbness, Denies tingling, Denies paresthesias and Denies weakness Psych Denies anxiety and Denies depression Endo Denies fatigue Aller/Immun Denies wheezing Physical exam (Primary Care) Vital Signs: Last Vital Signs Temp 97.5 F 05/26/24 13:33 Pulse 83 05/26/24 13:33 Resp 16 05/26/24 13:33 BP 120/62 05/26/24 13:33 Pulse Ox 97 05/26/24 13:33 Oxygen Delivery Method Room Air 05/26/24 13:33 BMI result Body Mass Index 29.3 Tobacco/Smoking Status: Tobacco use Status Tobacco use date assessed 10/29/23 05/26/24 13:38 Patient Tobacco Use Status Never used Tobacco 05/26/24 13:38 e-Cigarette/Vaping Use Never Used 05/26/24 13:38 PHQ-9: PHQ-9 Score PHQ-9: Total score 4 05/26/24 13:38 Thrive Assessment: Date of Thrive Assessment Date Thrive assessed 03/21/24 05/26/24 13:38 Currently or been in a relationship where the following occur: No concerns reported Const General: no acute distress and well developed Nutritional Appearance: well nourished Orientation/consciousness: patient oriented x3 HENMT Other: Lymphadenopathy?almost?fully?resolved Head: Yes normocephalic and Yes atraumatic Eyes General: appearance normal, both eyes and all related structures Pupils: Equal, round and reactive pupils present EOM: EOMs intact bilaterally Resp Effort & Inspection: normal respiratory effort Auscultation: clear to auscultation bilaterally Cardio Rate: regular rate Rhythm: regular rhythm Heart sounds: S1 normal heart sound present, S2 normal heart sound present, no gallops, no murmurs and no rubs Neuro General: patient oriented x3 and gait normal Cranial nerves: Yes Equal, round and reactive pupils present Psych Affect: normal affect Coding Level of Care Code Est Pt Level 4 (42216) Diagnoses Pulmonary nodule 1 cm or greater in diameter R91.1 Diabetes E11.9 Hyponatremia E87.1 Seizures R56.9 Assessment & Plan Assessment & Plan (1) Pulmonary nodule 1 cm or greater in diameter: Code(s): R91.1 - Solitary pulmonary nodule Category: Medical (2) Diabetes: Code(s): E11.9 - Type 2 diabetes mellitus without complications Category: Medical (3) Hyponatremia: Code(s): E87.1 - Hypo-osmolality and hyponatremia Category: Medical (4) Seizures: Code(s): R56.9 - Unspecified convulsions Category: Medical Plan Patient?returns?to?follow-up after?seeing?Hematology-Oncology?urgently?last?Thursday. Had?seen?patient?last?week. Had?recently?discovered large?pulmonary?nodules?with mild?FDG?uptake?in?larger?nodule?and?at?patient's?visit?that?day?he?had?significantly?enlarged?cervical?lymph?nodes.??Had?sent?patient?to?Hematology-Oncology?for?concerns?of lung?neoplasm?with paraneoplastic process. By?the time?the?patient?had?seen?Hematology-Oncology,?his?neck?was?significantly?improved. She?reviewed?his?PET?scan?and?felt?that?his?overall?presentation?was?not?that?of?any?acute/urgent?oncologic?process. Today,?patient?is?lymph?nodes?are?still?further?improved. ?Likely?viral?or?inflammatory?process?which?is?already?resolving. Patient?has?a?follow-up?telemedicine?appointment?with?pulmonology?tomorrow?regarding?the?nodules. Some?concern?for?carcinoid?tumors. Patient?also?has?mild?hyponatremia?and?hypoosmolality?though?these?are?fairly?stable. Awaiting?lab?work?for?cortisol?levels. Hemoglobin?A1c?had?been?high?a?month?ago?but?we?have?adjusted?his?medications?and?blood?sugars?are?improving?at?home.?? I?doubt?this?is?the?underlying?cause?of?his?low?sodium?levels?though?may?be?contributing?as?he?says?he?is?always?thirsty?and?drinking?lots?water.??Also?has?been?very?consistent?and?avoiding?salt/sodium. He?had?also?had?complaints?of?flushing.??He?had?also?had?seizures?and?had?seen?neurology. Had?referred?him?endocrinology.??He?is?awaiting?scheduling. Still?having?difficulties?sleeping. Tried?trazodone?without?any?help. He?will?discontinue?this?and?he?can?try?zolpidem. Orders: Referrals Endocrinology Referral E11.65 - Type 2 diabetes mellitus with hyperglycemia, E87.1 - Hypo-osmolality and hyponatremia Medications: New zolpidem 10 mg PO BEDTIME 30 days PRN 12 tabs 0RF sleep Changed From amlodipine 10 mg PO DAILY 30 days 30 tabs 1RF To amlodipine 10 mg PO DAILY 90 days 90 tabs 3RF Refilled losartan 50 mg PO DAILY 90 days 90 tabs 3RF
[2024-05-26 13:33] VITALS: BP 120/62; PULSE 83; RESP 16; TEMP 36.4; O2SAT 97; BMI 29.3
== END 2024-05-26 14:19 | disposition home or self-care (01) ==
PROVIDERS: PCP Family Medicine; Visit Provider Family Medicine
DX: R91.1 Solitary pulmonary nodule (principal); E11.9 Type 2 diabetes mellitus without complications; E87.1 Hypo-osmolality and hyponatremia; R56.9 Unspecified convulsions

== ENCOUNTER → 2024-06-10 07:41 | Outpatient (BNVA) | payer OTHER, SELFPAY | PROVIDERS: PCP Family Medicine; Visit Provider Physician Assistant | DX: E11.9 Type 2 diabetes mellitus without complications (principal); E87.1 Hypo-osmolality and hyponatremia; E78.1 Pure hyperglyceridemia; Z79.84 Long term (current) use of oral hypoglycemic drugs | CPT/HCPCS: 82947; 83036 ==

== ENCOUNTER 2024-06-10 08:34 | Outpatient (AMB) | payer OTHER, SELFPAY ==
--- NOTE | 2024-06-10 09:04 | MHC.OFFVIS ---
Vital Signs 06/10/24 09:05 Height 6 ft 3 in Weight 227 lb BMI 28.4 BP 134/72 Blood Pressure Location Lt brachial Position Sitting Pulse 87 Pulse Source Pulse Oximeter Intake Visit Reasons: T2DM,Hypo-osmolality and hyponatremia Intake Note: Patient present today for Hypo-osmolality and hyponatremia. 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 Required: No Accompanied by: Self / Same As Patient Allergies clarithromycin [From BIAXIN] Allergy (Severe, Verified 06/10/24 07:50) ANAPHYLAXIS ENVIRONMENTAL Allergy (Intermediate, Uncoded 06/10/24 07:50) ITCHY EYES RUNNY NOSE Medication List - Last Reconciled 06/10/24 by Zulema Khanna MD allopurinol 200 mg (2 x 100 mg) PO DAILY 90 days amlodipine 10 mg PO DAILY 90 days blood sugar diagnostic (FreeStyle Lite Strips) DX: E11.9, test blood sugar once a day, 90 days blood-glucose meter (FreeStyle Lite Meter kit) DX: E11.9, test blood sugar once a day, duration 999 days buspirone 5 mg PO BID 30 days dulaglutide 4.5 mg (0.5 mL) subcut QWEEK 28 days fenofibrate micronized 200 mg PO DAILY 30 days fluticasone propionate 50 mcg/actuation (Flonase Allergy Relief) 1 spray intranasal Q12H 30 days lacosamide 200 mg PO DAILY lancets (FreeStyle Lancets) As directed losartan 50 mg PO DAILY 90 days metformin 1,000 mg PO BIDWMEAL trazodone 50 mg PO BEDTIME PRN 30 days zolpidem 10 mg PO BEDTIME PRN 30 days HPI Comments Details: 54-year-old male coming in today for initial evaluation of type 2 diabetes mellitus and hyponatremia. Type 2 DM History of diabetes Diagnosed with Type 2 DM 2022 diagnosed on blood work Prior therapy: Current regimen: Turlicity 4.5 mg weekly (last increased summer 2023) Metformin 1000 BID Denies any symptoms of hyperglycemia including polyphagia, polyuria, polydipsia. Denies any hypoglycemic symptoms. SMBG's Dexcom applied today, current reading 115 mg /dl Checks fingersticks fasting only daily Numbers between 95 and 110 mg/dl, a few 120s that the highest Didnt bring meter today No hypoglycemia Vaccines: Not vaccinated for flu this season Vaccinated for covid 19 initially in 2020, no boosters after Complications Eye exam: Last eye exam was April 2024, no retinpathy Neuropathy: denies neuropathy symptoms Kidney disease: no kidney disease Macrovascular complications: No history of macrovascular complications. 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 Diagnosed withe seizure disorder in March 2024 Weight lost 30 lbs since summer 2023 A1c 6.9 06/10/24 down from 8.6 % in March 2024 Hyponatremia Reports drinking 8 to 12 ounces water bottles 7 bottles daily This amounts to 2 L almost daily Plus drink 2 coffees Sometimes also a gatorside No SOB , No leg swelling No kidney disease No liver disease Labs Noted to have low sodium levels since winter 2023, sodium of 132, TSH 1.47 , subsequently labs Apr 2024 sodium ranging from 129 to 133, labs 05/20/24 NA 129, osmolality 275, 11 AM cortisol 16.4 whihc is normal . He has The CT scan of the neck March 2024 demonstrated part of the lung parenchyma. It demonstrated a 17 mm right sided nodular density along with an 8 mm nodule adjacent to it. , seeing pulmonology had PET scan 05/12/23, nodules need follow up imaging, patient considering biopsy/ resection, waiting for referral with [facility] surgery department PET-CT performed 05/12/2024 at [facility] demonstrated 11 x 12 mm right pulmonary nodule demonstrating mild FDG activity, no FDG avid lymphadenopathy. He has follow up with investment fund manager Dr. Velazquez for this. He is not a smoker and he does not have any pulmonary symptoms. He was also evalated by oncology Dr. Card for submandibular lymphadenopathy which per her assesment has decreased and is no longer tender, here tender adenopathy a week to 10 days ago. It seems to be resolving spontaneously. Recently performed PET-CT demonstrated cervical lymph nodes measuring 1.4-2.3 cm without any FDG activity. This is probably inflammatory or infectious. Blood work shows hyponatremia which is stable. Patient was advised to not drink as much water, he appears to be drinking almost a gallon a day because of increased dryness of mouth. He was advised to follow up with his PCP for further workup of this as well. Physical exam General: sitting comfortably in no acute distress HEENT: normocephalic/atraumatic, EOM intact, moist oral mucosa Neck: supple, symmetrical, no thyromegaly , no dorsocervical or supraclavicular fat pads Cardiac: normal heart sounds Pulm: normal breath sounds B/L, no added breath sounds Abd: not distended, no tenderness Extremities: no edema, no signs of myxedema Neuro: AAO x3, Speech: normal, no facial droop, moving all 4 extremities Skin: no rash Foot exam: intact sensation to monofilament, intact pulses, intact vibration Laboratory Tests 09/25/18 06/09/19 10/29/21 01:42 10:45 09:46 Plt Count Sodium 138 140 Creatinine Estimated GFR Glucose (Clinic) Random Glucose Hgb A1c (Clinic) Osmolality AST ALT Alkaline Phosphatase Albumin Triglycerides Cholesterol LDL Cholesterol, Calc HDL Cholesterol Vitamin B12 TSH 2.18 Random Cortisol Plasma Free Metaneph Plasma Free Normeta Plas Total Metaneph Urine Total Volume Urine Creatinine Ur Creatinine 24 Hour Urine Microalbumin Microalb/Creat Ratio Ur Free Cortisol 24 Hr 06/12/22 08/14/22 09/29/22 09:25 09:50 08:05 Plt Count Sodium 136 133 L 137 Creatinine Estimated GFR Glucose (Clinic) Random Glucose Hgb A1c (Clinic) Osmolality AST ALT Alkaline Phosphatase Albumin Triglycerides Cholesterol LDL Cholesterol, Calc HDL Cholesterol Vitamin B12 TSH Random Cortisol Plasma Free Metaneph Plasma Free Normeta Plas Total Metaneph Urine Total Volume Urine Creatinine Ur Creatinine 24 Hour Urine Microalbumin Microalb/Creat Ratio Ur Free Cortisol 24 Hr 10/01/22 02/13/23 05/15/23 14:47 09:35 08:40 Plt Count Sodium Creatinine Estimated GFR Glucose (Clinic) Random Glucose Hgb A1c (Clinic) 10.7 H Osmolality AST ALT Alkaline Phosphatase Albumin Triglycerides Cholesterol LDL Cholesterol, Calc HDL Cholesterol Vitamin B12 TSH 2.13 Random Cortisol Plasma Free Metaneph Plasma Free Normeta Plas Total Metaneph Urine Total Volume Urine Creatinine 118.49 Ur Creatinine 24 Hour Urine Microalbumin 6.0 Microalb/Creat Ratio 5.0 Ur Free Cortisol 24 Hr 05/15/23 05/21/23 09/02/23 Unknown 08:39 08:30 Plt Count Sodium 139 138 Creatinine Estimated GFR Glucose (Clinic) Random Glucose Hgb A1c (Clinic) 7.4 H Osmolality AST ALT Alkaline Phosphatase Albumin Triglycerides 459 H 481 H Cholesterol LDL Cholesterol, Calc HDL Cholesterol Vitamin B12 TSH Random Cortisol Plasma Free Metaneph Plasma Free Normeta Plas Total Metaneph Urine Total Volume Urine Creatinine Ur Creatinine 24 Hour Urine Microalbumin Microalb/Creat Ratio Ur Free Cortisol 24 Hr 03/22/24 03/28/24 04/13/24 08:08 16:56 15:43 Plt Count Sodium 135 132 L Creatinine Estimated GFR Glucose (Clinic) Random Glucose Hgb A1c (Clinic) 8.6 H Osmolality AST ALT Alkaline Phosphatase Albumin 4.6 Triglycerides 155 H Cholesterol 134 LDL Cholesterol, Calc 68 HDL Cholesterol 35 L Vitamin B12 312 TSH 1.47 Random Cortisol Plasma Free Metaneph Plasma Free Normeta Plas Total Metaneph Urine Total Volume Urine Creatinine Ur Creatinine 24 Hour Urine Microalbumin Microalb/Creat Ratio Ur Free Cortisol 24 Hr 04/28/24 04/29/24 05/20/24 10:45 15:14 11:46 Plt Count Sodium 133 L 134 L 129 L Creatinine 0.85 Estimated GFR > 60 Glucose (Clinic) Random Glucose 122 H Hgb A1c (Clinic) Osmolality 275 L AST 21 ALT 42 H Alkaline Phosphatase 44 Albumin Triglycerides Cholesterol LDL Cholesterol, Calc HDL Cholesterol Vitamin B12 TSH Random Cortisol 16.4 Plasma Free Metaneph Plasma Free Normeta Plas Total Metaneph Urine Total Volume Urine Creatinine Ur Creatinine 24 Hour Urine Microalbumin Microalb/Creat Ratio Ur Free Cortisol 24 Hr 05/21/24 05/23/24 06/10/24 08:00 07:00 07:53 Plt Count 341 Sodium Creatinine Estimated GFR Glucose (Clinic) 104 Random Glucose Hgb A1c (Clinic) Osmolality AST ALT Alkaline Phosphatase Albumin Triglycerides Cholesterol LDL Cholesterol, Calc HDL Cholesterol Vitamin B12 TSH Random Cortisol Plasma Free Metaneph 33 Plasma Free Normeta 80 Plas Total Metaneph 113 Urine Total Volume 1550 Urine Creatinine Ur Creatinine 24 Hour 1.33 Urine Microalbumin Microalb/Creat Ratio Ur Free Cortisol 24 Hr 14.7 06/10/24 08:00 Plt Count Sodium Creatinine Estimated GFR Glucose (Clinic) Random Glucose Hgb A1c (Clinic) 6.9 H Osmolality AST ALT Alkaline Phosphatase Albumin Triglycerides Cholesterol LDL Cholesterol, Calc HDL Cholesterol Vitamin B12 TSH Random Cortisol Plasma Free Metaneph Plasma Free Normeta Plas Total Metaneph Urine Total Volume Urine Creatinine Ur Creatinine 24 Hour Urine Microalbumin Microalb/Creat Ratio Ur Free Cortisol 24 Hr [facility] Medical History (Updated 06/10/24 @ 10:20 by Zulema Khanna MD) Hyperlipidemia Type 2 diabetes mellitus Pulmonary nodule 1 cm or greater in diameter Hx of gout Surgical History History of repair of left hip joint History of plastic surgery History of right elbow replacement History of tonsillectomy Family History Paternal Grandmother Breast cancer Brother Brain tumor Maternal Aunt Breast cancer Other Mental health disorder Substance use disorder Social History Household Members: Children Housing: House Alcohol intake: current Alcohol intake frequency: a few times a month Patient Tobacco Use Status: Never used Tobacco e-Cigarette/Vaping Use: Never Used Second Hand Smoke Exposure: No service: No Current occupational status: employed 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 [employer] Current occupational exposures/hazards: No Gender identity: Male Cognitive needs: No Hearing needs: No Vision needs: No (reading glasses) Physical Exam Vital Signs: Last Vital Signs Pulse 87 06/10/24 09:05 BP 134/72 06/10/24 09:05 BMI result Body Mass Index 28.4 Results AMB Hemoglobin A1c AMB Hemoglobin A1c 6.9 % Last Edit by ROMA Solano on 06/10/24 08:14 Assessment & Plan Assessment & Plan (1) Hyponatremia: Code(s): E87.1 - Hypo-osmolality and hyponatremia Category: Medical Plan: Labs Noted to have low sodium levels since winter 2023, sodium of 132, TSH 1.47 , subsequently labs Apr 2024 sodium ranging from 129 to 133, labs 05/20/24 NA 129, osmolality 275, 11 AM [facility] . He is euvolemic on my exam today. No history of congestive heart failure, no history of liver disease, he is not on any diuretics. Does not look hypovolemic or hypervolemic. I will recheck his TSH once more, however TSH from 2023 was normal. His 11:00 cortisol is also within good range, he has lost weight 30 lb but that is likely because of Trulicity. No lightheadedness or dizziness currently. I do not suspect adrenal insufficiency. He has good blood pressure numbers. But we will repeat an a.m. cortisol, acth to reestablish his baseline. No need for cosyntropin stimulation testing for now. He does not have any history of regular steroid use. That leaves SIADH for the other differential of euvolemic hyponatremia. We will evaluate him with urine and serum osmolality. Based on history he seems to be drinking at least 2.1 L of water daily. In addition to that he has some other beverages. This could be dilutional hyponatremia. I have asked him to reduce his water intake to drinking to thirst only and limiting to 1.5 L a day. After doing this for 4 days he is going to be repeating labs with both electrolytes serum and urine. My differentials are either hypervolemic hyponatremia due to increased water intake or possibly SIADH. He does have pulmonary nodules that are being evaluated currently and he is following with pulmonology. Could possibly be a paraneoplastic syndrome in that case. Plan: -ordered serum sodium, serum osmolality, urine sodium, urine osmolality to be done in 4 days after limiting water intake to drink to thirst and no more than 1.5 L a day -ordered a.m. cortisol, DHEA-S, acth, TSH with reflex T4, BMP -follow up in 2 weeks to discuss results (2) Type 2 diabetes mellitus: Code(s): E11.9 - Type 2 diabetes mellitus without complications Category: Medical Qualifiers: Diabetes mellitus alf insulin use: without alf use Diabetes mellitus complication status: without complication Qualified Code(s): E11.9 - Type 2 diabetes mellitus without complications Plan: 54-year-old male coming in today to establish care for both hyponatremia and type 2 diabetes mellitus. Type 2 diabetes mellitus diagnosed in 2023, without long-term insulin use, without complications. His A1c today 6.9% which has come down from 8.6% in April 2024. In April 2024 he was in the hospital and was acutely sick as well. Currently he is on Trulicity 4.5 mg weekly which was increased about 6 months ago. He is also on metformin 1000 b.i.d.. He has lost 30 lb since summer 2023. He is doing well in terms of diet and exercise. Dexcom was applied today another sample was given so we will have data for the next month. We will see him back in 2 weeks to see how his sugars are doing but overall he checks his fasting blood sugars daily and those have been within target range mostly. Plan: -continue Trulicity 4.5 mg weekly -continue metformin 1000 b.i.d. -start taking vitamin B12 500 or 1000 mcg daily as vitamin B12 was on the lower side -we will order repeat urine microalbumin levels as those are from 2022. -encouraged 150 minutes of exercise per week -up-to-date on eye visit, no retinopathy -foot exam done today was unremarkable (3) Hyperlipidemia: Code(s): E78.5 - Hyperlipidemia, unspecified Category: Medical Qualifiers: Hyperlipidemia type: pure hypertriglyceridemia Qualified Code(s): E78.1 - Pure hyperglyceridemia Plan: not on a statin, he had elevated TGL levels August 2023 in 481 now down to 110 from 02/2024 on fenofibrate 200 mcg daily, LDL 68 mg/dl February 2024 Continue fenofibrate. Plan I spent 60 minutes in reviewing the record, seeing the patient and documenting in the medical record. Orders: Orders Cortisol Random Today E87.1 - Hypo-osmolality and hyponatremia Basic Metabolic Panel Today E87.1 - Hypo-osmolality and hyponatremia Sodium Urine Random Today E87.1 - Hypo-osmolality and hyponatremia TSH reflex Free T4 Today E87.1 - Hypo-osmolality and hyponatremia Microalbumin, Random (w Creat) Today E11.65 - Type 2 diabetes mellitus with hyperglycemia Adrenocorticotropic Hormone Today E87.1 - Hypo-osmolality and hyponatremia DHEA Sulfate Today E87.1 - Hypo-osmolality and hyponatremia Osmolality Urine Today E87.1 - Hypo-osmolality and hyponatremia Osmolality, Serum Today E87.1 - Hypo-osmolality and hyponatremia Patient Instructions: For diabetes Continue Trulicity and Metformin as it is Start taking vitamin B 12 500 to 1000 mcg daily, you can buy this over the counter For sodium Cut back on water intake to no more than 1.5 L , but mostly try to drink to thirst Do labs with blodo work and urine test in 4 days Follow up in 2 weeks to discuss results Coding Level of Care Code New Pt Level 5 (72527) Diagnoses Hyponatremia E87.1 Type 2 diabetes mellitus without complication, without long-term current use of insulin E11.9 Diabetes mellitus chief of production insulin use: without chief of production use Diabetes mellitus complication status: without complication Pure hypertriglyceridemia E78.1 Hyperlipidemia type: pure hypertriglyceridemia Time Spent (min) 60
[2024-06-10 09:05] VITALS: BP 134/72; PULSE 87; BMI 28.4
== END 2024-06-10 10:16 | disposition home or self-care (01) ==
PROVIDERS: PCP Family Medicine; Visit Provider Student in an Organized Health Care Education/Training Program
DX: E11.9 Type 2 diabetes mellitus without complications (principal); E87.1 Hypo-osmolality and hyponatremia; E78.1 Pure hyperglyceridemia
CPT/HCPCS: 99205

== ENCOUNTER 2024-06-14 08:38 | Outpatient (REF) | payer OTHER, SELFPAY ==
[2024-06-14 10:04] LABS: Anion Gap 10 (12-20); Blood Urea Nitrogen 10 mg/dL (9-16); Calcium 9.6 mg/dL (8.4-10.2); Carbon Dioxide 25 mmol/L (22-29); Chloride 101 mmol/L (96-108); Estimated Glomerular Filt Rate > 60; Glucose Random 128 mg/dL (60-115); Potassium 4.1 mmol/L (3.3-5.1); Sodium 132 mmol/L (135-145)
[2024-06-14 10:09] LABS: TSH reflex Free T4 1.21 uIU/mL (0.32-4.0)
[2024-06-14 10:13] LABS: Cortisol Random 15.4 ug/dL
[2024-06-14 10:18] LABS: Osmolality, Serum 283 mosm/kg (281-305)
[2024-06-14 10:55] LABS: Microalbumin Urine < 5.0 mg/L
[2024-06-14 11:28] LABS: Creatinine Urine 104.49 mg/dL
[2024-06-14 11:32] LABS: Osmolality Urine 528 mosm/kg (373-1093)
[2024-06-15 07:25] LABS: DHEA Sulfate 84 mcg/dL (32-279)
[2024-06-18 16:24] LABS: Adrenocorticotropic Hormone 36 pg/mL (6-50)
== END 2024-06-14 08:39 | disposition home or self-care (01) ==
LOC: HO.LAB 08:38
PROVIDERS: PCP Family Medicine; Visit Provider Student in an Organized Health Care Education/Training Program
DX: R23.2 Flushing (principal); E87.1 Hypo-osmolality and hyponatremia; E11.65 Type 2 diabetes mellitus with hyperglycemia
CPT/HCPCS: 36415; 80048; 82024; 82043; 82533; 82570; 82627; 83930; 83935; 84300; 84443

== ENCOUNTER 2024-06-15 09:25 | Outpatient (AMB) | payer OTHER, SELFPAY ==
[2024-06-15 09:32] VITALS: BP 112/64; PULSE 99; O2SAT 99; BMI 28.1
--- NOTE | 2024-06-15 09:32 | MHC.OFFVIS ---
Vital Signs 06/15/24 09:32 Height 6 ft 3 in Weight 224 lb 13.944 oz BMI 28.1 BP 112/64 Blood Pressure Location Lt brachial Position Sitting Pulse 99 Pulse Source Pulse Oximeter Pulse Oximetry (%) 99 Oxygen Delivery Method Room Air Intake Visit Reasons: Pulmonary Nodules/PFT & PET Follow Up Allergies clarithromycin [From BIAXIN] Allergy (Severe, Verified 06/15/24 09:36) ANAPHYLAXIS ENVIRONMENTAL Allergy (Intermediate, Uncoded 06/15/24 09:36) ITCHY EYES RUNNY NOSE HPI Comments Details: The patient is a 54-year-old gentleman nonsmoker who apparently was in her usual state health until back in March he started developing neurological symptoms. He was brought to the [facility] where he underwent a CT scan of the head and neck. The CT scan of the neck demonstrated part of the lung parenchyma. It demonstrated a 17 mm right sided nodular density along with an 8 mm nodule adjacent to it. I did personally reviewed the images. The nodules were both smooth circumferential but concerning size. Very limited as far as the lung tissue can not really appreciate the mediastinum clearly all the rest of the lower lung zones. The patient was then referred to Cardiology. He is having a full cardiac workup and ultimately diagnosed with seizures. He did have an MRI is going to be following with Neurology as well. For now the patient denies any respiratory complaints. Denies any shortness breath or cough. 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 Based on the gravity of the nodular densities I do believe a PET scan will be helpful to further delineate this nodule and to help with management. 06/15/2024 the patient is here for a pulmonary follow-up visit. Overall the patient has been doing well from a respiratory status. He denies any chest discomfort. He did undergo his PET scan recently. We did review together. He did bring his significant other with him. It appears that the larger nodule measuring around 12-14 mm in size had an FDG 1.5. His other nodular density measuring around 8 mm in size had an FDG also around 1. he had no significant lymphadenopathy. Otherwise explained to him that the PET scan was reassuring as far as demonstrating only very minimal FDG activity or metabolic activity. Explained to him that these nodular densities are likely benign processes shows such a hamartoma although cars the differential. Also explained to them that even benign things can increase the size we did talk about 2 options; 1 option would be to refer him to thoracic surgery to see about resection of these nodular densities due to their size and concerns of growth, Versus repeating a CT scan in 3 months time. The patient is very concerned about the nodular densities and he would like to just to have them taken out surgically to better appreciate their pathology under the microscope. He does not want to undergo any biopsies at this time. We did review his pulmonary function studies no evidence of any obstructive nor restrictive ventilatory defects. Otherwise patient is without any other complaints. We did talk about different institutions to consider. He would like to go to a tertiary center. Therefore will go ahead and refer him to [facility] where he can be evaluated by thoracic surgery and be consider for VATS with wedge biopsies. [facility] Medical History (Updated 06/10/24 @ 10:20 by Zulema Khanna MD) Hyperlipidemia Type 2 diabetes mellitus Pulmonary nodule 1 cm or greater in diameter Hx of gout Surgical History History of repair of left hip joint History of plastic surgery History of right elbow replacement History of tonsillectomy Family History Paternal Grandmother Breast cancer Brother Brain tumor Maternal Aunt Breast cancer Other Mental health disorder Substance use disorder Social History Household Members: Children Housing: House Alcohol intake: current Alcohol intake frequency: a few times a month Patient Tobacco Use Status: Never used Tobacco e-Cigarette/Vaping Use: Never Used Second Hand Smoke Exposure: No service: No Current occupational status: employed 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 [employer] Current occupational exposures/hazards: No Gender identity: Male Cognitive needs: No Hearing needs: No Vision needs: No (reading glasses) Review of Systems Const Denies fever(s), Denies night sweats and Denies weight loss Eyes Reports no additional complaints ENT Reports no additional complaints Card Denies chest pain and Denies dyspnea on exertion Resp Denies cough, Denies hemoptysis, Denies dyspnea on exertion and Denies wheezing GI Reports no additional complaints Musc Reports no additional complaints Skin/Breast Denies rash Neuro Reports as per HPI Juan Alberto/Lymph Reports no additional complaints Aller/Immun Denies wheezing Physical Exam Vital Signs: Last Vital Signs Pulse 99 06/15/24 09:32 BP 112/64 06/15/24 09:32 Pulse Ox 99 06/15/24 09:32 Oxygen Delivery Method Room Air 06/15/24 09:32 BMI result Body Mass Index 28.1 Const General: comfortable HEENT Head: Yes normocephalic Neck Neck: Yes supple Chest Chest palpation & inspection: normal inspection of the chest Resp Effort & Inspection: normal respiratory effort Auscultation: clear to auscultation bilaterally Cardio Heart sounds: S1 normal heart sound present and S2 normal heart sound present GI Palpation (GI): Soft to palpation Skin General skin exam: no rashes or lesions noted Extrem General: Yes no clubbing, cyanosis or edema Results Reviewed Results Reviewed: personally reviewed CT chest and PET scan demonstrating pulmonary nodules Assessment & Plan Assessment & Plan (1) Pulmonary nodule 1 cm or greater in diameter: Code(s): R91.1 - Solitary pulmonary nodule Category: Medical (2) Pulmonary nodules: Code(s): R91.8 - Other nonspecific abnormal finding of lung field Category: Medical Plan Refer to [facility] for possible VATS resection of pulmonary nodules F/U 3 months Coding Level of Care Code Est Pt Level 5 (07344) Diagnoses Pulmonary nodule 1 cm or greater in diameter R91.1 Pulmonary nodules R91.8 Time Spent (min) 60
--- OUTSIDE RECORDS SUMMARY | 2024-06-15 09:58 | XMS_ITS | Clinical Summary ---
Author Organization [facility] Address [address] [place] [address] Care Team Providers Care Core Shaper Top Name Role Phone Unavailable Primary Care Provider Unavailabl e Immunizations Name Administration Dates Next Due PPD/TST (Tuberculin Skin Test) 02/12/2015 Social History Tobacco Use Types Packs/Day Years Used Date Smoking Tobacco: Never Assessed Sex and Gender Information Value Date Recorded Sex Assigned at Not on file Legal Sex Male 8:22 AM EDT Gender Identity Not on file Sexual Orientation Not on file Plan of Treatment Health Maintenance Due Date Last Done Comments Hepatitis C Screening 1970 DTaP/Tdap/Td (1 - Tdap) 1987 Hep B (1 of 3 - 19+ 3-dose series) 02/03/1988 Pneumococcal 50+ years (1 of 1 - PCV) 2019 Zoster (Shingrix) (1 of 2) 2019 COVID-19 Vaccine (2023-2 5 season) 2024 Influenza (#1) 2024 HPV Vaccine Aged Out No longer eligi ble based on patient's age to complete this topic Hep A Aged Out No longer eligi ble based on patient's age to complete this topic Hib Aged Out No longer eligi ble based on patient's age to complete this topic Meningococcal ACWY Aged Out No longer eligible based on patient's age to complete this topic
--- OUTSIDE RECORDS SUMMARY | 2024-06-15 09:58 | XMS_ITS | Clinical Summary ---
Author Organization [facility] Address [address] [place] [address] Phone Care Team Providers Care Manufacturing Engineer Paint Name Role Phone Unavailable Primary Care Provider Unavailabl e Encounters Date Type Department Care Team Description 05/12/2024 2:59 PM EST - 05/12/2024 11:59 PM EST Hospital Encounter [facility] PET Scan [address] [place] [address] Solitary pulmonary nodule Discharge Disposition: Home or Self Care from Last 3 Months Social History Tobacco Use Types Packs/Day Years Used Date Smoking Tobacco: Never Assessed Sex and Gender Information Value Date Recorded Sex Assigned at Not on file Gender Identity Not on file Sexual Orientation Not on file Plan of Treatment Health Maintenance Due Date Last Done Comments DTaP,Tdap,and Td Vaccines (1 - Tdap) 02/03/1988 Hepatitis B Vaccines (1 of 3 - 19+ 3-dose series) 02/03/1988 Zoster Vaccines (1 of 2) 2019 COVID-19 Vaccine (4 - 2023- season) 2024 06/06/2021, 08/22/2020, 08/02/2020 Influenza Vaccine (#1) 2024 , 03/18/2019, 03/31/2018, Additional history exists Cholesterol Screening (Lipid Panel) 05/12/2024 Colorectal Cancer Screening: Colonoscopy 05/12/2024 Depression Screening 05/12/2024 HIV Screening 05/12/2024 Hepatitis C Screening 05/12/2024 Social Influencers of Health Screening 05/12/2024 HIB Vaccines Aged Out No longer eligi ble based on patient's age to complete this topic HPV Vaccines Aged Out No longer eligi ble based on patient's age to complete this topic Hepatitis A Vaccines Aged Out No long er eligible based on patient's age to complete this topic IPV Vaccines Aged Out No longer eligi ble based on patient's age to complete this topic MMR Vaccines Aged Out No longer eligi ble based on patient's age to complete this topic Meningococcal ACWY Vaccine Aged Out N o longer eligible based on patient's age to complete this topic Pneumococcal Vaccine: Pediatrics (0 to 5 Years) and At-Risk Patients (6 to 64 Years) Aged Out No longer eligible based on patient's age to complete this topic RSV Immunization Patients Under 20 months Aged Out No longer eligible based on patient's age to complete this topic Varicella Vaccines Aged Out No longer eligible based on patient's age to complete this topic Procedures Procedure Name Priority Date/Time Associated Diagnosis Comments PET CT SKULL TO MID THIGH INITIAL Routine 05/12/2024 4:51 PM EST Solitary pulmonary nodule from Last 3 Months Results * PET CT Skull to Mid Thigh Initial (05/12/2024 4:51 PM EST) Anatomical Region Laterality Modality Body Radiographic Petrona ging 05/13/2024 5:07 AM EST Impressions 05/14/2024 4:39 AM EST 1. ??Right-sided pulmonary nodules including 11 x 12 mm nodule demonstrating mild FDG activity and para-fissural nodule not demonstrating significant FDG activity. 2. ??No FDG avid thoracic lymphadenopathy Please note: The CT was acquired at a low radiation dose settings. ??The images are of nondiagnostic quality and used solely for purposes of attenuation correction and slice localization for the PET scan. ??If a diagnostic CT study is desired it must be ordered separately. -------- FINAL REPORT -------- Dictated By: Sweta Rojas Dictated Date: 05/13/2024 05:07 ET Assigned Physician: Sweta Rojas Reviewed and Electronically Signed By: Sweta Rojas Signed Date: 05/14/2024 04:39 ET Workstation ID: [id number] Transcribed By: Self Edit Transcribed Date: 05/13/2024 05:37 ET Narrative 05/14/2024 4:39 AM EST INDICATION: Outside chest CT demonstrated 17 mm right-sided nodular density along with 8 mm nodule. ??Further evaluation. TECHNIQUE: FDG PET-CT imaging was performed from the skull bases through the thighs in a single acquisition with data set reconstructed in axial, coronal, and sagittal planes at the computer workstation with fused data from both the PET imaging study and attenuation correction CT. The CT portion of the examination was done strictly for attenuation correction and is not a true diagnostic CT examination. DLP: ??1083 mGy-cm Radiopharmaceutical: 11.5 mCi of F-18 FDG IV. Blood glucose: 102 mg/dl. COMPARISON: None. FINDINGS: HEAD AND NECK: Nonenlarged cervical lymph nodes SUV max 1.4 on the left and 2.3 on the right. THORAX: 11 x 12 mm solid nodule in the superior segment of the right lower lobe SUV max 1.3 and 4 x 5 mm para-fissural nodule along the right major fissure SUV max 0.7. Nonenlarged right paratracheal lymph node SUV max 0.6 and right superior hilar SUV max 1.2 (mediastinal blood pool SUV Max 2.8). ??Nonenlarged paraesophageal lymph node SUV max 1.0. ABDOMEN/PELVIS: Nonenlarged abdominal lymph nodes including jose de jesus hepatis/peripancreatic (SUV max 1.4), portacaval (SUV max 2.3), mesenteric (SUV max 1.1), retroperitoneal SUV max 1.2), common iliac SUV max 1.7, external iliac SUV max 1.4 on the left and 0.6 on the right), inguinal measuring up to SUV Max 1.0. ?? Hepatic steatosis. ??Diverticulosis. ??Nonspecific bowel uptake. MUSCULOSKELETAL: No abnormal FDG activity. Procedure Note Sweta Rojas MD - 05/14/2024 INDICATION: Outside chest CT demonstrated 17 mm right-sided nodulardensity along with 8 mm nodule. Further evaluation. TECHNIQUE: FDG PET-CT imaging was performed from the skull bases throughthe thighs in a single acquisition with data set reconstructed in axial,coronal, and sagittal planes at the computer workstation with fused datafrom both the PET imaging study and attenuation correction CT. The CTportion of the examination was done strictly for attenuation correctionand is not a true diagnostic CT examination. DLP: 1083 mGy-cm Radiopharmaceutical: 11.5 mCi of F-18 FDG IV. Blood glucose: 102 mg/dl. COMPARISON: None. FINDINGS: HEAD AND NECK: Nonenlarged cervical lymph nodes SUV max 1.4 on the leftand 2.3 on the right. THORAX: 11 x 12 mm solid nodule in the superior segment of the right lowerlobe SUV max 1.3 and 4 x 5 mm para-fissural nodule along the right majorfissure SUV max 0.7. Nonenlarged right paratracheal lymph node SUV max 0.6 and right superiorhilar SUV max 1.2 (mediastinal blood pool SUV Max 2.8). Nonenlargedparaesophageal lymph node SUV max 1.0. ABDOMEN/PELVIS: Nonenlarged abdominal lymph nodes including portahepatis/peripancreatic (SUV max 1.4), portacaval (SUV max 2.3), mesenteric(SUV max 1.1), retroperitoneal SUV max 1.2), common iliac SUV max 1.7,external iliac SUV max 1.4 on the left and 0.6 on the right), inguinalmeasuring up to SUV Max 1.0. Hepatic steatosis. Diverticulosis. Nonspecific bowel uptake. MUSCULOSKELETAL: No abnormal FDG activity. IMPRESSION: 1. Right-sided pulmonary nodules including 11 x 12 mm noduledemonstrating mild FDG activity and para-fissural nodule not demonstratingsignificant FDG activity. 2. No FDG avid thoracic lymphadenopathy Please note: The CT was acquired at a low radiation dose settings. The images are ofnondiagnostic quality and used solely for purposes of attenuationcorrection and slice localization for the PET scan. If a diagnostic CTstudy is desired it must be ordered separately. -------- FINAL REPORT -------- Dictated By: Sweta Rojas Dictated Date: 05/13/2024 05:07 ET Assigned Physician: Sweta Rojas Reviewed and Electronically Signed By: Sweta Rojas Signed Date: 05/14/2024 04:39 ET Workstation ID: [id number] Transcribed By: Self Edit Transcribed Date: 05/13/2024 05:37 ET Philippe Velazquez MD IMG NM PROCEDURES from Last 3 Months
== END 2024-06-15 10:29 | disposition home or self-care (01) ==
PROVIDERS: PCP Family Medicine; Visit Provider Hospitalist
DX: R91.1 Solitary pulmonary nodule (principal); R91.8 Other nonspecific abnormal finding of lung field
CPT/HCPCS: 99215

== ENCOUNTER → 2024-06-15 09:25 | Outpatient (BNVA) | payer OTHER, SELFPAY | PROVIDERS: PCP Family Medicine; Visit Provider Hospitalist ==

== ENCOUNTER 2024-06-20 07:40 | Outpatient (AMB) | payer OTHER, SELFPAY ==
--- OUTSIDE RECORDS SUMMARY | 2024-06-20 07:43 | XMS_ITS | Clinical Summary ---
Author Organization [facility] Address [address] [place] [address] Care Team Providers Care Poultry Husbandry Worker Name Role Phone Unavailable Primary Care Provider [...]
--- OUTSIDE RECORDS SUMMARY | 2024-06-20 07:43 | XMS_ITS | Clinical Summary ---
Author Organization [facility] Address [address] [place] [address] Phone Care Team Providers Care Field Marketing Specialist Name Role Phone Unavailable Primary Care Provider Unavailabl e Encounters Date Type Department Care Team Description 05/12/2024 2:59 PM EST - 05/12/2024 11:59 PM EST Hospital Encounter [facility] PET Scan [address] [place] [address] Solitary pulmonary nodule Discharge Disposition: [...] Signed Date: 05/14/2024 04:39 ET Workstation ID: [id number] Transcribed By: Self Edit Transcribed Date: 05/13/2024 [...] Date: 05/13/2024 05:07 ET Assigned Physician: Sweta Rjoas Reviewed and Electronically Signed By: Sweta Rojas Signed Date: 05/14/2024 04:39 ET Workstation ID: [id number] Transcribed By: Self Edit Transcribed Date: 05/13/2024 05:37 ET Philippe Velazquez MD IMG NM PROCEDURES from Last 3 Months
--- NOTE | 2024-06-20 07:45 | A.OFFVIS_ITS ---
Vital Signs 3 06/20/24 07:46 Height 6 ft 3 in Weight 233 lb 7.512 oz BMI 29.2 BP 128/68 Blood Pressure Location Lt brachial Position Sitting Pulse 87 Pulse Source Pulse Oximeter Intake Visit Reasons: T2DM Intake Note: Patient present today for Type 2 Diabetes Mellitus. Last Diabetic eye exam: 12/2023 Last Podiatry Visit: Doesn't have one Random Glucose: 113 mg/dl HgA1C: 6.9% 06/10/24 Evaporator Supervisor Required: No Accompanied by: Self / Same As Patient Allergies clarithromycin [From BIAXIN] Allergy (Severe, Verified 06/20/24 07:51) ANAPHYLAXIS ENVIRONMENTAL Allergy (Intermediate, Uncoded 06/20/24 07:51) ITCHY EYES RUNNY NOSE Medication List - Last Reconciled 06/20/24 by Zulema Khanna MD allopurinol 200 mg (2 x 100 mg) PO DAILY 90 days amlodipine 10 mg PO DAILY 90 days blood sugar diagnostic (FreeStyle Lite Strips) DX: E11.9, test blood sugar once a day, 90 days blood-glucose meter (FreeStyle Lite Meter kit) DX: E11.9, test blood sugar once a day, duration 999 days buspirone 5 mg PO BID 30 days dulaglutide 4.5 mg (0.5 mL) subcut QWEEK 28 days fenofibrate micronized 200 mg PO DAILY 30 days fluticasone propionate 50 mcg/actuation (Flonase Allergy Relief) 1 spray intranasal Q12H 30 days lacosamide 200 mg PO DAILY lancets (FreeStyle Lancets) As directed losartan 50 mg PO DAILY 90 days metformin 1,000 mg PO BIDWMEAL trazodone 50 mg PO BEDTIME PRN 30 days zolpidem 10 mg PO BEDTIME PRN 30 days HPI Comments Details: 54-year-old male coming in today for followup of type 2 diabetes mellitus and hyponatremia. Type 2 DM History of diabetes Diagnosed with Type 2 DM 2022 diagnosed on blood work Prior therapy: Current regimen: Turlicity 4.5 mg weekly (last increased summer 2023) Metformin 1000 BID Denies any symptoms of hyperglycemia including polyphagia, polyuria, polydipsia. Denies any hypoglycemic symptoms. CGM data downloaded from June 07 to 06/20/2024 Average blood glucose 129 mg/dL G HI 6.4% CGM active: 90% Standard deviation 30 mg/dL In target range 95% of the time In high range 4% of the time In very high range 1% of the time In low range 0% of the time Interpretation: Excellent control of diabetes, staying within target range most of the time. No hypoglycemia Vaccines: Not vaccinated for flu this season [id number] Vaccinated for covid 19 initially in 2020, no boosters after Complications Eye exam: Last eye exam was April 2024, no retinopathy Neuropathy: denies neuropathy symptoms Kidney disease: no kidney disease Macrovascular complications: No history of macrovascular complications. Last dental cleaning: October 2023 Statin: not on a statin, he had elevated TGL levels August 2023 in 481 now down to 110 from 02/2024 on fenofibrate 200 mcg daily, LDL 68 mg/dl February 2024 SHITAL/ARB: losartan 50 mg daily , urine microalbumin < 5 06/14/24 Exercise: Walk 1.5 mile daily every other day Diet control: Avoids carbs 3 meals a day BF 7 30 and 8 AM : bagel or bahamian muffin with fruit, coffee with cream no sugar uses Truvia Lunch noon : manager risk salad with soup, or a sandwich Dinner 5 to 7 pm: chicken breast with veggeies grilled or steamed No sodas , or sugar free juices/ gatoraide He has never had any hospitalizations for hyperglycemia/hypoglycemia. Diagnosed withe seizure disorder in March 2024 Weight lost 30 lbs since summer 2023 Weight stable since last visit A1c 6.9 06/10/24 down from 8.6 % in March 2024 Hyponatremia Reports drinking 8 to 12 ounces water bottles 7 bottles daily This amounts to 2 L almost daily Plus drink 2 coffees Sometimes also a gatorside No SOB , No leg swelling No kidney disease No liver disease Labs Noted to have low sodium levels since winter 2023, sodium of 132, TSH 1.47 , subsequently labs Apr 2024 sodium ranging from 129 to 133, labs 05/20/24 NA 129, osmolality 275, 11 AM cortisol 16.4 whihc is normal . He has The CT scan of the neck March 2024 demonstrated part of the lung parenchyma. It demonstrated a 17 mm right sided nodular density along with an 8 mm nodule adjacent to it. , seeing pulmonology had PET scan 05/12/23, nodules need follow up imaging, patient considering biopsy/ resection, waiting for referral with [facility] thoracic surgery department PET-CT performed 05/12/2024 at [facility] demonstrated 11 x 12 mm right pulmonary nodule demonstrating mild FDG activity, no FDG avid lymphadenopathy. He has follow up with b2b sales professional Dr. Velazquez for this. He is not a smoker and he does not have any pulmonary symptoms. He was also evalated by oncology Dr. Card for submandibular lymphadenopathy which per her assesment has decreased and is no longer tender, here tender adenopathy a week to 10 days ago. It seems to be resolving spontaneously. Recently performed PET-CT demonstrated cervical lymph nodes measuring 1.4-2.3 cm without any FDG activity. This is probably inflammatory or infectious. Interval history Labs 06/14/2024 after restricting fluid intake to 1.5 L per day showed sodium improved to 132 from 129 millimole per L. GFR remains greater than 60. Serum osmolality 283, normal thyroid function with TSH of 1.21, robust cortisol level of 15.4 at 09:00, acth 36 DHEA-S 84 Urine osmolality 528 with a urine sodium 99. Physical exam General: sitting comfortably in no acute distress HEENT: normocephalic/atraumatic, Neck: supple, symmetrical, Cardiac: normal heart sounds Pulm: normal breath sounds B/L, no added breath sounds Abd: not distended, no tenderness Extremities: no edema, no signs of myxedema Neuro: AAO x3, Speech: normal, no facial droop, moving all 4 extremities Skin: no rash Foot exam: done 06/10/24 intact sensation to monofilament, intact pulses, intact vibration Laboratory Tests 09/25/18 06/09/19 10/29/21 01:42 10:45 09:46 Plt Count Sodium 138 140 Creatinine Estimated GFR Glucose (Clinic) Random Glucose Hgb A1c (Clinic) Osmolality AST ALT Alkaline Phosphatase Albumin Triglycerides Cholesterol LDL Cholesterol, Calc HDL Cholesterol Vitamin B12 TSH 2.18 Random Cortisol Plasma Free Metaneph Plasma Free Normeta Plas Total Metaneph Urine Total Volume Urine Creatinine Ur Creatinine 24 Hour Urine Microalbumin Microalb/Creat Ratio Ur Free Cortisol 24 Hr 06/12/22 08/14/22 09/29/22 09:25 09:50 08:05 Plt Count Sodium 136 133 L 137 Creatinine Estimated GFR Glucose (Clinic) Random Glucose Hgb A1c (Clinic) Osmolality AST ALT Alkaline Phosphatase Albumin Triglycerides Cholesterol LDL Cholesterol, Calc HDL Cholesterol Vitamin B12 TSH Random Cortisol Plasma Free Metaneph Plasma Free Normeta Plas Total Metaneph Urine Total Volume Urine Creatinine Ur Creatinine 24 Hour Urine Microalbumin Microalb/Creat Ratio Ur Free Cortisol 24 Hr 10/01/22 02/13/23 05/15/23 14:47 09:35 08:40 Plt Count Sodium Creatinine Estimated GFR Glucose (Clinic) Random Glucose Hgb A1c (Clinic) 10.7 H Osmolality AST ALT Alkaline Phosphatase Albumin Triglycerides Cholesterol LDL Cholesterol, Calc HDL Cholesterol Vitamin B12 TSH 2.13 Random Cortisol Plasma Free Metaneph Plasma Free Normeta Plas Total Metaneph Urine Total Volume Urine Creatinine 118.49 Ur Creatinine 24 Hour Urine Microalbumin 6.0 Microalb/Creat Ratio 5.0 Ur Free Cortisol 24 Hr 05/15/23 05/21/23 09/02/23 Unknown 08:39 08:30 Plt Count Sodium 139 138 Creatinine Estimated GFR Glucose (Clinic) Random Glucose Hgb A1c (Clinic) 7.4 H Osmolality AST ALT Alkaline Phosphatase Albumin Triglycerides 459 H 481 H Cholesterol LDL Cholesterol, Calc HDL Cholesterol Vitamin B12 TSH Random Cortisol Plasma Free Metaneph Plasma Free Normeta Plas Total Metaneph Urine Total Volume Urine Creatinine Ur Creatinine 24 Hour Urine Microalbumin Microalb/Creat Ratio Ur Free Cortisol 24 Hr 03/22/24 03/28/24 04/13/24 08:08 16:56 15:43 Plt Count Sodium 135 132 L Creatinine Estimated GFR Glucose (Clinic) Random Glucose Hgb A1c (Clinic) 8.6 H Osmolality AST ALT Alkaline Phosphatase Albumin 4.6 Triglycerides 155 H Cholesterol 134 LDL Cholesterol, Calc 68 HDL Cholesterol 35 L Vitamin B12 312 TSH 1.47 Random Cortisol Plasma Free Metaneph Plasma Free Normeta Plas Total Metaneph Urine Total Volume Urine Creatinine Ur Creatinine 24 Hour Urine Microalbumin Microalb/Creat Ratio Ur Free Cortisol 24 Hr 04/28/24 04/29/24 05/20/24 10:45 15:14 11:46 Plt Count Sodium 133 L 134 L 129 L Creatinine 0.85 Estimated GFR > 60 Glucose (Clinic) Random Glucose 122 H Hgb A1c (Clinic) Osmolality 275 L AST 21 ALT 42 H Alkaline Phosphatase 44 Albumin Triglycerides Cholesterol LDL Cholesterol, Calc HDL Cholesterol Vitamin B12 TSH Random Cortisol 16.4 Plasma Free Metaneph Plasma Free Normeta Plas Total Metaneph Urine Total Volume Urine Creatinine Ur Creatinine 24 Hour Urine Microalbumin Microalb/Creat Ratio Ur Free Cortisol 24 Hr 05/21/24 05/23/24 06/10/24 08:00 07:00 07:53 Plt Count 341 Sodium Creatinine Estimated GFR Glucose (Clinic) 104 Random Glucose Hgb A1c (Clinic) Osmolality AST ALT Alkaline Phosphatase Albumin Triglycerides Cholesterol LDL Cholesterol, Calc HDL Cholesterol Vitamin B12 TSH Random Cortisol Plasma Free Metaneph 33 Plasma Free Normeta 80 Plas Total Metaneph 113 Urine Total Volume 1550 Urine Creatinine Ur Creatinine 24 Hour 1.33 Urine Microalbumin Microalb/Creat Ratio Ur Free Cortisol 24 Hr 14.7 06/10/24 08:00 Plt Count Sodium Creatinine Estimated GFR Glucose (Clinic) Random Glucose Hgb A1c (Clinic) 6.9 H Osmolality AST ALT Alkaline Phosphatase Albumin Triglycerides Cholesterol LDL Cholesterol, Calc HDL Cholesterol Vitamin B12 TSH Random Cortisol Plasma Free Metaneph Plasma Free Normeta Plas Total Metaneph Urine Total Volume Urine Creatinine Ur Creatinine 24 Hour Urine Microalbumin Microalb/Creat Ratio Ur Free Cortisol 24 Hr Laboratory Tests 05/23/24 06/14/24 06/14/24 07:00 08:50 08:52 Sodium 132 L Creatinine 1.06 Estimated GFR > 60 Glucose (Clinic) Random Glucose 128 H Osmolality 283 TSH 1.21 DHEA Sulfate 84 Random Cortisol 15.4 ACTH 36 Urine Osmolality 528 Ur Random Sodium 99.0 Urine Total Volume 1550 Urine Creatinine 104.49 Ur Creatinine 24 Hour 1.33 Urine Microalbumin < 5.0 Ur Free Cortisol 24 Hr 14.7 06/20/24 07:53 Sodium Creatinine Estimated GFR Glucose (Clinic) 113 Random Glucose Osmolality TSH DHEA Sulfate Random Cortisol ACTH Urine Osmolality Ur Random Sodium Urine Total Volume Urine Creatinine Ur Creatinine 24 Hour Urine Microalbumin Ur Free Cortisol [address] CHEST WITH CONTRAST 05/16/24 CLINICAL INFORMATION: Other nonspecific abnormal finding of lung field COMPARISON: Chest radiograph 09/25/2018 TECHNIQUE: Multidetector volumetric CT imaging of the chest was obtained after the administration of 65 mL of Omnipaque 350 intravenous contrast without immediate adverse reactions. Axial MIP volume rendering provided. Sagittal and coronal reformatted images were obtained. This CT examination was performed using dose optimization techniques as appropriate, variously including the following: *Automated exposure control *Adjustment of mA and/or kV according to patient size (this includes techniques or standardized protocols for targeted exams where dose is matched to indication/reason for exam; i.e. extremities or head) *Use of iterative reconstruction technique DLP: 196 mGy-cm FINDINGS: LUNGS: Central airways are patent. No focal consolidation or mass. Dependent bilateral subsegmental atelectasis. No pleural effusion or pneumothorax. There is a 1.3 x 0.9 cm fat attenuating lesion within the right lower lobe adjacent to the major fissure. There is a 0.5 cm medial right upper lobe pulmonary nodule (series #7 axial image 56). There is an additional 0.7 cm low-density nodule within the right lower lobe adjacent to the major fissure. There are multiple angular nodules along the bilateral fissures which are favored to represent perifissural lymph nodes. MEDIASTINUM: The heart is globally normal without peripheral effusion. No coronary arterial calcifications. No mediastinal or hilar lymphadenopathy. Normal thyroid. AXILLA: No lymphadenopathy. UPPER ABDOMEN: Unremarkable OSSEOUS STRUCTURES: Unremarkable. CT/CT chest w IV con IMPRESSION: 1. There is a 1.3 cm fat attenuating lesion within the right lower lobe adjacent to the major fissure. 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 2. There is an additional 0.7 cm low-density nodule within the right lower lobe adjacent to the major fissure and a 0.5 cm medial right upper lobe pulmonary nodule. According to the UPDATED 2017 Fleischner Society recommendations, the advised follow-up imaging for multiple solid nodules, the largest measuring 6 mm or greater, is: LOW RISK PATIENT: CT at 3-6 months, then consider CT at 18-24 months. HIGH RISK PATIENT: CT at 3-6 months, then at 18-24 months. Fleischner guidelines were followed. Electronically signed by: Roseline Arredondo DO 05/16/2024 07:30 PM [facility] Medical History Hyperlipidemia Type 2 diabetes mellitus Pulmonary nodule 1 cm or greater in diameter Hx of gout Surgical History History of repair of left hip joint History of plastic surgery History of right elbow replacement History of tonsillectomy Family History Paternal Grandmother Breast cancer Brother Brain tumor Maternal Aunt Breast cancer Other Mental health disorder Substance use disorder Social History Household Members: Children Housing: House Alcohol intake: current Alcohol intake frequency: a few times a month Patient Tobacco Use Status: Never used Tobacco e-Cigarette/Vaping Use: Never Used Second Hand Smoke Exposure: No service: No Current occupational status: employed Current occupation: [employer] for [employer] Current occupational exposures/hazards: No Gender identity: Male Cognitive needs: No Hearing needs: No Vision needs: No (reading glasses) Physical Exam Vital Signs: Last Vital Signs Pulse 87 06/20/24 07:46 BP 128/68 06/20/24 07:46 BMI result Body Mass Index 29.2 Office Procedures Glucose Monitoring Details Details: see [facility] [address] - Glucose monitoring, continuous-physician I&R Procedure code (CPT) selection complete Results Reviewed Results Reviewed: Laboratory Last Values Glucose (Clinic) 113 mg/dL (60-115) 06/20/24 07:53 Assessment & Plan Assessment & Plan (1) Hyponatremia: Code(s): E87.1 - Hypo-osmolality and hyponatremia Category: Medical Plan: Labs Noted to have low sodium levels since winter 2023, sodium of 132, TSH 1.47 , subsequently labs Apr 2024 sodium ranging from 129 to 133, labs 05/20/24 NA 129, osmolality 275, 11 AM cortisol 16.4 whihc is normal . He is euvolemic on my exam . No history of congestive heart failure, no history of liver disease, he is not on any diuretics. Does not look hypovolemic or hypervolemic. Labs 06/14/2024 after restricting fluid intake to 1.5 L per day showed sodium improved to 132 from 129 millimole per L. GFR remains greater than 60. Serum osmolality 283, normal thyroid function with TSH of 1.21, robust cortisol level of 15.4 at 09:00, acth 36 DHEA-S 84 Urine osmolality 528 with a urine sodium 99. This rules out thyroid dysfunction and adrenal insufficiency. His labs at this time are consistent with SIADH. His sodium has somewhat improved after fluid restriction of 1.5 L per day. He has also added some increased salt to his diet. He has good blood pressure numbers. Based on history he was previously drinking at least 2.1 L of water daily. In addition to that he has some other beverages. This could have also resulted in dilutional hyponatremia to some extent. No medications on his list to cause SIADH. No history of stroke, though he was diagnosed recently with seizure disorder in March 2024, and per neurology notes MRI was otherwise unremarkable. He does not have any history of COPD, nonsmoker. He does have pulmonary nodules that are being evaluated currently and he is following with pulmonology. Could possibly be a paraneoplastic syndrome in that case. He is pending wedge biopsies with thoracic surgery at [facility]. Given no thyroid dysfunction or adrenal insufficiency, I will place nephrology referral for management of SIADH. His sodium has come up nicely with fluid restriction and maybe that is all he will need, however if does not improve nephrology could consider tolvaptan. Until he sees Nephrology, I will continue to follow him closely for his SIADH. I have asked him to further restrict his fluid down to 1 L per day and continue with the increased salt in diet. Plan: -Restrict water intake to 1 L/day -Continue to add salt in your diet -Repeat blood work and urine tests prior to next appointment -nephrology referral placed -follow up in 3 weeks (2) SIADH (syndrome of inappropriate ADH production): Code(s): E22.2 - Syndrome of inappropriate secretion of antidiuretic hormone Category: Medical (3) Type 2 diabetes mellitus: Code(s): E11.9 - Type 2 diabetes mellitus without complications Category: Medical Qualifiers: Diabetes mellitus middle or intermediate school principal insulin use: without middle or intermediate school principal use Diabetes mellitus complication status: without complication Qualified Code(s): E11.9 - Type 2 diabetes mellitus without complications Plan: 54-year-old male with type 2 diabetes mellitus. Type 2 diabetes mellitus diagnosed in 2022, without long-term insulin use, without complications. His A1c 06/10/24 was 6.9% which has come down from 8.6% in April 2024. In April 2024 he was in the hospital and was acutely sick as well. Currently he is on Trulicity 4.5 mg weekly which was increased about 6 months ago. He is also on metformin 1000 b.i.d.. He has lost 30 lb since summer 2023. He is doing well in terms of diet and exercise. Weight remained stable since last visit. CGM data downloaded for the past 2 weeks which shows that he has excellent control of his diabetes and remaining within target range most of the time. I told him he is doing very well in terms of his type 2 diabetes mellitus and we can see him for now on a 6 monthly basis for his diabetes. He would like a prescription for Dexcom G7, I told him most likely it is not going to be covered by his insurance but he is going to see how much she can pay [id number]. Plan: -continue Trulicity 4.5 mg weekly -continue metformin 1000 b.i.d. -continue taking vitamin B12 500 or 1000 mcg daily as vitamin B12 was on the lower side -encouraged 150 minutes of exercise per week -up-to-date on eye visit, no retinopathy -foot exam done 06/10/2024 was unremarkable -we will address his diabetes now sometime in summer 2024, he does not need closer follow up for this unless controll gets worse. (4) Hyperlipidemia: Code(s): E78.5 - Hyperlipidemia, unspecified Category: Medical Qualifiers: Hyperlipidemia type: pure hypertriglyceridemia Qualified Code(s): E78.1 - Pure hyperglyceridemia Plan: not on a statin, he had elevated TGL levels August 2023 in 481 now down to 110 from 02/2024 on fenofibrate 200 mcg daily, LDL 68 mg/dl February 2024 Continue fenofibrate. Plan I spent 45 minutes in reviewing the record, seeing the patient and documenting in the medical record. Orders: Orders 2 Basic Metabolic Panel 3 Weeks E22.2 - Syndrome of inappropriate secretion of antidiuretic hormone Sodium Urine Random 3 Weeks E22.2 - Syndrome of inappropriate secretion of antidiuretic hormone Osmolality Urine 3 Weeks E22.2 - Syndrome of inappropriate secretion of antidiuretic hormone Osmolality, Serum 3 Weeks E22.2 - Syndrome of inappropriate secretion of antidiuretic hormone Potassium Urine Random 3 Weeks E22.2 - Syndrome of inappropriate secretion of antidiuretic hormone AMB Glucose Monitoring Today E11.9 - Type 2 diabetes mellitus without complications Referrals 2 Nephrology Referral E22.2 - Syndrome of inappropriate secretion of antidiuretic hormone, E87.1 - Hypo-osmolality and hyponatremia Medications: New 2 blood-glucose sensor (Dexcom G7 Sensor device) As directed every 10 days 6 ea 3RF Refilled 2 metformin 1,000 mg PO BIDWMEAL 180 tabs 4RF dulaglutide 4.5 mg (0.5 mL) subcut QWEEK 28 days 6 mL 3RF Patient Instructions: Continue metformin and trulicity as it is Restrict water intake to 1 L/day Continue to add salt in your diet Repeat blood work and urine tests prior to next appointment See nephrology, someone should call you for that appointment Followup in 3 weeks Keep me in the loop regarding follow up with thoracic surgery at [facility] Coding Level of Care Code Est Pt Level 5 (97833) Diagnoses Hyponatremia E87.1 SIADH (syndrome of inappropriate ADH production) E22.2 Type 2 diabetes mellitus without complication, without long-term current use of insulin E11.9 Diabetes mellitus [facility] insulin use: without middle or intermediate school principal use Diabetes mellitus complication status: without complication Pure hypertriglyceridemia E78.1 Hyperlipidemia type: pure hypertriglyceridemia CPT Codes Details - CPT: 97671 - Glucose monitoring, continuous-physician I&R ([id number]) Time Spent (min) 45
[2024-06-20 07:46] VITALS: BP 128/68; PULSE 87; BMI 29.2
[2024-06-20 07:57] LABS: Glucose, Whole Blood 113 mg/dL (60-115)
== END 2024-06-20 08:45 | disposition home or self-care (01) ==
PROVIDERS: PCP Family Medicine; Visit Provider Student in an Organized Health Care Education/Training Program
DX: E22.2 Syndrome of inappropriate secretion of antidiuretic hormone (principal); E11.9 Type 2 diabetes mellitus without complications; E78.1 Pure hyperglyceridemia
CPT/HCPCS: 95251; 99215

== ENCOUNTER → 2024-06-20 07:40 | Outpatient (BNVA) | payer OTHER, SELFPAY | PROVIDERS: PCP Family Medicine; Visit Provider Student in an Organized Health Care Education/Training Program | DX: E11.9 Type 2 diabetes mellitus without complications (principal); E22.2 Syndrome of inappropriate secretion of antidiuretic hormone; E78.1 Pure hyperglyceridemia; Z79.84 Long term (current) use of oral hypoglycemic drugs; Z79.899 Other long term (current) drug therapy | CPT/HCPCS: 82947 ==

== ENCOUNTER 2024-07-04 14:54 | Outpatient (AMB) | payer OTHER, SELFPAY ==
--- NOTE | 2024-07-04 15:04 | HO.NEPHOV_ITS ---
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 He was seen in [facility] where he underwent a CT scan of the head and neck. The CT scan of the neck demonstrated part of the lung parenchyma which showed a 17 mm right sided nodular density along with an 8 mm nodule adjacent to it. He had a full cardiac workup and ultimately diagnosed with seizures. He did have an MRI is going to be following with Neurology as well. He did not have any shortness breath or cough. 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 He had no significant lymphadenopathy. The patient is very concerned about the nodular densities and he would like to just to have them taken out surgically to better appreciate their pathology under the microscope. He was going to be seen in [place] for further work up. In the interim, he was found to have hyponatremia. He denies drinking excess beer or free water. He has no H/O hyperkalemia, hypotension or hypoglycemia. He has no H/O uncontrolled thyroid disorders, depression, H/O anti depressant medication intake, HF, liver or renal failure. He has no weakness or change in mental status. He is concerned about his lung lesion. [facility] Medical History (Updated 08/09/24 @ 07:41 by Rafita Lira MD) Overweight (BMI 25.0-29.9) Allergic rhinitis Insomnia Gout Mixed hyperlipidemia Diabetes mellitus Epilepsy SIADH (syndrome of inappropriate ADH production) Hyperlipidemia Type 2 diabetes mellitus Pulmonary nodule 1 cm or greater in diameter Hx of gout Surgical History History of repair of left hip joint History of plastic surgery History of right elbow replacement History of tonsillectomy Family History Paternal Grandmother Breast cancer Brother Brain tumor Maternal Aunt Breast cancer Other Mental health disorder Substance use disorder Social History Household Members: Children Housing: House Alcohol intake: current Alcohol intake frequency: a few times a month Patient Tobacco Use Status: Never used Tobacco e-Cigarette/Vaping Use: Never Used Second Hand Smoke Exposure: No service: No Current occupational status: employed 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 [employer] Current occupational exposures/hazards: No Gender identity: Male Cognitive needs: No Hearing needs: No Vision needs: No (reading glasses) Review of Systems Const All systems reviewed & are unremarkable except as noted in HPI and below Physical Exam Vital Signs: Last Vital Signs Pulse 95 07/04/24 15:06 BP 110/60 07/04/24 15:06 Pulse Ox 96 07/04/24 15:06 Oxygen Delivery Method Room Air 07/04/24 15:06 BMI result Body Mass Index 28.5 Const General: comfortable and no acute distress Orientation/consciousness: patient oriented x3 HEENT Head: Yes normocephalic Mouth: Normal oral and palatal mucosa present Eyes EOM: EOMs intact bilaterally Neck Neck: Yes supple Resp Auscultation: clear to auscultation bilaterally Cardio Jugular venous distension: no JVD Rate: regular rate GI Palpation (GI): Soft to palpation Auscultation: normal bowel sounds General: Yes no CVA tenderness Back/Spine/Pelvis Back: no CVA tenderness Skin General skin exam: no rashes or lesions noted Neuro General: patient oriented x3 and moves all extremities Extrem General: Yes no pedal edema Results Reviewed Nephrology Results: Sodium 132 mmol/L (135-145) L 06/14/24 Potassium 4.1 mmol/L (3.3-5.1) 06/14/24 Chloride 101 mmol/L (96-108) 06/14/24 Carbon Dioxide 25 mmol/L (22-29) 06/14/24 BUN 10 mg/dL (9-16) 06/14/24 Creatinine 1.06 mg/dL (0.5-1.4) 06/14/24 Calcium 9.6 mg/dL (8.4-10.2) 06/14/24 Urine Creatinine 104.49 mg/dL 06/14/24 Assessment & Plan Assessment & Plan (1) Hyponatremia: Code(s): E87.1 - Hypo-osmolality and hyponatremia Category: Medical (2) Hypertension: Code(s): I10 - Essential (primary) hypertension Category: Medical Qualifiers: Hypertension type: primary hypertension Qualified Code(s): I10 - Essential (primary) hypertension Plan Hyponatremia likely due to excess ADH No H/O HF, liver disease or renal failure Denies polydypisia or excess beer drinking Serum K and rest of the work up reviewed Clinically euvolemic. Fluid restriction for now Needs to pursue pathology of lung lesion Follow up blood work and urine studies ordered No indication for PO Urea/NaCl tabs/Demeclocycline Shall continue to F/U. Further mgt is pending evolving data Orders: Orders Blood Urea Nitrogen 3 Months I10 - Essential (primary) hypertension, E87.1 - Hypo-osmolality and hyponatremia Electrolytes 3 Months I10 - Essential (primary) hypertension, E87.1 - Hypo- osmolality and hyponatremia Protein Creatinine Ratio, Ur 3 Months I10 - Essential (primary) hypertension, E87.1 - Hypo-osmolality and hyponatremia Osmolality, Serum 3 Months I10 - Essential (primary) hypertension, E87.1 - Hypo-osmolality and hyponatremia Creatinine 3 Months I10 - Essential (primary) hypertension, E87.1 - Hypo- osmolality and hyponatremia Calcium 3 Months I10 - Essential (primary) hypertension, E87.1 - Hypo- osmolality and hyponatremia Osmolality Urine 3 Months I10 - Essential (primary) hypertension, E87.1 - Hypo- osmolality and hyponatremia Sodium Urine Random 3 Months I10 - Essential (primary) hypertension, E87.1 - Hypo-osmolality and hyponatremia TSH reflex Free T4 3 Months I10 - Essential (primary) hypertension, E87.1 - Hypo-osmolality and hyponatremia Coding Level of Care Code New Pt Level 4 (92096) Diagnoses Hyponatremia E87.1 Primary hypertension I10 Hypertension type: primary hypertension
[2024-07-04 15:06] VITALS: BP 110/60; PULSE 95; O2SAT 96; BMI 28.5
--- OUTSIDE RECORDS SUMMARY | 2024-07-04 16:07 | XMS_ITS | Clinical Summary ---
Author Organization [facility] Address [address] [place] [address] Phone Care Team Providers Care Site Auditor Name Role Phone Unavailable Primary Care Provider Unavailabl e Encounters Date Type Department Care Team Description 05/12/2024 2:59 PM EST - 05/12/2024 11:59 PM EST Hospital Encounter [facility] PET Scan [address] [place] [address] Solitary pulmonary nodule Discharge Disposition: Home or Self Care from Last 3 Months Social History Tobacco Use Types Packs/Day Years Used Date Smoking Tobacco: Never Assessed Sex and Gender Information Value Date Recorded Sex Assigned at Not on file Legal Sex Male 2:53 PM EST Gender Identity Not on file Sexual Orientation Not on file Plan of Treatment Health Maintenance Due Date Last Done Comments DTaP,Tdap,and Td Vaccines (1 - Tdap) 02/03/1988 Hepatitis B Vaccines (1 of 3 - 19+ 3-dose series) 02/03/1988 Zoster Vaccines (1 of 2) 2019 COVID-19 Vaccine ( - season) 2024 06/06/2021, 08/22/2020, 08/02/2020 Influenza Vaccine [...] Signed Date: 05/14/2024 04:39 ET Workstation ID: [id number] Transcribed By: Self Edit Transcribed Date: 05/13/2024 [...] Signed Date: 05/14/2024 04:39 ET Workstation ID: [id number] Transcribed By: Self Edit Transcribed Date: 05/13/2024 05:37 ET us Philippe Velazquez MD IMG NM PROCEDURES Final Re sult from Last 3 Months
--- OUTSIDE RECORDS SUMMARY | 2024-07-04 16:07 | XMS_ITS | Clinical Summary ---
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
== END 2024-07-04 15:39 | disposition home or self-care (01) ==
PROVIDERS: PCP Family Medicine; Referring Provider Student in an Organized Health Care Education/Training Program; Visit Provider Internal Medicine Nephrology
DX: E87.1 Hypo-osmolality and hyponatremia (principal); I10 Essential (primary) hypertension
CPT/HCPCS: 99204

== ENCOUNTER 2024-07-19 13:36 | Outpatient (AMB) | payer OTHER, SELFPAY ==
[2024-07-19 13:56] VITALS: BP 122/80; PULSE 97; O2SAT 98; BMI 28.3
--- NOTE | 2024-07-19 13:56 | A.OFFPC_ITS ---
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: No Accompanied by: Self / Same As Patient Allergies clarithromycin [From BIAXIN] Allergy (Severe, Verified 07/19/24 14:38) ANAPHYLAXIS ENVIRONMENTAL Allergy (Intermediate, Uncoded 07/19/24 14:38) ITCHY EYES RUNNY NOSE Medication List - Last Reconciled 07/19/24 by Kalpesh Luu MD allopurinol 200 mg (2 x 100 mg) PO DAILY 90 days amlodipine 10 mg PO DAILY 90 days blood sugar diagnostic (FreeStyle Lite Strips) DX: E11.9, test blood sugar once a day, 90 days blood-glucose meter (FreeStyle Lite Meter kit) DX: E11.9, test blood sugar once a day, duration 999 days blood-glucose sensor ([employer] G7 Sensor device) As directed every 10 days dulaglutide 4.5 mg (0.5 mL) subcut QWEEK 28 days fenofibrate micronized 200 mg PO DAILY 30 days fluticasone propionate 50 mcg/actuation (Flonase Allergy Relief) 1 spray intranasal Q12H 30 days lacosamide 200 mg PO DAILY lancets (FreeStyle Lancets) As directed losartan 50 mg PO DAILY 90 days metformin 1,000 mg PO BIDWMEAL zolpidem 10 mg PO BEDTIME PRN 30 days Tobacco use date assessed: 07/19/24 Dental Screening Dental Screen Date: 07/19/24 Did you have a dental visit in the last 12 months?: Yes Did you have a dental problem in the last 6 months where you did not have access to dental care?: No Was dental information given to patient?: Patient has dentist HPI establish care/[facility] Dr. Vargas HPI Details Patient comes in today to establish care - is transferring over from Dr. Vargas States that he is currently concerned about some recently discovered pulmonary nodules during workups of his seizures at [facility] back in March 2024 He reportedly developed neurological symptoms, including acute onset of episodic tremors of bilateral upper extremities associated with sensations of goose bumps, flushing, tachycardia and stuttering/difficulty getting words out CT and MRI of the head done at that time were negative but his CTA of the neck revealed incidentally two right lower lobe pulmonary nodules, for which he is currently undergoing further workups He was also found to have a low serum sodium level at the time of his admission at 129 mmol/L that remained stable throughout his admission He was referred to Neurology for further evaluation and was ultimately diagnosed with foacl seizures and he is currently continuing to follow up with Dr. Cervantes at [facility] Neurology for continuing management of his seizure disorder, which presently appears controlled on Lacosamide 200 mg QD Of note, his cardiology evaluation all came out negative He was seen by oncology for his pulmonary nodules (referred by Dr. Vargas) back on 05/23/2024 and they felt at the time that he does not appear to have any oncology issues and was encouraged to follow up with pulmonary medicine for his pulmonary nodules His PET scan done in April 2024 revealed that the larger nodule measuring around 12-14 mm in size had an FDG 1.5. His other nodular density measuring around 8 mm in size had an FDG also around 1. He had no significant lympha denopathy noted at the time and was reassured by pulmonary of his benign findings but patient remains very concerned about these nodules and wants to have them removed surgically as much as possible - he was therefore referred to the [facility] where he can be evaluated by thoracic surgery and be considered for VATS with wedge biopsies He was seen for consultation at the [facility] a couple of weeks ago on 07/05/2024 and after discussion regarding his treatment options, he was sent for a repeat chest CT with contrast for re-evaluation prior to proceeding with surgical resection Patient states that his chest CT was just approved earlier today and he assumed this will be scheduled as soon as possible as he is tentatively scheduled for thoracic surgery next month on 08/09/2024 -surgery will likely be a robotic assisted right lower lobe wedge resection with possible right lower lobe superior segmentectomy if intraoperative pathology reveals the presence of malignancy Additionally, patient has been seen by endocrinology here at [facility] last month for consultation regarding his diabetes and hyponatremia His diabetes is currently reasonably controlled, with a HgbA1c of 6.9% last month His serum sodium was still slightly low at 132 mmol/L on his labs done last month Endocrinology has determined that at this time, his 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 Lira for initial nephrology consultation a couple of weeks ago on 07/04/2024 and was instructed to continue with fluid restriction and increased salt intake for now, pending his upcoming thoracic surgery next month He will be sent for some follow-up labs and will be seen again in September 2024 for nephrology follow-up Patient states that he currently feels okay other than his increased anxiety about his conditions He denies any headaches or dizziness Denies any chest pains, no increased shortness of breath No nausea/vomiting, no abdominal pain No change in bowel habits noted [facility] Medical History (Updated 07/24/24 @ 19:25 by Kalpesh Luu MD) Overweight (BMI 25.0-29.9) Allergic rhinitis Insomnia Gout Mixed hyperlipidemia Diabetes mellitus Epilepsy SIADH (syndrome of inappropriate ADH production) Hyperlipidemia Type 2 diabetes mellitus Pulmonary nodule 1 cm or greater in diameter Hx of gout Surgical History History of repair of left hip joint History of plastic surgery History of right elbow replacement History of tonsillectomy Family History Paternal Grandmother Breast cancer Brother Brain tumor Maternal Aunt Breast cancer Other Mental health disorder Substance use disorder Social History Household Members: Children Housing: House Alcohol intake: current Alcohol intake frequency: a few times a month Patient Tobacco Use Status: Never used Tobacco e-Cigarette/Vaping Use: Never Used Second Hand Smoke Exposure: No service: No Current occupational status: employed 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 1. Little interest or pleasure in doing things: not at all 2. Feeling down, depressed, or hopeless: not at all 3. Trouble falling or staying asleep, or sleeping too much: more than half the days 4. Feeling tired or having little energy: more than half the days 5. Poor appetite or overeating: not at all 6. Feeling bad about yourself - or that you are a failure or have let yourself or your family down: not at all 7. Trouble concentrating on things, such as reading the newspaper or watching television: not at all 8. Moving or speaking so slowly that other people could have noticed. Or the opposite - being so fidgety or restless that you have been moving around a lot more than usual: not at all 9. Thoughts that you would be better off or of hurting yourself in some way: not at all Total score: 4 Depression Screening Interpretation: Positive Depression Screening Follow-up: Existing condition and Follow-up Visit Requested Depression Screening Done: Yes 17384 - PHQ-9 Billing: Yes Source: Developed by Drs. Clarke Bella, Lily Hale, Rogelio Dunne and colleagues, with an educational chavez from [employer]. Thrive Questionnaire Date Thrive assessed: 07/19/24 I am a: Patient What is your living situation today?: I have a steady place to live Within the past 12 months, did the food you bought not last and you didn't have the money to get more?: Never true Within the past 12 months, did you worry whether your food would run out before you got money to buy more?: Never true Do you have trouble paying for medicines?: No Do you have trouble getting transportation to medical appointments?: No Do you have trouble paying your heating and electricity bill?: No Do you have trouble taking care of your child, family member or friend?: No Do you have trouble with day-to-day activities such as bathing, preparing meals, shopping, managing finances, etc.?: No Are you currently unemployed and looking for a job?: No Are you interested in more education?: No Please select the resources that you would like help with: None Currently or been in a relationship where the following occur: No concerns reported THRIVE Score: 0 AUDIT C Alcohol Use Questionnaire (AUDIT-C) 1. How often do you have a drink containing alcohol?: 2-4 times a month 2. How many drinks containing alcohol do you have on a typical day when you are drinking?: 1 or 2 3. How often do you have six or more drinks on one occasion?: Never Total Score: 2 Score Reviewed/Action Taken: Yes BROCK-7 AMB Questionnaire BROCK-7 Date BROCK - 7 assessed: 07/19/24 Feeling nervous, anxious, or on edge: 0 = Not at all Not being able to stop or control worryin = Not at all Worrying too much about different things: 0 = Not at all Trouble relaxin = Not at all Being so restless that it is hard to sit still: 0 = Not at all Becoming easily annoyed or irritable: 0 = Not at all Feeling afraid as if something awful might happen: 0 = Not at all Total BROCK-7 score (0-4 normal; 5-9 mild; 10-14 moderate; 15-21 severe): 0 Source: Developed by Drs. Clarke Bella, Lily Hale, Rogelio Dunne and colleagues, with an educational chavez from [employer]. Review of Systems Const Denies chills, Denies fatigue, Denies fever(s) and Denies headache(s) Eyes Denies blurry vision ENT Denies dysphagia, Denies dizziness, Denies otalgia, Denies headache(s), Denies neck pain, Denies odynophagia and Denies sore throat Card Denies chest pain, Denies palpitations and Denies dyspnea Resp Denies chest congestion, Denies cough and Denies dyspnea GI Denies abdominal pain, Denies constipation, Denies dysphagia, Denies heartburn, Denies diarrhea, Denies nausea, Denies odynophagia and Denies vomiting Denies dysuria, Denies nocturia and Denies urinary frequency Musc Denies back pain and Denies neck pain Neuro Denies dizziness, Denies headache(s) and Denies convulsions (controlled) Psych Reports anxiety Endo Denies fatigue and Denies palpitations Physical exam (Primary Care) Vital Signs: Last Vital Signs Pulse 97 07/19/24 13:56 BP 122/80 07/19/24 13:56 Pulse Ox 98 07/19/24 13:56 Oxygen Delivery Method Room Air 07/19/24 13:56 BMI result Body Mass Index 28.3 Tobacco/Smoking Status: Tobacco use Status Tobacco use date assessed 07/19/24 07/19/24 13:57 Patient Tobacco Use Status Never used Tobacco 07/19/24 13:57 e-Cigarette/Vaping Use Never Used 07/19/24 13:57 PHQ-9: PHQ-9 Score PHQ-9: Total score 4 07/24/24 18:34 Depression Screening Interpretation: Positive Depression Screening Follow-up: Existing condition and Follow-up Visit Requested Thrive Assessment: Date of Thrive Assessment Date Thrive assessed 07/19/24 07/19/24 13:57 Currently or been in a relationship where the following occur: No concerns reported Const General: no acute distress and alert HENMT Ears: TM's normal bilaterally and EAC's normal Throat: Yes posterior oropharynx normal and Yes tonsils normal (no TP congestion) Neck Neck: Yes supple and No lymphadenopathy Thyroid: Thyroid normal Resp Auscultation: clear to auscultation bilaterally, no rales and no wheezes Cardio Rate: regular rate Rhythm: regular rhythm Heart sounds: no murmurs GI Palpation (GI): Soft to palpation and nontender Auscultation: normal bowel sounds General: Yes no CVA tenderness Back/Spine/Pelvis Back: no CVA tenderness Thoracic/Lumbar Spine: No lumbar spinal tenderness Skin Rashes: no rashes Extrem General: Yes no clubbing, cyanosis or edema Results Reviewed Results Reviewed: Laboratory Tests 06/10/24 06/14/24 08:00 08:52 Sodium 132 L Potassium 4.1 Creatinine 1.06 Estimated GFR > 60 Hgb A1c (Clinic) 6.9 H TSH 1.21 Laboratory Tests 03/22/24 08:08 Triglycerides 155 H Cholesterol 134 LDL Cholesterol, Calc 68 HDL Cholesterol 35 L Coding Level of Care Code Est Pt Level 4 (84565) Complex EM visit Add On G2211 Diagnoses Partial idiopathic epilepsy with seizures of localized onset, not intractable, without status epilepticus G40.009 Epilepsy type: partial idiopathic, localized onset Intractability: not intractable Status epilepticus: without status epilepticus Pulmonary nodules R91.8 Type 2 diabetes mellitus without complication, without long-term current use of insulin E11.9 Diabetes mellitus type: type 2 Diabetes mellitus terminal computer operator insulin use: without terminal computer operator use Diabetes mellitus complication status: without complication Hyponatremia E87.1 Mixed hyperlipidemia E78.2 Essential hypertension I10 Idiopathic chronic gout without tophus, unspecified site [id number].[id number] Gout site: unspecified site Gout etiology: idiopathic 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 Allergic rhinitis, unspecified seasonality, unspecified trigger J30.9 Allergic rhinitis trigger: unspecified Allergic rhinitis seasonality: unspecified Insomnia, unspecified type G47.00 Insomnia type: unspecified Overweight (BMI 25.0-29.9) E66.3 Additional Codes PHQ-9 - 97063 - PHQ-9 Billing: Yes ([id number]) Assessment & Plan Assessment & Plan (1) Epilepsy: Code(s): G40.909 - Epilepsy, unspecified, not intractable, without status epilepticus Category: Medical Qualifiers: Epilepsy type: partial idiopathic, localized onset Intractability: not intractable Status epilepticus: without status epilepticus Qualified Code(s): G40.009 - Localization-related (focal) (partial) idiopathic epilepsy and epileptic syndromes with seizures of localized onset, not intractable, without status epilepticus Plan: Patient started experiencing his seizure episodes back in March 2024, which included acute onset of episodic tremors of bilateral upper extremities associated with sensations of goose bumps, flushing, tachycardia and stuttering/difficulty getting words out CT and MRI of the brain done at the time were negative; CTA of the head and neck also came out negative although his neck angiogram revealed the presence incidentally of 2 right lower lobe pulmonary nodules, for which he is currently undergoing further workups and has surgical resection planned for next month at the [facility] on 08/09/2024 Patient states that he has not any further seizures recently since he was started on Lacosamide 200 mg QD He continues to follow-up with Dr. Cervantes of [facility] regularly (2) Pulmonary nodules: Code(s): R91.8 - Other nonspecific abnormal finding of lung field Category: Medical Plan: These were incidentally noted on CTA of the neck done at [facility] in March 2024 when patient was being worked up for his seizures PET scan done in April 2024 revealed reassuring findings Patient has been seen by Oncology and Pulmonary over the past couple of months in was reassured that his findings are likely benign but as patient was insistent that he wants to have these lesions removed surgically, he was referred to the [facility] for consideration for surgical resection He is currently undergoing further workups (repeat chest CT was just approved by his insurance earlier today) and he is tentatively scheduled for thoracic surgery for resection of these nodules next month on 08/09/2024 (3) Diabetes mellitus: Code(s): E11.9 - Type 2 diabetes mellitus without complications Category: Medical Qualifiers: Diabetes mellitus type: type 2 Diabetes mellitus fci insulin use: without terminal computer operator use Diabetes mellitus complication status: without complication Qualified Code(s): E11.9 - Type 2 diabetes mellitus without complications Plan: Patient has diabetes is currently reasonably controlled, with a HgbA1c of 6.9% last month - goal is at least <7.0% but ideally <6.5% Reinforced diabetic diet Continue Trulicity 4.5 mg SQ once a week and Metformin 1000 mg BID (4) Hyponatremia: Code(s): E87.1 - Hypo-osmolality and hyponatremia Category: Medical Plan: His serum sodium was at 132 mmol/L when last checked about a month ago He was seen and evaluated by endocrinology for this and was determined this is likely due to SIADH, and was referred to Nephrology for further management He is instructed to continue with fluid restriction up to 1 L per day and increased salt intake in his diet He will have some repeat labs done were follow-up and see Nephrology again in 3 months (5) Mixed hyperlipidemia: Code(s): E78.2 - Mixed hyperlipidemia Category: Medical Plan: Reinforced low-cholesterol diet His serum triglyceride level was still slightly elevated at 155 mg/dL when last checked in February 2024 Continue Fenofibrate 200 mg QD Will recheck his labs and fasting lipids in 3 months for follow-up (6) Essential hypertension: Code(s): I10 - Essential (primary) hypertension Category: Medical Plan: Reinforced low-sodium diet although his recent SIADH diagnosis requires him to increase his salt intake - goal is systolic BP of 120 mm or less Continue Amlodipine 10 mg QD and Losartan 50 mg QD Patient is instructed to monitor his blood pressure regularly (7) Gout: Code(s): M10.9 - Gout, unspecified Category: Medical Qualifiers: Gout site: unspecified site Gout etiology: idiopathic 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 Qualified Code(s): M1A.00X0 - Idiopathic chronic gout, unspecified site, without tophus (tophi) Plan: His serum uric acid level was normal at 5.5 mg/dl when last checked in February 2022 Patient states that he has not had any gout flare-ups in a few years now Continue Allopurinol 200 mg QD Will recheck his serum uric acid level in 3 months for follow-up (8) Allergic rhinitis: Code(s): J30.9 - Allergic rhinitis, unspecified Category: Medical Qualifiers: Allergic rhinitis trigger: unspecified Allergic rhinitis seasonality: unspecified Qualified Code(s): J30.9 - Allergic rhinitis, unspecified Plan: Continue Fluticasone 50 mcg nasal spray QD PRN (9) Insomnia: Code(s): G47.00 - Insomnia, unspecified Category: Medical Qualifiers: Insomnia type: unspecified Qualified Code(s): G47.00 - Insomnia, unsp ecified Plan: Sleep hygiene reinforced Continue Zolpidem 10 mg Q HS PRN (10) Overweight (BMI 25.0-29.9): Code(s): E66.3 - Overweight Category: Medical Plan: Reinforced diet/exercise as tolerated/lose weight Plan Follow-up in 3 months Orders: Orders Complete Blood Count Auto Diff 3 Months D64.9 - Anemia, unspecified UA CC w/rflx Micro + Cult 3 Months R30.0 - Dysuria Lacosamide 3 Months G40.009 - Localization-related (focal) (partial) idiopathic epilepsy and epileptic syndromes with seizures of localized onset, not intractable, without status epilepticus Hemoglobin A1c 3 Months E11.9 - Type 2 diabetes mellitus without complications Comprehensive [place]. Panel Fast 3 Months E78.00 - Pure hypercholesterolemia, unspecified Lipid Panel 3 Months E78.00 - Pure hypercholesterolemia, unspecified Microalbumin, Random (w Creat) 3 Months E11.9 - Type 2 diabetes mellitus with out complications TSH reflex Free T4 3 Months E78.00 - Pure hypercholesterolemia, unspecified Vitamin D 25-OH Total 3 Months E55.9 - Vitamin D deficiency, unspecified Uric Acid 3 Months M10.9 - Gout, unspecified
--- OUTSIDE RECORDS SUMMARY | 2024-07-19 16:43 | XMS_ITS | Clinical Summary ---
Author Organization [facility] Address [address] [place] [address] Care Team Providers Care Welding Machine Operator Electron Beam Name Role Phone Unavailable Primary Care Provider [...]
--- OUTSIDE RECORDS SUMMARY | 2024-07-19 16:43 | XMS_ITS | Clinical Summary ---
Author Organization [facility] Address [address] [place] [address] Phone Care Team Providers Care Racket Stringer Name Role Phone Unavailable Primary Care Provider Unavailabl e Encounters Date Type Department Care Team Description 05/12/2024 2:59 PM EST - 05/12/2024 11:59 PM EST Hospital Encounter [facility] PET Scan [address] [place] [address] Solitary pulmonary nodule Discharge Disposition: [...] 3 - 19+ 3-dose series) 02[birth year]03/1988 Pneumococcal Vaccine: 50+ Years (1 of 1 - PCV) 2019 Zoster Vaccines (1 of 2) 2019 COVID-19 Vaccine ( season) 2024 06/06/2021, 08/22/2020, 08/02/2020 Influenza Vaccine [...] patient's age to complete this topic Meningococcal B Vacine Aged Out No lo nger eligible based on patient's age to complete [...] Signed Date: 05/14/2024 04:39 ET Workstation ID: [id number] Transcribed By: Self Edit Transcribed Date: 05/13/2024 [...] Signed Date: 05/14/2024 04:39 ET Workstation ID: [id number] Transcribed By: Self Edit Transcribed Date: 05/13/2024 05:37 ET us Philippe Velazquez MD IMG NM PROCEDURES Final Re sult from Last 3 Months
== END 2024-07-19 14:53 | disposition home or self-care (01) ==
PROVIDERS: PCP Family Medicine; Visit Provider Internal Medicine
DX: G40.009 Localization-related (focal) (partial) idiopathic epilepsy and epileptic syndromes with seizures of localized onset, not intractable, without status epilepticus (principal); R91.8 Other nonspecific abnormal finding of lung field; E11.9 Type 2 diabetes mellitus without complications; E87.1 Hypo-osmolality and hyponatremia; E78.2 Mixed hyperlipidemia; I10 Essential (primary) hypertension; M1A.00X0 Idiopathic chronic gout, unspecified site, without tophus (tophi); J30.9 Allergic rhinitis, unspecified; G47.00 Insomnia, unspecified; E66.3 Overweight

== ENCOUNTER → 2024-07-19 13:36 | Outpatient (BNVA) | payer OTHER, SELFPAY | PROVIDERS: PCP Family Medicine; Visit Provider Internal Medicine | DX: G40.009 Localization-related (focal) (partial) idiopathic epilepsy and epileptic syndromes with seizures of localized onset, not intractable, without status epilepticus (principal); R91.8 Other nonspecific abnormal finding of lung field; E11.9 Type 2 diabetes mellitus without complications; E87.1 Hypo-osmolality and hyponatremia; E78.2 Mixed hyperlipidemia; I10 Essential (primary) hypertension; M1A.00X0 Idiopathic chronic gout, unspecified site, without tophus (tophi); J30.9 Allergic rhinitis, unspecified; G47.00 Insomnia, unspecified; E66.3 Overweight; Z68.28 Body mass index [BMI] 28.0-28.9, adult; Z79.84 Long term (current) use of oral hypoglycemic drugs; Z79.85 Long-term (current) use of injectable non-insulin antidiabetic drugs; Z79.899 Other long term (current) drug therapy | CPT/HCPCS: 96127 ==

== ENCOUNTER 2024-07-27 15:32 | Outpatient (REF) | payer OTHER, SELFPAY ==
--- NOTE | ~2024-07-27 | CT_ITS ---
EXAMINATION: CT CHEST WITH CONTRAST CLINICAL INFORMATION: Solitary pulmonary nodule. COMPARISON: May 16, 2024 reporting at least 3 nodules. TECHNIQUE: Multidetector volumetric CT imaging of the chest was obtained after the administration of 65 mL of Omnipaque 350 intravenous contrast without immediate adverse reactions. Axial MIP volume rendering provided. Sagittal and coronal reformatted images were obtained. This CT examination was performed using dose optimization techniques as appropriate, variously including the following: *Automated exposure control *Adjustment of mA and/or kV according to patient size (this includes techniques or standardized protocols for targeted exams where dose is matched to indication/reason for exam; i.e. extremities or head) *Use of iterative reconstruction technique. DLP: 199 mg centimeter. FINDINGS: TRIM TECHNICIAN: No hyperinflation. The upper extremities that both sides of the head. Patient's large body habitus. LUNGS: There is a 10 mm lobulated and well-defined noncalcified pulmonary nodule, superior segment right lower lung lobe abutting the major fissure. There is a 4 mm, well-defined and noncalcified pulmonary nodule in the superior segment right lower lung lobe abutting the major fissure. There is a 4 mm, well-defined and noncalcified pulmonary nodule in the right lower lung lobe abutting the major fissure. There is a 2 mm nodular groundglass in the medial aspect of the right upper lung lobe probably posterior segment. No bronchiectasis. No honeycombing. Respiratory where is patent. MEDIASTINUM: No lymphadenopathy, mediastinum or perihilar. No aneurysm or dissection, thoracic aorta. Calcified plaques in the thoracic aortic arch near the ligamentous arteriosum. Focal calcification in the origin of the right coronary artery. No pericardial effusion. PLEURA: No pleural effusion. No pneumothorax. AXILLA: No lymphadenopathy. UPPER ABDOMEN: Decreased attenuation of the liver parenchyma. OSSEOUS STRUCTURES: Multilevel thoracolumbar spondylosis, mild. S-shaped curvature of the upper thoracic spine. CT/CT chest w IV con IMPRESSION: There are 3, less than 10 mm noncalcified well-circumscribed pulmonary nodules, right lower lung lobe stable to slightly smaller since prior examination. Nonspecific 2 mm nodular groundglass, right upper lung lobe. Fleischner criteria: Low risk patients: Follow-up CT at 3-six-month, then consider CT at 18-24 months High risk patients: Follow-up CT at 3-six-month, then at 18-24 months. No acute airspace disease. Hepatic steatosis.. Fleischner guidelines were followed. Electronically signed by: Junior Jones MD 07/28/2024 08:11 AM EILEEN
[2024-07-27] MEDS: iohexoL 350 MG/ML 100 ML INFUS..BTL IV (16:51)
--- OUTSIDE RECORDS SUMMARY | 2024-07-27 18:47 | XMS_ITS | Clinical Summary ---
Author Organization [facility] Address [address] [place] [address] Care Team Providers Care Medicare Compliance Auditor Name Role Phone Unavailable Primary Care [...]
--- OUTSIDE RECORDS SUMMARY | 2024-07-27 18:47 | XMS_ITS | Clinical Summary ---
Author Organization [facility] Address [address] [place] [address] Phone Care Team Providers Care Keeper Helper Name Role Phone Unavailable Primary Care Provider Unavailabl e Encounters Date Type Department Care Team Description 05/12/2024 2:59 PM EST - 05/12/2024 11:59 PM EST Hospital Encounter [facility] PET Scan [address] [place] [address] Solitary pulmonary nodule Discharge Disposition: [...] Signed Date: 05/14/2024 04:39 ET Workstation ID: [id number] Transcribed By: Self Edit Transcribed Date: 05/13/2024 [...] Signed Date: 05/14/2024 04:39 ET Workstation ID: [id number] Transcribed By: Self Edit Transcribed Date: 05/13/2024 05:37 ET us Philippe Velazquez MD IMG NM PROCEDURES Final Re sult from Last 3 Months
[2024-07-28 08:39] LABS: Creatinine POC 0.6 mg/dL (0.5-1.4); GFR POC > 60
== END 2024-07-27 15:33 | disposition home or self-care (01) ==
LOC: HO.CT 15:32
PROVIDERS: PCP Internal Medicine; Visit Provider Thoracic Surgery (Cardiothoracic Vascular Surgery)
DX: R91.1 Solitary pulmonary nodule (principal)
CPT/HCPCS: 71260; 82565; Q9967

== ENCOUNTER → 2024-07-27 15:37 | Outpatient (BNV) | payer OTHER, SELFPAY | PROVIDERS: PCP Internal Medicine; Visit Provider Radiology Diagnostic Radiology | DX: R91.1 Solitary pulmonary nodule (principal) | CPT/HCPCS: 71260 ==

== ENCOUNTER 2024-09-30 16:06 | Outpatient (AMB) | payer OTHER, SELFPAY ==
--- OUTSIDE RECORDS SUMMARY | 2024-09-30 16:08 | XMS_ITS | Clinical Summary ---
Author Organization [facility] Address [address] [place] [address] Phone Care Team Providers Care Mass Spec Name Role Phone Unavailable Primary Care Provider Unavailabl e Social History Tobacco Use Types Packs/Day Years [...] Vaccine ( season) 2024 06/06/2021, 08/22/2020, 08/02/2020 Cholesterol Screening (Lipid Panel) 05/12/2024 Colorectal Cancer Screening: Colonoscopy 05/12/2024 Depression Screening 05/12/2024 HIV Screening 05/12/2024 Hepatitis C Screening 05/12/2024 Social Influencers of Health Screening 05/12/2024 Influenza Vaccine (Season Ended) 2025 02/28/2020, 03/18/2019, 03/31/2018, Additional history exists HIB Vaccines Aged Out No longer eligi [...] age to complete this topic Meningococcal B Vaccine Aged Out No l onger eligible based on patient's age to complete [...]
[2024-09-30 16:10] VITALS: BP 110/68; PULSE 93; O2SAT 98; BMI 29.0
--- NOTE | 2024-09-30 16:10 | MHC.PC.OV ---
Vital Signs 09/30/24 16:10 Height 6 ft 3 in Weight 232 lb BMI 29.0 BP 110/68 Blood Pressure Location Lt brachial Position Sitting Pulse 93 Pulse Source Pulse Oximeter Pulse Oximetry (%) 98 Oxygen Delivery Method Room Air Intake Visit Reasons: right mid to upper quadrant pain Relay Tester Helper Required: No Accompanied by: Self / Same As Patient Allergies clarithromycin [From BIAXIN] Allergy (Severe, Verified 09/30/24 16:27) ANAPHYLAXIS ENVIRONMENTAL Allergy (Intermediate, Uncoded 09/30/24 16:27) ITCHY EYES RUNNY NOSE Medication List - Last Reconciled 09/30/24 by Kalpesh Luu MD allopurinol 200 mg (2 x 100 mg) PO DAILY 90 days amlodipine 10 mg PO DAILY 90 days blood sugar diagnostic (FreeStyle Lite Strips) DX: E11.9, test blood sugar once a day, 90 days blood-glucose meter (FreeStyle Lite Meter kit) DX: E11.9, test blood sugar once a day, duration 999 days blood-glucose sensor (Datto G7 Sensor device) As directed every 10 days dulaglutide 4.5 mg (0.5 mL) subcut QWEEK 28 days fenofibrate micronized 200 mg PO DAILY 30 days fluticasone propionate 50 mcg/actuation (Flonase Allergy Relief) 1 spray intranasal Q12H 30 days lacosamide 200 mg PO DAILY lancets (FreeStyle Lancets) As directed losartan 50 mg PO DAILY 90 days metformin 1,000 mg PO BIDWMEAL zolpidem 10 mg PO BEDTIME PRN 30 days Tobacco use date assessed: 09/30/24 Dental Screening Dental Screen Date: 09/30/24 Did you have a dental visit in the last 12 months?: Yes Did you have a dental problem in the last 6 months where you did not have access to dental care?: No Was dental information given to patient?: Patient has dentist HPI right mid to upper quadrant pain HPI Details Patient comes in today for evaluation of a persistent/constant right-sided abdominal pain, which he states has been going on for the past 10 to 12 days now Relates (+) occasional nausea but denies any vomiting States that he has been intentionally cutting back on the amount of food that he has been eating lately as he did not want to risk aggravating his right-sided abdominal pain He denies any recent change in his bowel habits although since he has been cutting back on how much he eats lately, has also not been moving his bowels as often as he did in the past Patient just had robotic thoracoscopy with right lower lobe segmentectomy and mediastinal lymph node dissection done at the [facility] in [place] a few weeks ago on 08/09/2024 and he is concerned that his current symptoms may have something to do with his recent lung procedure Patient denies any fever or chills Denies any exertional chest pains or increased shortness of breath [facility] Medical History (Updated 09/30/24 @ 16:33 by Kalpesh Luu MD) Overweight (BMI 25.0-29.9) Allergic rhinitis Insomnia Gout Mixed hyperlipidemia Diabetes mellitus Epilepsy SIADH (syndrome of inappropriate ADH production) Hyperlipidemia Type 2 diabetes mellitus Pulmonary nodule 1 cm or greater in diameter Hx of gout Surgical History History of repair of left hip joint History of plastic surgery History of right elbow replacement History of tonsillectomy Family History Paternal Grandmother Breast cancer Brother Brain tumor Maternal Aunt Breast cancer Other Mental health disorder Substance use disorder Social History Household Members: Children Housing: House Alcohol intake: current Alcohol intake frequency: a few times a month Patient Tobacco Use Status: Never used Tobacco e-Cigarette/Vaping Use: Never Used Second Hand Smoke Exposure: No service: No Current occupational status: employed 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 1. Little interest or pleasure in doing things: not at all 2. Feeling down, depressed, or hopeless: not at all 3. Trouble falling or staying asleep, or sleeping too much: more than half the days 4. Feeling tired or having little energy: more than half the days 5. Poor appetite or overeating: not at all 6. Feeling bad about yourself - or that you are a failure or have let yourself or your family down: not at all 7. Trouble concentrating on things, such as reading the newspaper or watching television: not at all 8. Moving or speaking so slowly that other people could have noticed. Or the opposite - being so fidgety or restless that you have been moving around a lot more than usual: not at all 9. Thoughts that you would be better off or of hurting yourself in some way: not at all Total score: 4 Depression Screening Interpretation: Positive Depression Screening Follow-up: Existing condition and Follow-up Visit Requested Depression Screening Done: Yes 07345 - PHQ-9 Billing: Yes Source: Developed by Drs. Clarke Bella, Lily Hale, Rogelio Dunne and colleagues, with an educational chavez from [employer] Thrive Questionnaire Date Thrive assessed: 09/30/24 I am a: Patient What is your living situation today?: I have a steady place to live Within the past 12 months, did the food you bought not last and you didn't have the money to get more?: Never true Within the past 12 months, did you worry whether your food would run out before you got money to buy more?: Never true Do you have trouble paying for medicines?: No Do you have trouble getting transportation to medical appointments?: No Do you have trouble paying your heating and electricity bill?: No Do you have trouble taking care of your child, family member or friend?: No Do you have trouble with day-to-day activities such as bathing, preparing meals, shopping, managing finances, etc.?: No Are you currently unemployed and looking for a job?: No Are you interested in more education?: No Please select the resources that you would like help with: None Currently or been in a relationship where the following occur: No concerns reported THRIVE Score: 0 AUDIT C Alcohol Use Questionnaire (AUDIT-C) 1. How often do you have a drink containing alcohol?: 2-4 times a month 2. How many drinks containing alcohol do you have on a typical day when you are drinking?: 1 or 2 3. How often do you have six or more drinks on one occasion?: Never Total Score: 2 Score Reviewed/Action Taken: Yes BROCK-7 AMB Questionnaire BROCK-7 Date BROCK - 7 assessed: 07/19/24 Source: Developed by Drs. Clarke Bella, Lily Hale, Rogelio Dunne and colleagues, with an educational chavez from [employer] Review of Systems Const Denies chills, Denies fatigue, Denies fever(s) and Denies headache(s) ENT Denies dysphagia, Denies dizziness, Denies otalgia, Denies headache(s), Denies neck pain, Denies odynophagia and Denies sore throat Card Denies chest pain, Denies palpitations and Denies dyspnea Resp Denies chest congestion, Denies cough and Denies dyspnea GI Reports abdominal pain (right-sided - see HPI for details), Denies constipation, Denies dysphagia, Denies heartburn, Denies diarrhea, Reports nausea (on and off), Denies odynophagia and Denies vomiting Denies difficulty urinating, Denies dysuria, Denies nocturia and Denies urinary frequency Musc Denies back pain and Denies neck pain Neuro Denies dizziness, Denies headache(s) and Denies convulsions (controlled) Psych Reports anxiety Endo Denies fatigue and Denies palpitations Physical exam (Primary Care) Vital Signs: Last Vital Signs Pulse 93 09/30/24 16:10 BP 110/68 09/30/24 16:10 Pulse Ox 98 09/30/24 16:10 Oxygen Delivery Method Room Air 09/30/24 16:10 BMI result Body Mass Index 29.0 Tobacco/Smoking Status: Tobacco use Status Tobacco use date assessed 09/30/24 09/30/24 16:13 Patient Tobacco Use Status Never used Tobacco 09/30/24 16:11 e-Cigarette/Vaping Use Never Used 09/30/24 16:11 PHQ-9: PHQ-9 Score PHQ-9: Total score 4 09/30/24 16:29 Depression Screening Interpretation: Positive Depression Screening Follow-up: Existing condition and Follow-up Visit Requested Thrive Assessment: Date of Thrive Assessment Date Thrive assessed 09/30/24 09/30/24 16:13 Currently or been in a relationship where the following occur: No concerns reported Const General: no acute distress, alert and anxious HENMT Throat: Yes posterior oropharynx normal and Yes tonsils normal (no TP congestion) Neck Neck: Yes supple and No lymphadenopathy Thyroid: Thyroid normal Resp Auscultation: clear to auscultation bilaterally, no rales and no wheezes Cardio Rate: regular rate Rhythm: regular rhythm Heart sounds: no murmurs GI Palpation (GI): Tenderness to palpation present (GI) (over the entire right side of the abdomen, especially over the upper half), Guarding due to palpation present (GI) and No Rebound tenderness present Auscultation: normal bowel sounds General: Yes no CVA tenderness Back/Spine/Pelvis Back: no CVA tenderness Skin Rashes: no rashes Extrem General: Yes no clubbing, cyanosis or edema Coding Level of Care Code Est Pt Level 4 (21374) Diagnoses Right sided abdominal pain R10.9 Pulmonary nodules R91.8 Additional Codes PHQ-9 - 02008 - PHQ-9 Billing: Yes ([id number]) Assessment & Plan Assessment & Plan (1) Right sided abdominal pain: Code(s): R10.9 - Unspecified abdominal pain Category: Medical Plan: Patient does not wish to go to the ER and prefers to get some tests done on an outpatient basis as much as possible Will send him for some labs and abdominal x-rays ANASTACIA for further evaluation - patient states that he will try to get these done tomorrow morning as the lab is closed already at this time (late Thursday afternoon) Will also try to have him get an urgent abdominal US for further evaluation - he is advised that he will be contacted when they are scheduling this for him Have advised patient that we will reach out to him as soon as his lab and x-ray reports are available although this may likely be sometime Thursday morning of next week Advised that if there are any concerning results or findings over the weekend, the on-call doctor will likely give him a call as he or she will definitely be alerted by the lab or radiology for any urgent or concerning findings on his tests Have also advised patient that over the weekend, if he feels that his symptoms are getting worse and/or becoming unbearable, then he should proceed to the nearest ER [facility]AC[facility] for further evaluation (2) Pulmonary nodules: Code(s): R91.8 - Other nonspecific abnormal finding of lung field Category: Medical Plan: These were incidentally noted on CTA of the neck done at [facility] in March 2024 when patient was being worked up for his seizures PET scan done in April 2024 revealed reassuring findings Patient was seen by Oncology and Pulmonary for these and was reassured that his findings are likely benign but patient insisted on having these lesions removed (surgically) and he ultimately underwent robotic thoracoscopy and right lower lobe segmentectomy at the [facility] in [place], [place] a few weeks ago on 08/09/2024 Patient is currently concerned as to whether his recent pulmonary procedure has anything to do with his current right-sided abdominal symptoms Will send him as well for chest x-rays for further evaluation Plan Follow up as scheduled next month Orders: Orders Erythrocyte Sedimentation Rate 09/30/24 R10.9 - Unspecified abdominal pain Lipase 09/30/24 R10.9 - Unspecified abdominal pain US abdomen complete 09/30/24 R10.9 - Unspecified abdominal pain XR abdomen 3V 09/30/24 R10.9 - Unspecified abdominal pain C Reactive Protein 09/30/24 R10.9 - Unspecified abdominal pain Complete Blood Count Auto Diff 09/30/24 R10.9 - Unspecified abdominal pain Comprehensive Met. Panel 09/30/24 R10.9 - Unspecified abdominal pain XR chest 2V Today Z90.2 - Acquired absence of lung [part of]
== END 2024-09-30 16:38 | disposition home or self-care (01) ==
LOC: HO.HMCH 16:06
PROVIDERS: PCP Internal Medicine; Visit Provider Internal Medicine
DX: R10.9 Unspecified abdominal pain (principal); R91.8 Other nonspecific abnormal finding of lung field

== ENCOUNTER → 2024-09-30 16:06 | Outpatient (BNVA) | payer OTHER, SELFPAY | PROVIDERS: PCP Internal Medicine; Visit Provider Internal Medicine | DX: R10.9 Unspecified abdominal pain (principal); R91.8 Other nonspecific abnormal finding of lung field | CPT/HCPCS: 96127 ==

== ENCOUNTER 2024-10-01 10:37 | Outpatient (REF) | payer OTHER, SELFPAY ==
--- NOTE | ~2024-10-01 | XR_ITS ---
CLINICAL HISTORY: Z90.2 - Acquired absence of lung [part of] --- Additional Notes or Special Instruct ions: s p right lower lobe segementectomy on 08 09 2024 2 view chest x-ray Comparison: CT/SR - CT CHEST W IV CON - 07/27/24 16:17 EST Findings: Mild airspace opacities within the right perihilar and infrahilar region. Left lung is clear. No consolidation or pleural effusion. Normal size heart. No acute fracture. IMPRESSION: Mild atelectasis and/or infiltrate within the right perihilar and infrahilar regions. This document has been electronically signed by: Diana Mora MD on 10/03/2024 13:59:46
--- NOTE | ~2024-10-01 | XR_ITS ---
CLINICAL HISTORY: R10.9 - Unspecified abdominal pain 2 view abdomen Comparison: None Findings: Nonspecific bowel gas pattern. Slight increased stool quantity. No abnormal calcifications. No pneumoperitoneum or pneumatosis. Renal psoas margins are normal. No organomegaly. No radiopaque calculi. Osseous structures intact. Impression: 1. Slight increased stool burden. This document has been electronically signed by: Damon Andrew MD on 10/01/2024 11:38:54
--- OUTSIDE RECORDS SUMMARY | 2024-10-01 10:39 | XMS_ITS | Clinical Summary ---
Author Organization [facility] Address [address] [place] [address] Phone Care Team Providers Care Industrial Hygienist Name Role Phone Unavailable Primary Care Provider [...]
[2024-10-01 10:59] LABS: MANUAL DIFF FLAG NO
[2024-10-01 11:06] LABS: Basophils Absolute Auto 0.1 X10*3/uL (0.0-0.2); Basophils Percent Auto 0.9 % (0-2); Eosinophils Absolute Auto 0.4 X10*3/uL (0.0-0.4); Eosinophils Percent Auto 7.4 % (0-4); Hematocrit 40.3 % (42.0-52.0); Hemoglobin 14.6 g/dl (14.0-18.0); Imm Gran Abs Auto 0.09 X10*3/uL (0.00-0.03); Imm Gran Pct Auto 1.6 % (0.0-0.4); Lymphocytes Absolute Auto 1.2 X10*3/uL (1.2-4.9); Lymphocytes Percent Auto 20.7 % (20-40); Mean Corpuscular HGB Conc 36.2 g/dl (31.0-36.0); Mean Corpuscular Hemoglobin 32.1 pg (27.0-33.0); Mean Corpuscular Volume 88.6 fL (80.0-98.0); Mean Platelet Volume 9.1 fL (9.4-12.4); Monocytes Absolute Auto 0.8 X10*3/uL (0.1-1.2); Monocytes Percent Auto 13.8 % (2-11); Neutrophils Absolute Auto 3.2 x10*3/uL (2.0-8.3); Neutrophils Percent Auto 55.6 % (45-73); Platelet Count 355 X10*3/uL (160-400); Red Blood Count 4.55 X10*6/uL (4.60-5.80); Red Cell Distribution Width 11.5 % (11.0-16.0); White Blood Count 5.8 X10*3/uL (4.8-10.8)
[2024-10-01 11:24] LABS: Estimated Average Glucose 154 mg/dL; Hemoglobin A1C 203.3944 umol/L; Total Hemoglobin (HGBA1C) 3865.5697 umol/L
[2024-10-01 11:25] LABS: Appearance Urine Clear; Color Urine Yellow; Glucose Urine UA 500 mg/dL (Negative); Leukocyte Esterase Urine Negative (Negative); Nitrite Urine Negative (Negative); Urine Blood Negative (Negative); Urine Ketones Trace mg/dL (Negative); Urine Protein Negative (Neg-Trace)
[2024-10-01 11:42] LABS: Potassium Urine Random 32.7 mmol/L
[2024-10-01 11:46] LABS: Erythrocyte Sedimentation Rate 8 MM/HR (0-15)
[2024-10-01 11:48] LABS: Alanine Aminotransferase 50 U/L (0-40); Albumin Level 4.5 g/dL (3.5-5.0); Alkaline Phosphatase 54 U/L (39-117); Anion Gap 16 (12-20); Aspartate Amino Transferase 36 U/L (5-37); Bilirubin Total 0.4 mg/dL (0.0-1.0); Blood Urea Nitrogen 8 mg/dL (9-16); C Reactive Protein 0.32 mg/dL (< or = 0.50); Calcium 9.7 mg/dL (8.4-10.2); Carbon Dioxide 21 mmol/L (22-29); Chloride 98 mmol/L (96-108); Estimated Glomerular Filt Rate > 60; Glucose Random 220 mg/dL (60-115); Lipase 39 U/L (8-78); Potassium 4.1 mmol/L (3.3-5.1); Sodium 131 mmol/L (135-145); Total Protein 7.1 g/dL (6.5-8.0)
[2024-10-01 11:50] LABS: Osmolality Urine 542 mosm/kg (373-1093)
[2024-10-01 11:50] LABS: Osmolality, Serum 279 mosm/kg (281-305)
[2024-10-01 11:52] LABS: Anion Gap 15 (12-20); Blood Urea Nitrogen 8 mg/dL (9-16); Calcium 9.7 mg/dL (8.4-10.2); Carbon Dioxide 22 mmol/L (22-29); Chloride 97 mmol/L (96-108); Estimated Glomerular Filt Rate > 60; Glucose Random 222 mg/dL (60-115); Potassium 4.1 mmol/L (3.3-5.1); Sodium 130 mmol/L (135-145)
[2024-10-01 11:58] LABS: Creatinine Urine 105.87 mg/dL; Total Protein Urine Random < 7 mg/dL (<12)
[2024-10-01 12:08] LABS: Cortisol Random 13.4 ug/dL
[2024-10-01 12:11] LABS: TSH reflex Free T4 1.26 uIU/mL (0.32-4.0)
== END 2024-10-01 10:38 | disposition home or self-care (01) ==
LOC: HO.XRAY 10:37
PROVIDERS: Internal Medicine Nephrology; Student in an Organized Health Care Education/Training Program; PCP Internal Medicine; Visit Provider Internal Medicine
DX: R10.9 Unspecified abdominal pain (principal); E11.9 Type 2 diabetes mellitus without complications; D64.9 Anemia, unspecified; R30.0 Dysuria; I10 Essential (primary) hypertension; E87.1 Hypo-osmolality and hyponatremia; Z90.2 Acquired absence of lung [part of]
CPT/HCPCS: 36415; 71046; 74021; 80048; 80053; 81003; 82533; 82570; 83036; 83690; 83930; 83935; 84133; 84156; 84300; 84443; 85025; 85652; 86140

== ENCOUNTER → 2024-10-01 11:00 | Outpatient (BNV) | payer OTHER, SELFPAY | PROVIDERS: PCP Internal Medicine; Visit Provider Radiology Diagnostic Radiology | DX: R91.8 Other nonspecific abnormal finding of lung field (principal) | CPT/HCPCS: 71046; 74021 ==

== ENCOUNTER 2024-10-03 11:23 | Outpatient (REF) | payer OTHER, SELFPAY ==
--- NOTE | ~2024-10-03 | US_ITS ---
EXAMINATION: US ABDOMEN COMPLETE CLINICAL INFORMATION: Unspecified abdominal pain.. COMPARISON: 06/19/2022. TECHNIQUE: Real-time imaging of the abdominal viscera. FINDINGS: PANCREAS: Visualized portions are unremarkable. ABDOMINAL AORTA: The proximal aspect is obscured. The mid, and distal segments are normal in caliber. INFERIOR VENA CAVA: Visualized portions are normal. LIVER: Liver is enlarged. The right hepatic lobe measures 19.5 cm in length. The liver contour is normal. The parenchymal echogenicity is diffusely somewhat increased and mildly coarsened, suggestive of fatty infiltration with possible hepatocellular disease. No focal hepatic lesion. There is no intrahepatic biliary duct dilatation seen. GALLBLADDER: Somewhat difficult to visualize due to artifact from liver. The gallbladder is physiologically distended without evidence of stones, sludge, polyps, wall thickening or pericholecystic fluid. There was right upper quadrant tenderness extending into the midline. COMMON BILE DUCT: Normal in caliber measuring 0.4 cm in diameter. RIGHT KIDNEY: No hydronephrosis. No renal calculi or focal parenchymal lesions. The kidney measures 11.0 cm in maximum dimension. LEFT KIDNEY: No hydronephrosis. No renal calculi or focal parenchymal lesions. The kidney measures 11.2 cm in maximum dimension. SPLEEN: The spleen measures 11.0 cm in maximum dimension. FREE FLUID: None. US/US abdomen complete IMPRESSION: 1. Mild hepatomegaly, with diffusely coarsened and increased echogenicity, suggesting fatty infiltration and/or hepatocellular disease. No suspicious focal lesion. 2. Gallbladder demonstrates no discrete abnormality. 3. The technologist did note tenderness in the right upper quadrant extending over the midline. 4. No biliary dilatation. 5. Normal bilateral kidneys and spleen. Should there be continued clinical concern, CT recommended. Electronically signed by: Zhou Garber MD 10/03/2024 12:32 PM EDT
--- OUTSIDE RECORDS SUMMARY | 2024-10-03 12:14 | XMS_ITS | Clinical Summary ---
Author Organization [facility] Address [address] [place] [address] Care Team Providers Care Benefits Representative Name Role Phone Unavailable Primary Care Provider [...]
--- OUTSIDE RECORDS SUMMARY | 2024-10-03 12:14 | XMS_ITS | Clinical Summary ---
Author Organization [facility] Address [address] [place] [address] Phone Care Team Providers Care Human Resources Executive Assistant Name Role Phone Unavailable Primary Care Provider [...]
== END 2024-10-03 11:24 | disposition home or self-care (01) ==
LOC: HO.US 11:23
PROVIDERS: PCP Internal Medicine; Visit Provider Internal Medicine
DX: R10.9 Unspecified abdominal pain (principal)
CPT/HCPCS: 76700

== ENCOUNTER → 2024-10-03 11:25 | Outpatient (BNV) | payer OTHER, SELFPAY | PROVIDERS: PCP Internal Medicine; Visit Provider Radiology Diagnostic Radiology | DX: R16.0 Hepatomegaly, not elsewhere classified (principal); R10.9 Unspecified abdominal pain | CPT/HCPCS: 76700 ==

== ENCOUNTER 2024-10-10 11:34 | Emergency (ER) | payer OTHER, SELFPAY ==
--- NOTE | ~2024-10-10 | XR_ITS ---
CLINICAL HISTORY: RUQ pain. prior lung surg 2 views of the chest. Comparison 10/01/2024. Findings: Heart size is normal. There is no consolidation. No pleural effusion is seen. Impression: No consolidation. Ill-defined nodular density right mid lung similar to previous. This has been noted on prior CTs. This document has been electronically signed by: García Hendrix MD on 10/10/2024 19:01:29
--- NOTE | ~2024-10-10 | CT_ITS ---
CLINICAL HISTORY: RUQ epigastric pain, N V CT of the abdomen and pelvis utilizing intravenous contrast. No comparison. Findings: There is fatty infiltration of the liver. The gallbladder is unremarkable. No biliary ductal dilatation. No hydronephrosis. The spleen and pancreas are unremarkable. No abdominal aortic aneurysm. There is mild atherosclerotic disease. The appendix is unremarkable. There is no bowel obstruction. The bladder is nondilated. No free fluid is seen in the pelvis. There is mild scoliosis with prominent degenerative changes in the spine. Impression: The gallbladder is unremarkable. No diverticulitis or bowel obstruction. There is mild nonspecific bladder wall thickening that may be incidental. Mild cystitis is technically a possibility. This document has been electronically signed by: García Hendrix MD on 10/10/2024 18:06:05
--- NOTE | 2024-10-10 11:38 | ED.GENADULT ---
HPI - General Adult General Chief complaint: Abdominal Pain Stated complaint: abd pain nausea vomiting Time Seen by Provider: 10/10/24 16:43 Source: patient, family, RN notes reviewed and old records reviewed Mode of arrival: ambulatory History of Present Illness ED Provider: Pauline Sher PA-C HPI narrative: 54-year-old male with a past medical history gout, insomnia, epilepsy, diabetes, HLD, s/p robotic thoracoscopy with right lower lobe segmentectomy and mediastinal lymph node dissection done at [facility] in [place] on 08/09/2024, presenting to the ED complaining of acute on chronic RUQ/epigastric abdominal pain wrapping around back with associated nausea and vomiting x2 weeks. Reports pain worse with eating/drinking, admits to decreased p.o. intake. Admits saw his PCP on 09/30/2024 had RUQ ultrasound showing some mild hepatomegaly otherwise unremarkable, outpatient CT ordered however patient states he can not wait until this is scheduled secondary to pain. Denies fever, chills, dysuria/hematuria, diarrhea, injury, trauma, fall Related Data Home Medications ?Medication ?Instructions ?Recorded ?Confirmed lacosamide 200 mg tablet 200 mg PO DAILY 04/29/24 09/30/24 Previous Rx's ?Medication ?Instructions ?Recorded blood sugar diagnostic (FreeStyle #100 ea 10/01/22 Lite Strips) blood-glucose meter (FreeStyle #1 ea 10/01/22 Lite Meter kit) lancets 28 gauge (FreeStyle #100 ea 10/01/22 Lancets) allopurinol 100 mg tablet 200 mg (2 x 100 mg) PO DAILY 90 08/31/23 days #180 tabs fluticasone propionate 50 1 spray intranasal Q12H 30 days 03/28/24 mcg/actuation nasal #16 grams spray,suspension (Flonase Allergy Relief) amlodipine 10 mg tablet 10 mg PO DAILY 90 days #90 tabs 05/26/24 losartan 50 mg tablet 50 mg PO DAILY 90 days #90 tabs 05/26/24 blood-glucose sensor ([employer] G7 #6 ea 06/20/24 Sensor device) dulaglutide 4.5 mg/0.5 mL 4.5 mg (0.5 mL) subcut QWEEK 28 06/20/24 subcutaneous pen injector days #6 mL metformin 1,000 mg tablet 1,000 mg PO BIDWMEAL #180 tabs 06/20/24 fenofibrate micronized 200 mg 200 mg PO DAILY 30 days #30 caps 10/04/24 capsule zolpidem 10 mg tablet 10 mg PO BEDTIME PRN sleep 30 days 10/04/24 #12 tabs Allergies Allergy/AdvReac Type Severity Reaction Status Date / Time clarithromycin [From BIAXIN] Allergy Severe ANAPHYLAXIS Verified 10/10/24 11:42 ENVIRONMENTAL Allergy Intermediate ITCHY EYES Uncoded 09/30/24 16:27 RUNNY NOSE Review of Systems Review of Systems: Yes all other systems are reviewed and are negative Constitutional: Constitutional: Reports as per [facility] Past Medical History Attestation statement: The following information was validated with the patient. Source: old records reviewed Medical History Overweight (BMI 25.0-29.9) Allergic rhinitis Insomnia Gout Mixed hyperlipidemia Diabetes mellitus Epilepsy SIADH (syndrome of inappropriate ADH production) Hyperlipidemia Type 2 diabetes mellitus Pulmonary nodule 1 cm or greater in diameter Hx of gout Surgical History History of repair of left hip joint History of plastic surgery History of right elbow replacement History of tonsillectomy Family History Family History Paternal Grandmother Breast cancer Brother Brain tumor Maternal Aunt Breast cancer Other Mental health disorder Substance use disorder Social History Social History Household Members: Children Housing: House Alcohol intake: current Alcohol intake frequency: a few times a month Patient Tobacco Use Status: Never used Tobacco e-Cigarette/Vaping Use: Never Used Second Hand Smoke Exposure: No Advance Directives: No Advance Directives Information Provided: Yes service: No Current occupational status: employed 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 [employer] Current occupational exposures/hazards: No Gender identity: Male Cognitive needs: No Hearing needs: No Vision needs: No (reading glasses) Physical Exam ED Vital Signs: Vital Signs - 24 hr 10/10/24 11:39 10/10/24 17:51 10/10/24 19:12 Temperature 97.0 F 97.5 F Pulse Rate 96 84 78 Respiratory Rate 18 16 18 Blood Pressure 126/78 132/80 116/79 Pulse Oximetry 99 98 97 Oxygen Delivery Method Room Air Room Air Room Air BMI result Body Mass Index 28.4 Const General: cooperative, healthy appearing and no acute distress Orientation/consciousness: patient oriented x3 Limitations: no limitations HENMT Head: Yes normal to inspection and Yes atraumatic Ears: hearing grossly normal bilaterally General nose exam: Normal external nose present Face and sinus: Yes normal facial exam Eyes General: appearance normal, both eyes and all related structures EOM: EOMs intact bilaterally Neck Neck: Yes normal visual inspection and Yes no meningeal signs Chest Other: Old surgical scars noted to right posterior lateral chest wall Resp Effort & Inspection: normal respiratory effort and no respiratory distress Auscultation: clear to auscultation bilaterally Cardio Rate: regular rate Heart sounds: S1 normal heart sound present and S2 normal heart sound present GI Inspection: Yes normal to inspection Palpation (GI): Soft to palpation, Tenderness to palpation present (GI) in the epigastrum and in the RUQ; with no rebound tenderness, no guarding and not rigid General: Yes no CVA tenderness Back/Spine/Pelvis Back: no CVA tenderness Skin Rashes: no rashes Wounds: no wounds Neuro General: patient oriented x3, tone normal and no meningeal signs Cranial nerves: Yes CN's II-XII intact bilaterally Gait exam (Neuro): Normal gait present Extrem General: Yes normal to inspection Course Course Course Narrative: RME performed by Karine Soto PA-C. Patient is a 54 year old assigned male at presenting to the emergency department with upper abdominal pain. Patient states that he is having upper abdominal pain that wraps around to his back with nausea and an episode of vomiting. Patient states that he had 2 non-cancerous nodules removed from his right lung in July of 2024 by a surgeon at [place]. Patient had an US done on 10/03/[address] that was [address] CT ordered but isn't until later this month. Detailed physical exam and review of systems are deferred to the security auditor. EKG, labs, imaging, and swabs ordered. Patient placed back in the waiting room pending room availability and results. -1645--no leukocytosis. Hyponatremic at baseline. Labs otherwise reassuring -magnesium low at 1.4 > 2g IV repletion ordered. AST mildly elevated. ALT chronically elevated. Troponin negative -viral testing negative CT abdomen pelvis w IV con Impression: The gallbladder is unremarkable. No diverticulitis or bowel obstruction. There is mild nonspecific bladder wall thickening that may be incidental. Mild cystitis is technically a possibility. >1809--case discussed with Dr. Ramirez, will obtain chest x-ray for further eval. ED care transferred to SENIOR MARKETING ENGINEER Faheem pending chest x-ray, UA and re-evaluation. Reevaluation(s) Reevaluation #1: Shahla Cabrera NP - Date: 10/10/2024 - Time: 20:00 chest x-ray was out acute pathology. urinalysis is without evidence of infection. Results were discussed with the patient. Given his persistent pain with the past 2 weeks, poor oral intake, we discussed potential hospital admission, patient adamantly declines interest in hospital admission at this time. Feel that he would most benefit from furtherevaluation with Gastroenterology, he was provided with a referral but states that he was speak with his primary care doctor first as he believes his insurance will require a referral from them directly. He plans to contact their office tomorrow. We discussed strict return precautions. All questions answered. Stable for discharge 2 views of the chest. Comparison 10/01/2024. Findings: Heart size is normal. There is no consolidation. No pleural effusion is seen. Impression: No consolidation. Ill-defined nodular density right mid lung similar to previous. This has been noted on prior CTs. Medications Administered Discontinued Medications Generic Name Dose Route Start Last Admin Trade Name Freq PRN Reason Stop Dose Admin Magnesium Sulfate 2 gm in 50 mls @ 25 mls/hr 10/10/24 16:47 10/10/24 17:43 Magnesium Sulfate/H2o IV 10/10/24 18:46 25 mls/hr ONCE ONE Administration Sodium Chloride 1,000 mls @ 999 mls/hr 10/10/24 17:00 10/10/24 17:43 Ns IV 10/10/24 18:00 999 mls/hr .Q1H1M SANTIAGO Administration Iohexol 85 ml 10/10/24 17:12 10/10/24 17:13 Iohexol 350 Mg/Ml 100 Ml Infus..Btl IV 10/10/24 17:13 85 ml ONCE ONE Administration Medical Decision Making Medical Decision Making MDM Narrative: 54-year-old male with a past medical history gout, insomnia, epilepsy, diabetes, HLD, s/p robotic thoracoscopy with right lower lobe segmentectomy and mediastinal lymph node dissection done at [facility] in [place] on 08/09/2024, presenting to the ED complaining of acute on chronic RUQ/epigastric abdominal pain wrapping around back with associated nausea and vomiting x2 weeks. On exam vital signs stable, NAD, nontoxic appearing, abdomen is soft with epigastric/RUQ tenderness, no rebound or guarding, no CVAT. Concern for acute cholecystitis/lithiasis vs pancreatitis. Lower suspicion for acute PE/pleural effusion or pneumonia. Lower suspicion for renal stones/pyelo Plan: EKG, Labs, UA, CT AP, IVF, patient refusing pain medication Please refer to course for remaining clinical decision making, interpretation of labs/imaging results, and discussions with consultants and/or family members. Differential Diagnosis Differential Diagnoses: The differential diagnosis associated with the presentation includes As above Admission/Observation Consideration of admission/observation: Escalation of care including admission/observation considered Lab Data MDM Lab Attestation statement: I reviewed the patient's lab results. 10/10/24 11:55 10/10/24 11:56 Labs: Lab Results 10/10/24 10/10/24 10/10/24 Range/Units 11:55 11:56 19:28 WBC 7.9 (4.8-10.8) X10*3/uL RBC 4.66 (4.60-5.80) X10*6/uL Hgb 15.0 (14.0-18.0) g/dl Hct 41.9 L (42.0-52.0) % MCV 89.9 (80.0-98.0) fL MCH 32.2 (27.0-33.0) pg MCHC 35.8 (31.0-36.0) g/dl RDW 11.7 (11.0-16.0) % Plt Count 369 (160-400) X10*3/uL MPV 9.2 L (9.4-12.4) fL Immature Gran % (Auto) 0.5 H (0.0-0.4) % Neut % (Auto) 59.9 (45-73) % Lymph % (Auto) 22.2 (20-40) % [place] % (Auto) 11.7 H (2-11) % Eos % (Auto) 4.4 H (0-4) % Baso % (Auto) 1.3 (0-2) % Lymph # (Auto) 1.8 (1.2-4.9) X10*3/uL [place] # (Auto) 0.9 (0.1-1.2) X10*3/uL Eos # (Auto) 0.4 (0.0-0.4) X10*3/uL Baso # (Auto) 0.1 (0.0-0.2) X10*3/uL Abs Immat Gran (auto) 0.04 H (0.00-0.03) X10*3/uL Absolute Neuts (auto) 4.8 (2.0-8.3) x10*3/uL Absolute Nucleated RBC 0.000 (0.0-0.012) X10*3/uL Nucleated RBC % (auto) 0.0 (0.0-0.2) /100WBC PT 12.6 H (10.9-12.4) SEC INR 1.1 (0.9-1.1) Sodium 133 L (135-145) mmol/L Potassium 4.6 (3.3-5.1) mmol/L Chloride 103 (96-108) mmol/L Carbon Dioxide 20 L (22-29) mmol/L Anion Gap 15 (12-20) BUN 9 (9-16) mg/dL Creatinine 0.97 (0.5-1.4) mg/dL Estim Creat Clear Calc 111.8 Estimated GFR > 60 Random Glucose 90 (60-115) mg/dL Calcium 9.9 (8.4-10.2) mg/dL Magnesium 1.4 L* (1.6-2.6) mg/dL Total Bilirubin 0.4 (0.0-1.0) mg/dL AST 42 H (5-37) U/L ALT 61 H (0-40) U/L Alkaline Phosphatase 56 (39-117) U/L Troponin I High Sens < 2.7 (<3.5-35.0) ng/L Total Protein 7.3 (6.5-8.0) g/dL Albumin 4.5 (3.5-5.0) g/dL Lipase 24 (8-78) U/L Urine Color Yellow Urine Appearance Clear Urine pH 6.5 (5.0-9.0) Ur Specific [place] >= 1.030 H (1.005-1.025) Urine Protein Trace (Neg-Trace) mg/dL Urine Glucose (UA) Negative (Negative) mg/dL Urine Ketones Negative (Negative) mg/dL Urine Blood Negative (Negative) Urine Nitrite Negative (Negative) Ur Leukocyte Esterase Negative (Negative) Influenza Type A (PCR) NEGATIVE (Negative) Influenza Type B (PCR) NEGATIVE (Negative) RSV RNA Qual (PCR) NEGATIVE (Negative) SARS-CoV-2 RNA (RT-PCR) NEGATIVE (Negative) Independent Interpretation I performed an independent interpretation of an: EKG (My interpretation EKG normal sinus rhythm rate of 90. MN interval 162. QRS 90. No significant change when compared to prior. No STEMI ) Radiology Impression Discussion of test interpretation with radiology: I have reviewed the radiologist's reading. External Record Review External record reviewed: Inpatient record, Office record, Outpatient record, Prior outpatient labs, Prior outpatient radiology, Primary care record and Outside ED record Tests considered The following testing was considered but not selected: As above Prescription Management I considered prescription management with: Pain Medication and Antibiotic Chronic Conditions Patient?s care impacted by: Other Social Determinants Patient?s care significantly limited by Social Determinants of Health including: Other Social Determinant of Health Critical Care Time Critical Care Time Critical Care Time: Yes Total Critical Care Time: 40 Attestation: I have personally provided critical care time exclusive of time spent on separately billable procedures. Time includes review of lab data, radiology results, discussion with consultants, and monitoring for potential decompensation. Intervention performed as documented. Discharge Plan Discharge Clinical Impression: Abdominal pain, RUQ, Hypomagnesemia Patient Disposition: Home, Self-Care Instructions: Abdominal Pain (ED) Additional Instructions: As discussed, your blood work today was overall very reassuring. Your magnesium level was just slightly low, this may be due to lack of dietary intake as well as vomiting. This was replaced while in the emergency department. You should speak with your primary care doctor they may consider repeating this blood value. Your urine sample does not show evidence of infection or blood in the urine. CT scan of your abdomen and pelvis did not show an obvious cause for the ongoing pain that you are experiencing. We reviewed possibility for speaking with hospital medicine team for admission due TM persistent pain and symptoms you however have declined. we feel that it would be most appropriate evaluation with Gastroenterology, provided with the contact information guarding. However as mentioned, there may be insurance concerns were you require a referral from your PCP prior to scheduling, use please contact your PCP office 1st thing to arrange for further follow-up. You may return back to emergency department any new or worsening symptoms or concerns. Prescriptions: No Action allopurinol 100 mg tablet 200 mg PO DAILY 90 Days Qty: 180 3RF fenofibrate micronized 200 mg capsule 200 mg PO DAILY 30 Days Qty: 30 2RF zolpidem 10 mg tablet 10 mg PO BEDTIME PRN (Reason: sleep) 30 Days Qty: 12 0RF (DME) blood-glucose meter [FreeStyle Lite Meter] Kit See Rx Instructions .ROUTE .MEDSUPPLY Qty: 1 0RF Rx Instructions: DX: E11.9, test blood sugar once a day, duration 999 days (DME) lancets [FreeStyle Lancets] [facility] See Rx Instructions .ROUTE .MEDSUPPLY Qty: 100 4RF Rx Instructions: As directed (DME) FreeStyle Lite Strips Strip See Rx Instructions .ROUTE .MEDSUPPLY Qty: 100 4RF Rx Instructions: DX: E11.9, test blood sugar once a day, 90 days fluticasone propionate [Flonase Allergy Relief] 50 mcg/actuation spray,suspension 1 spray intranasal Q12H 30 Days Qty: 16 2RF Rx Instructions: administer into each nostril (DME) Dexcom G7 Sensor Device See Rx Instructions .ROUTE .MEDSUPPLY Qty: 6 3RF Rx Instructions: As directed every 10 days metformin 1,000 mg tablet 1,000 mg PO BIDWMEAL Qty: 180 4RF dulaglutide 4.5 mg/0.5 mL pen injector 4.5 mg subcut QWEEK 28 Days Qty: 6 3RF lacosamide 200 mg tablet 200 mg PO DAILY losartan 50 mg tablet 50 mg PO DAILY 90 Days Qty: 90 3RF amlodipine 10 mg tablet 10 mg PO DAILY 90 Days Qty: 90 3RF Referrals: [facility] [Provider Group] Kalpesh Luu MD [Primary Care Provider] - Print Language: Macedonian
[2024-10-10 11:39] VITALS: BP 126/78; PULSE 96; RESP 18; TEMP 36.1; O2SAT 99; BMI 28.4
--- NOTE | 2024-10-10 11:40 | ECG_ITS ---
Test Reason : epigastric pain Blood Pressure : */* mmHG Vent. Rate : 90 BPM Atrial Rate : 90 BPM P-R Int : 162 ms QRS Dur : 90 ms QT Int : 356 ms P-R-T Axes : 37 -11 48 degrees QTcB Int : 435 ms Normal sinus rhythm Normal ECG When compared with ECG of 25-Sep-2018 01:32, No significant change was found Referred By: Karine Soto Electronically Signed By: Terry Begum
[2024-10-10 12:11] LABS: MANUAL DIFF FLAG NO
[2024-10-10 12:12] LABS: Basophils Absolute Auto 0.1 X10*3/uL (0.0-0.2); Basophils Percent Auto 1.3 % (0-2); Eosinophils Absolute Auto 0.4 X10*3/uL (0.0-0.4); Eosinophils Percent Auto 4.4 % (0-4); Hematocrit 41.9 % (42.0-52.0); Imm Gran Abs Auto 0.04 X10*3/uL (0.00-0.03); Imm Gran Pct Auto 0.5 % (0.0-0.4); Lymphocytes Absolute Auto 1.8 X10*3/uL (1.2-4.9); Lymphocytes Percent Auto 22.2 % (20-40); Mean Corpuscular HGB Conc 35.8 g/dl (31.0-36.0); Mean Corpuscular Hemoglobin 32.2 pg (27.0-33.0); Mean Corpuscular Volume 89.9 fL (80.0-98.0); Mean Platelet Volume 9.2 fL (9.4-12.4); Monocytes Absolute Auto 0.9 X10*3/uL (0.1-1.2); Monocytes Percent Auto 11.7 % (2-11); Neutrophils Absolute Auto 4.8 x10*3/uL (2.0-8.3); Neutrophils Percent Auto 59.9 % (45-73); Platelet Count 369 X10*3/uL (160-400); Red Blood Count 4.66 X10*6/uL (4.60-5.80); Red Cell Distribution Width 11.7 % (11.0-16.0); White Blood Count 7.9 X10*3/uL (4.8-10.8)
[2024-10-10 12:23] LABS: INTERNATIONAL NORM RATIO 1.1 (0.9-1.1); Prothrombin Time 12.6 SEC (10.9-12.4)
[2024-10-10 12:36] LABS: Troponin-I High Sensitivity < 2.7 ng/L (<3.5-35.0)
[2024-10-10 12:37] LABS: Alanine Aminotransferase 61 U/L (0-40); Albumin Level 4.5 g/dL (3.5-5.0); Alkaline Phosphatase 56 U/L (39-117); Anion Gap 15 (12-20); Aspartate Amino Transferase 42 U/L (5-37); Bilirubin Total 0.4 mg/dL (0.0-1.0); Blood Urea Nitrogen 9 mg/dL (9-16); Calcium 9.9 mg/dL (8.4-10.2); Carbon Dioxide 20 mmol/L (22-29); Chloride 103 mmol/L (96-108); Creatinine Clr Calc Pharmacy 111.8; Estimated Glomerular Filt Rate > 60; Glucose Random 90 mg/dL (60-115); Magnesium 1.4 mg/dL (1.6-2.6); Potassium 4.6 mmol/L (3.3-5.1); Sodium 133 mmol/L (135-145); Total Protein 7.3 g/dL (6.5-8.0)
[2024-10-10 12:59] LABS: Influenza A PCR NEGATIVE (Negative); Influenza B PCR NEGATIVE (Negative); Resp Syncy Virus RNA Qual PCR NEGATIVE (Negative); SARS COV2 PCR INHOUSE NEGATIVE (Negative)
--- OUTSIDE RECORDS SUMMARY | 2024-10-10 16:59 | XMS_ITS | Clinical Summary ---
Author Organization [facility] Address [address] [place] [address] Care Team Providers Care Phototypesetting Equipment Monitor Name Role Phone Unavailable Primary Care Provider [...]
--- OUTSIDE RECORDS SUMMARY | 2024-10-10 16:59 | XMS_ITS | Clinical Summary ---
Author Organization [facility] Address [address] [place] [address] Phone Care Team Providers Care Machine Adjuster Name Role Phone Unavailable Primary Care Provider [...]
[2024-10-10 17:12] LABS: Lipase 24 U/L (8-78)
[2024-10-10] MEDS: iohexoL 350 MG/ML 100 ML INFUS..BTL 85 ML IV (17:13)
--- NOTE | 2024-10-10 17:37 | PC.NURSE ---
Patient presents with RUQ abdominal pain with assov N/V since August. PMH: Overweight (BMI 25.0-29.9), Allergic rhinitis, Insomnia, Gout, Mixed hyperlipidemia, Diabetes mellitus, Epilepsy, SIADH (syndrome of inappropriate ADH production), Hyperlipidemia, Type 2 diabetes mellitus, Pulmonary nodule 1 cm or greater in diameter, Hx of gout. Patient recently had pulmonary nodules x 2 removed. Lungs clear bilat. Respirations even and non-labored. Abdomen soft, distended with positive bowel sounds. c/o RUQ abdominal pain. Positive pedal pulses with no edema. Bedside U/S performed
[2024-10-10] MEDS: 0.9 % Sodium Chloride 1,000 ML 999 ML IV (17:43)
[2024-10-10] MEDS: Magnesium Sulfate/H2O 2 GM/50 ML PIGGYBACK IV (17:43)
[2024-10-10 17:51] VITALS: BP 132/80; PULSE 84; RESP 16; O2SAT 98
[2024-10-10 19:12] VITALS: BP 116/79; PULSE 78; RESP 18; TEMP 36.4; O2SAT 97
[2024-10-10 19:40] LABS: Appearance Urine Clear; Color Urine Yellow; Glucose Urine UA Negative (Negative); Leukocyte Esterase Urine Negative (Negative); Nitrite Urine Negative (Negative); PH 6.5 (5.0-9.0); Specific Gravity - Urine >= 1.030 (1.005-1.025); Urine Blood Negative (Negative); Urine Ketones Negative (Negative); Urine Protein Trace mg/dL (Neg-Trace)
[2024-10-10 20:13] VITALS: BP 116/79; PULSE 78; RESP 18; TEMP 36.4; O2SAT 97
[2024-10-10 20:18] VITALS: BP 116/77; PULSE 76; RESP 19; TEMP 36.5; O2SAT 99
== END 2024-10-10 20:25 | disposition home or self-care (01) ==
PROVIDERS: Physician Assistant; Physician Assistant Medical; Emergency Provider Emergency Medicine; PCP Internal Medicine
DX: R10.2 Pelvic and perineal pain (principal); R11.2 Nausea with vomiting, unspecified; E83.42 Hypomagnesemia; R10.13 Epigastric pain; M54.50 Low back pain, unspecified; R10.11 Right upper quadrant pain; R16.0 Hepatomegaly, not elsewhere classified; Z79.899 Other long term (current) drug therapy; Z03.818 Encounter for observation for suspected exposure to other biological agents ruled out
CPT/HCPCS: 0241U; 71046; 74177; 80053; 81003; 83690; 83735; 84484; 85025; 85610; 93005; 96361; 96374; 99284; 99285; J3475; Q9967

== ENCOUNTER → 2024-10-10 11:40 | Outpatient (BNV) | payer OTHER, SELFPAY | PROVIDERS: Emergency Provider Emergency Medicine; PCP Internal Medicine; Visit Provider Internal Medicine Cardiovascular Disease | DX: R10.13 Epigastric pain (principal) | CPT/HCPCS: 93010 ==

== ENCOUNTER → 2024-10-10 16:57 | Outpatient (BNV) | payer OTHER, SELFPAY | PROVIDERS: Emergency Provider Emergency Medicine; PCP Internal Medicine; Visit Provider Radiology Diagnostic Radiology | DX: R10.13 Epigastric pain (principal); R11.2 Nausea with vomiting, unspecified; R91.8 Other nonspecific abnormal finding of lung field; R10.11 Right upper quadrant pain | CPT/HCPCS: 71046; 74177 ==

== ENCOUNTER 2024-10-19 11:58 | Outpatient (AMB) | payer OTHER, SELFPAY ==
[2024-10-19 12:06] VITALS: BP 110/70; PULSE 92; O2SAT 96; BMI 28.5
--- NOTE | 2024-10-19 12:06 | HO.NEPHOV ---
Vital Signs 10/19/24 12:06 Height 6 ft 3 in Weight 228 lb BMI 28.5 BP 110/70 Blood Pressure Location Rt brachial Position Sitting Pulse 92 Pulse Source Pulse Oximeter Pulse Oximetry (%) 96 Oxygen Delivery Method Room Air Intake Visit Reasons: Hyponatremia-Conf Allergies clarithromycin [From BIAXIN] Allergy (Severe, Verified 10/19/24 14:16) ANAPHYLAXIS ENVIRONMENTAL Allergy (Intermediate, Uncoded 10/19/24 14:16) ITCHY EYES RUNNY NOSE HPI Comments Details: Kiran castro is a 54-year-old gentleman who was in his usual state health until back in March when he started developing neurological symptoms. He was seen in [facility] where he underwent a CT scan of the head and neck. The CT scan of the neck demonstrated part of the lung parenchyma which showed a 17 mm right sided nodular density along with an 8 mm nodule adjacent to it. He had a full cardiac workup and ultimately diagnosed with seizures. He did have an MRI is going to be following with Neurology as well. He did not have any shortness breath or cough. 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 He had no significant lymphadenopathy. His lung nodular densities were taken out surgically in [place]. In the interim, he was found to have hyponatremia. He denies drinking excess beer or free water. He has no H/O hyperkalemia, hypotension or hypoglycemia. He has no H/O uncontrolled thyroid disorders, depression, H/O anti depressant medication intake, HF, liver or renal failure. He has no weakness or change in mental status. He has been having RUQ pain and had undergone imaging studies. He is also going to F/U with his thoracic surgeon to see whether it has anything to do with post surgical complication. He also has some difficulty in swallowing and is going to see GI. [facility] Medical History Overweight (BMI 25.0-29.9) Allergic rhinitis Insomnia Gout Mixed hyperlipidemia Diabetes mellitus Epilepsy SIADH (syndrome of inappropriate ADH production) Hyperlipidemia Type 2 diabetes mellitus Pulmonary nodule 1 cm or greater in diameter Hx of gout Surgical History History of lung surgery (~07/2024) History of repair of left hip joint History of plastic surgery History of right elbow replacement History of tonsillectomy Family History Paternal Grandmother Breast cancer Brother Brain tumor Maternal Aunt Breast cancer Other Mental health disorder Substance use disorder Social History Household Members: Children Housing: House Alcohol intake: current Alcohol intake frequency: a few times a month Patient Tobacco Use Status: Never used Tobacco e-Cigarette/Vaping Use: Never Used Second Hand Smoke Exposure: No service: No Current occupational status: employed 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 [employer] Current occupational exposures/hazards: No Gender identity: Male Cognitive needs: No Hearing needs: No Vision needs: No (reading glasses) Review of Systems Const All systems reviewed & are unremarkable except as noted in HPI and below Physical Exam Vital Signs: Last Vital Signs Pulse 92 10/19/24 12:06 BP 110/70 10/19/24 12:06 Pulse Ox 96 10/19/24 12:06 Oxygen Delivery Method Room Air 10/19/24 12:06 BMI result Body Mass Index 28.5 Const General: comfortable and no acute distress Orientation/consciousness: patient oriented x3 HEENT Head: Yes normocephalic Mouth: Normal oral and palatal mucosa present Eyes EOM: EOMs intact bilaterally Neck Neck: Yes supple Resp Auscultation: clear to auscultation bilaterally Cardio Jugular venous distension: no JVD Rate: regular rate GI Palpation (GI): Soft to palpation Auscultation: normal bowel sounds General: Yes no CVA tenderness Back/Spine/Pelvis Back: no CVA tenderness Skin General skin exam: no rashes or lesions noted Neuro General: patient oriented x3 and moves all extremities Extrem General: Yes no pedal edema Results Reviewed Nephrology Results: Hgb 15.0 g/dl (14.0-18.0) 10/10/24 WBC 7.9 X10*3/uL (4.8-10.8) 10/10/24 Plt Count 369 X10*3/uL (160-400) 10/10/24 Sodium 133 mmol/L (135-145) L 10/10/24 Potassium 4.6 mmol/L (3.3-5.1) 10/10/24 Chloride 103 mmol/L (96-108) 10/10/24 Carbon Dioxide 20 mmol/L (22-29) L 10/10/24 BUN 9 mg/dL (9-16) 10/10/24 Creatinine 0.97 mg/dL (0.5-1.4) 10/10/24 Calcium 9.9 mg/dL (8.4-10.2) 10/10/24 Urine Protein Trace mg/dL (Neg-Trace) 10/10/24 Urine Creatinine 105.87 mg/dL 10/01/24 Protein/Creatinin Ratio TNP 10/01/24 Assessment & Plan Assessment & Plan (1) Hypomagnesemia: Code(s): E83.42 - Hypomagnesemia Category: Medical (2) Hyponatremia: Code(s): E87.1 - Hypo-osmolality and hyponatremia Category: Medical Plan Hyponatremia likely due to excess ADH No H/O HF, liver disease or renal failure Denies polydypisia or excess beer drinking Serum K and rest of the work up reviewed Clinically euvolemic. Fluid restriction for now Needs to pursue pathology for RUQ pain/pain on swallowing No indication for PO Urea/NaCl tabs/Demeclocycline Shall continue to F/U. Further mgt is pending evolving data Orders: Orders Magnesium 6 Months E83.42 - Hypomagnesemia Electrolytes 6 Months E83.42 - Hypomagnesemia Creatinine 6 Months E83.42 - Hypomagnesemia Blood Urea Nitrogen 6 Months E83.42 - Hypomagnesemia Coding Level of Care Code Est Pt Level 4 (81372) Diagnoses Hypomagnesemia E83.42 Hyponatremia E87.1
--- OUTSIDE RECORDS SUMMARY | 2024-10-19 12:45 | XMS_ITS | Clinical Summary ---
Author Organization [facility] Address [address] [place] [address] Care Team Providers Care Medical Lab Technician Name Role Phone Unavailable Primary Care Provider [...]
== END 2024-10-19 12:40 | disposition home or self-care (01) ==
LOC: HO.HKA 11:59
PROVIDERS: PCP Family Medicine; Visit Provider Internal Medicine Nephrology
DX: E83.42 Hypomagnesemia (principal); E87.1 Hypo-osmolality and hyponatremia
CPT/HCPCS: 99214

== ENCOUNTER → 2024-10-19 11:58 | Outpatient (BNVA) | payer OTHER, SELFPAY | PROVIDERS: PCP Family Medicine; Visit Provider Internal Medicine Nephrology | DX: R10.11 Right upper quadrant pain (principal); E83.42 Hypomagnesemia; E11.9 Type 2 diabetes mellitus without complications; I10 Essential (primary) hypertension; R91.8 Other nonspecific abnormal finding of lung field; G40.009 Localization-related (focal) (partial) idiopathic epilepsy and epileptic syndromes with seizures of localized onset, not intractable, without status epilepticus; E87.1 Hypo-osmolality and hyponatremia; E78.2 Mixed hyperlipidemia; M1A.00X0 Idiopathic chronic gout, unspecified site, without tophus (tophi); E66.3 Overweight; J30.9 Allergic rhinitis, unspecified; G47.00 Insomnia, unspecified; Z68.28 Body mass index [BMI] 28.0-28.9, adult | CPT/HCPCS: 96127 ==

== ENCOUNTER 2024-10-19 13:38 | Outpatient (AMB) | payer OTHER, SELFPAY ==
[2024-10-19 13:42] VITALS: BP 136/80; PULSE 94; O2SAT 98; BMI 28.4
--- NOTE | 2024-10-19 13:42 | MHC.PC.OV ---
Vital Signs 10/19/24 13:42 Height 6 ft 3 in Weight 227 lb BMI 28.4 BP 136/80 Blood Pressure Location Lt brachial Position Sitting Pulse 94 Pulse Source Pulse Oximeter Pulse Oximetry (%) 98 Oxygen Delivery Method Room Air Intake Visit Reasons: 3 month f/u Clinical Trial Head Required: No Accompanied by: Self / Same As Patient Allergies clarithromycin [From BIAXIN] Allergy (Severe, Verified 10/19/24 14:16) ANAPHYLAXIS ENVIRONMENTAL Allergy (Intermediate, Uncoded 10/19/24 14:16) ITCHY EYES RUNNY NOSE Medication List - Last Reconciled 10/19/24 by Kalpesh Luu MD allopurinol 200 mg (2 x 100 mg) PO DAILY 90 days amlodipine 10 mg PO DAILY 90 days blood sugar diagnostic (FreeStyle Lite Strips) DX: E11.9, test blood sugar once a day, 90 days blood-glucose meter (FreeStyle Lite Meter kit) DX: E11.9, test blood sugar once a day, duration 999 days blood-glucose sensor ([employer] G7 Sensor device) As directed every 10 days dulaglutide 4.5 mg (0.5 mL) subcut QWEEK 28 days fenofibrate micronized 200 mg PO DAILY 30 days fluticasone propionate 50 mcg/actuation (Flonase Allergy Relief) 1 spray intranasal Q12H 30 days lacosamide 200 mg PO DAILY lancets (FreeStyle Lancets) As directed losartan 50 mg PO DAILY 90 days metformin 1,000 mg PO BIDWMEAL zolpidem 10 mg PO BEDTIME PRN 30 days Tobacco use date assessed: 10/19/24 Dental Screening Dental Screen Date: 10/19/24 Did you have a dental visit in the last 12 months?: Yes Did you have a dental problem in the last 6 months where you did not have access to dental care?: No Was dental information given to patient?: Patient has dentist HPI 3 month f/u HPI Details Patient comes in today for his follow up visit States that he continues to experience increased pain over his RUQ abdominal area - notes that the pain tends to feel worse when he eats or drinks so he has been trying to keep what he eats or drinks to a minimum and has been keeping his diet light and he has lost some weight recently as a result 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 Lira earlier today for nephrology follow up and states that Dr. Lira is trying to get him in to see someone at [facility] soon and he is just waiting for them to call him with an appointment Patient remains concerned that his symptoms may be due to his gallbladder or may even be related to his right lower lung segmentectomy that he had at the [facility] in [place], [place] a few months ago He denies any fever; denies any headaches or dizziness Denies any chest pains, no increased SOB No nausea/vomiting and no change in bowel habits noted [facility] Medical History Overweight (BMI 25.0-29.9) Allergic rhinitis Insomnia Gout Mixed hyperlipidemia Diabetes mellitus Epilepsy SIADH (syndrome of inappropriate ADH production) Hyperlipidemia Type 2 diabetes mellitus Pulmonary nodule 1 cm or greater in diameter Hx of gout Surgical History History of lung surgery (~07/2024) History of repair of left hip joint History of plastic surgery History of right elbow replacement History of tonsillectomy Family History Paternal Grandmother Breast cancer Brother Brain tumor Maternal Aunt Breast cancer Other Mental health disorder Substance use disorder Social History Household Members: Children Housing: House Alcohol intake: current Alcohol intake frequency: a few times a month Patient Tobacco Use Status: Never used Tobacco e-Cigarette/Vaping Use: Never Used Second Hand Smoke Exposure: No service: No Current occupational status: employed 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 1. Little interest or pleasure in doing things: not at all 2. Feeling down, depressed, or hopeless: not at all 3. Trouble falling or staying asleep, or sleeping too much: more than half the days 4. Feeling tired or having little energy: more than half the days 5. Poor appetite or overeating: not at all 6. Feeling bad about yourself - or that you are a failure or have let yourself or your family down: not at all 7. Trouble concentrating on things, such as reading the newspaper or watching television: not at all 8. Moving or speaking so slowly that other people could have noticed. Or the opposite - being so fidgety or restless that you have been moving around a lot more than usual: not at all 9. Thoughts that you would be better off or of hurting yourself in some way: not at all Total score: 4 Depression Screening Interpretation: Positive Depression Screening Follow-up: Existing condition and Follow-up Visit Requested Depression Screening Done: Yes 21221 - PHQ-9 Billing: Yes Source: Developed by Drs. Clarke Bella, Lily Hale, Rogelio Dunne and colleagues, with an educational chavez from [employer]. Thrive Questionnaire Date Thrive assessed: 10/19/24 I am a: Patient What is your living situation today?: I have a steady place to live Within the past 12 months, did the food you bought not last and you didn't have the money to get more?: Never true Within the past 12 months, did you worry whether your food would run out before you got money to buy more?: Never true Do you have trouble paying for medicines?: No Do you have trouble getting transportation to medical appointments?: No Do you have trouble paying your heating and electricity bill?: No Do you have trouble taking care of your child, family member or friend?: No Do you have trouble with day-to-day activities such as bathing, preparing meals, shopping, managing finances, etc.?: No Are you currently unemployed and looking for a job?: No Are you interested in more education?: No Please select the resources that you would like help with: None Currently or been in a relationship where the following occur: No concerns reported THRIVE Score: 0 AUDIT C Alcohol Use Questionnaire (AUDIT-C) 1. How often do you have a drink containing alcohol?: 2-4 times a month 2. How many drinks containing alcohol do you have on a typical day when you are drinking?: 1 or 2 3. How often do you have six or more drinks on one occasion?: Never Total Score: 2 Score Reviewed/Action Taken: Yes BROCK-7 AMB Questionnaire BROCK-7 Date BROCK - 7 assessed: 10/19/24 Feeling nervous, anxious, or on edge: 0 = Not at all Not being able to stop or control worryin = Not at all Worrying too much about different things: 0 = Not at all Trouble relaxin = Not at all Being so restless that it is hard to sit still: 0 = Not at all Becoming easily annoyed or irritable: 0 = Not at all Feeling afraid as if something awful might happen: 0 = Not at all Total BROCK-7 score (0-4 normal; 5-9 mild; 10-14 moderate; 15-21 severe): 0 Source: Developed by Drs. Clarke Bella, Lily Hale, Rogelio Dunne and colleagues, with an educational chavez from [employer]. Review of Systems Const Denies chills, Denies fatigue, Denies fever(s) and Denies headache(s) ENT Denies dysphagia, Denies dizziness, Denies otalgia, Denies headache(s), Denies neck pain, Denies odynophagia and Denies sore throat Card Denies chest pain, Denies palpitations and Denies dyspnea Resp Denies chest congestion, Denies cough and Denies dyspnea GI Reports abdominal pain (right-sided - see HPI for details), Denies constipation, Denies dysphagia, Denies heartburn, Denies diarrhea, Denies nausea, Denies odynophagia and Denies vomiting Denies difficulty urinating, Denies dysuria, Denies nocturia and Denies urinary frequency Musc Denies back pain and Denies neck pain Skin/Breast Denies rash Neuro Denies dizziness, Denies headache(s) and Denies convulsions (controlled) Psych Reports anxiety Endo Denies fatigue and Denies palpitations Physical exam (Primary Care) Vital Signs: Last Vital Signs Pulse 94 10/19/24 13:42 BP 136/80 10/19/24 13:42 Pulse Ox 98 10/19/24 13:42 Oxygen Delivery Method Room Air 10/19/24 13:42 BMI result Body Mass Index 28.4 Tobacco/Smoking Status: Tobacco use Status Tobacco use date assessed 10/19/24 10/19/24 13:49 Patient Tobacco Use Status Never used Tobacco 10/19/24 13:49 e-Cigarette/Vaping Use Never Used 10/19/24 13:49 PHQ-9: PHQ-9 Score PHQ-9: Total score 4 10/19/24 14:27 Depression Screening Interpretation: Positive Depression Screening Follow-up: Existing condition and Follow-up Visit Requested Thrive Assessment: Date of Thrive Assessment Date Thrive assessed 10/19/24 10/19/24 13:49 Currently or been in a relationship where the following occur: No concerns reported Const General: no acute distress and alert HENMT Ears: TM's normal bilaterally and EAC's normal Throat: Yes posterior oropharynx normal and Yes tonsils normal (no TP congestion) Neck Neck: Yes supple and No lymphadenopathy Thyroid: Thyroid normal Resp Auscultation: clear to auscultation bilaterally, no rales and no wheezes Cardio Rate: regular rate Rhythm: regular rhythm Heart sounds: no murmurs GI Palpation (GI): Tenderness to palpation present (GI) (over the entire right side of the abdomen, especially over the upper half), Guarding due to palpation present (GI) (mild) in the RUQ and No Rebound tenderness present Auscultation: normal bowel sounds General: Yes no CVA tenderness Back/Spine/Pelvis Back: no CVA tenderness Skin Rashes: no rashes Extrem General: Yes no clubbing, cyanosis or edema Results Reviewed Results Reviewed: Laboratory Tests 10/01/24 10/10/24 10/10/24 10:57 11:55 11:56 WBC 7.9 Hgb 15.0 Hct 41.9 L Plt Count 369 Sodium 133 L Potassium 4.6 Creatinine 0.97 Estimated GFR > 60 Random Glucose 90 Hemoglobin A1c % 7.0 H Calcium 9.9 Magnesium 1.4 L* AST 42 H ALT 61 H TSH 1.26 Random Cortisol 13.4 Ur Specific [place] Urine Protein Urine Glucose (UA) Urine Blood Urine Nitrite Ur Leukocyte Esterase 10/10/24 19:28 WBC Hgb Hct Plt Count Sodium Potassium Creatinine Estimated GFR Random Glucose Hemoglobin A1c % Calcium Magnesium AST ALT TSH Random Cortisol Ur Specific [place] >= 1.030 H Urine Protein Trace Urine Glucose (UA) Negative Urine Blood Negative Urine Nitrite Negative Ur Leukocyte Esterase Negative Coding Level of Care Code Est Pt Level 4 (71480) Diagnoses Right sided abdominal pain R10.9 Pulmonary nodules R91.8 Partial idiopathic epilepsy with seizures of localized onset, not intractable, without status epilepticus G40.009 Epilepsy type: partial idiopathic, localized onset Intractability: not intractable Status epilepticus: without status epilepticus Type 2 diabetes mellitus without complication, without long-term current use of insulin E11.9 Diabetes mellitus complication status: without complication Diabetes mellitus senior living insulin use: without intermediate project manager use Diabetes mellitus type: type 2 Hyponatremia E87.1 Mixed hyperlipidemia E78.2 Essential hypertension I10 Idiopathic chronic gout without tophus, unspecified site [id number] Chronicity: chronic Gout etiology: idiopathic Gout site: unspecified site Presence of tophus: without tophus Allergic rhinitis, unspecified seasonality, unspecified trigger J30.9 Allergic rhinitis seasonality: unspecified Allergic rhinitis trigger: unspecified Insomnia, unspecified type G47.00 Insomnia type: unspecified Overweight (BMI 25.0-29.9) E66.3 Additional Codes PHQ-9 - 94795 - PHQ-9 Billing: Yes ([id number]) Assessment & Plan Assessment & Plan (1) Right sided abdominal pain: Code(s): R10.9 - Unspecified abdominal pain Category: Medical Plan: Results of his labs done over the past couple of weeks have all come back normal except for a low serum magnesium level and slightly elevated LFTs Abdominal ultrasound done a couple of weeks ago revealed only findings of fatty infiltration of the liver and mild hepatomegaly Patient eventually went to the ER last week for further evaluation due to increasing right upper quadrant abdominal pain and he subsequently had an abdominal CT done which came back unrevealing He is in today for follow-up and further evaluation We will refer him to Gastroenterology for further evaluation and management but [facility] is not able to get him in until sometime in December 2024 at the earliest Patient states that Dr. Lira is trying to get him in to see someone at [facility] much sooner and he is just waiting for them to call him with an appointment at this time (2) Pulmonary nodules: Code(s): R91.8 - Other nonspecific abnormal finding of lung field Category: Medical Plan: These were incidentally noted on CTA of the neck done at [facility] in March 2024 when patient was being worked up for his seizures PET scan done in April 2024 revealed reassuring findings Patient was seen by Oncology and Pulmonary for these and was reassured that his findings are likely benign but patient insisted on having these lesions removed (surgically) and he ultimately underwent robotic thoracoscopy and right lower lobe segmentectomy at the [facility] in [place], [place] a few weeks ago on 08/09/2024 Patient is currently concerned as to whether his recent pulmonary procedure has anything to do with his current right-sided abdominal symptoms Chest x-rays done last week came back normal (3) Epilepsy: Code(s): G40.909 - Epilepsy, unspecified, not intractable, without status epilepticus Category: Medical Qualifiers: Epilepsy type: partial idiopathic, localized onset Intractability: not intractable Status epilepticus: without status epilepticus Qualified Code(s): G40.009 - Localization-related (focal) (partial) idiopathic epilepsy and epileptic syndromes with seizures of localized onset, not intractable, without status epilepticus Plan: Patient started experiencing his seizure episodes back in March 2024, which included acute onset of episodic tremors of bilateral upper extremities associated with sensations of goose bumps, flushing, tachycardia and stuttering/difficulty getting words out CT and MRI of the brain done at the time were negative; CTA of the head and neck also came out negative although his neck angiogram revealed the presence incidentally of 2 right lower lobe pulmonary nodules, for which he is currently undergoing further workups and has surgical resection planned for next month at the [facility] on 08/09/2024 Patient states that he has not any further seizures recently since he was started on Lacosamide 200 mg QD He continues to follow-up with Dr. Cervantes of [facility] regularly (4) Diabetes mellitus: Code(s): E11.9 - Type 2 diabetes mellitus without complications Category: Medical Qualifiers: Diabetes mellitus complication status: without complication Diabetes mellitus intermediate project manager insulin use: without senior living use Diabetes mellitus type: type 2 Qualified Code(s): E11.9 - Type 2 diabetes mellitus without complications Plan: Patient has diabetes is currently reasonably controlled, with a HgbA1c of 6.9% last month - goal is at least <7.0% but ideally <6.5% Reinforced diabetic diet Continue Trulicity 4.5 mg SQ once a week and Metformin 1000 mg BID (5) Hyponatremia: Code(s): E87.1 - Hypo-osmolality and hyponatremia Category: Medical Plan: His serum sodium was at 132 mmol/L when last checked about a month ago He was seen and evaluated by endocrinology for this and was determined this is likely due to SIADH, and was referred to Nephrology for further management He is instructed to continue with fluid restriction up to 1 L per day and increased salt intake in his diet Follow up with nephrology as scheduled (6) Mixed hyperlipidemia: Code(s): E78.2 - Mixed hyperlipidemia Category: Medical Plan: Reinforced low-cholesterol diet His serum triglyceride level was still slightly elevated at 155 mg/dL when last checked in February 2024 Continue Fenofibrate 200 mg QD Will recheck his labs and fasting lipids next month for follow-up (7) Essential hypertension: Code(s): I10 - Essential (primary) hypertension Category: Medical Plan: Reinforced low-sodium diet although his recent SIADH diagnosis requires him to increase his salt intake - goal is systolic BP of 120 mm or less Continue Amlodipine 10 mg QD and Losartan 50 mg QD Patient is instructed to monitor his blood pressure regularly (8) Gout: Code(s): M10.9 - Gout, unspecified Category: Medical Qualifiers: Chronicity: chronic Gout etiology: idiopathic Gout site: unspecified site Presence of tophus: without tophus Qualified Code(s): M1A.00X0 - Idiopathic chronic gout, unspecified site, without tophus (tophi) Plan: His serum uric acid level was normal at 5.5 mg/dl when last checked in February 2022 Patient states that he has not had any gout flare-ups in a few years now Continue Allopurinol 200 mg QD (9) Allergic rhinitis: Code(s): J30.9 - Allergic rhinitis, unspecified Category: Medical Qualifiers: Allergic rhinitis seasonality: unspecified Allergic rhinitis trigger: unspecified Qualified Code(s): J30.9 - Allergic rhinitis, unspecified Plan: Continue Fluticasone 50 mcg nasal spray QD PRN (10) Insomnia: Code(s): G47.00 - Insomnia, unspecified Category: Medical Qualifiers: Insomnia type: unspecified Qualified Code(s): G47.00 - Insomnia, unspecified Plan: Sleep hygiene reinforced Continue Zolpidem 10 mg Q HS PRN (11) Overweight (BMI 25.0-29.9): Code(s): E66.3 - Overweight Category: Medical Plan: Reinforced diet/exercise as tolerated/lose weight Plan Follow up as scheduled next month Orders: Referrals Gastroenterology Referral R10.9 - Unspecified abdominal pain
== END 2024-10-19 14:18 | disposition home or self-care (01) ==
LOC: HO.HMCH 13:39
PROVIDERS: PCP Family Medicine; Visit Provider Internal Medicine
DX: R10.9 Unspecified abdominal pain (principal); R91.8 Other nonspecific abnormal finding of lung field; G40.009 Localization-related (focal) (partial) idiopathic epilepsy and epileptic syndromes with seizures of localized onset, not intractable, without status epilepticus; E11.9 Type 2 diabetes mellitus without complications; E87.1 Hypo-osmolality and hyponatremia; E78.2 Mixed hyperlipidemia; I10 Essential (primary) hypertension; M1A.00X0 Idiopathic chronic gout, unspecified site, without tophus (tophi); J30.9 Allergic rhinitis, unspecified; G47.00 Insomnia, unspecified; E66.3 Overweight

== ENCOUNTER 2025-02-28 09:19 | Outpatient (AMB) | payer OTHER, SELFPAY ==
[2025-02-28 09:43] VITALS: BP 130/86; PULSE 93; O2SAT 97; BMI 29.7
--- NOTE | 2025-02-28 09:43 | A.OFFPC_ITS ---
Vital Signs 02/28/25 09:43 Height 6 ft 3 in Weight 237 lb 6 oz BMI 29.7 BP 130/86 Blood Pressure Location Lt brachial Position Sitting Pulse 93 Pulse Source Pulse Oximeter Pulse Oximetry (%) 97 Oxygen Delivery Method Room Air Intake Visit Reasons: 3 Months - see comments Mining Detail Draftsperson Required: No Accompanied by: Self / Same As Patient Allergies clarithromycin (From BIAXIN) Allergy (Severe, Verified 02/28/25 10:15) ANAPHYLAXIS ENVIRONMENTAL Allergy (Intermediate, Uncoded 02/28/25 10:15) ITCHY EYES RUNNY NOSE Medication List - Last Reconciled 02/28/25 by Kalpesh Luu MD allopurinol 200 mg (2 x 100 mg) PO DAILY 90 days amlodipine 10 mg PO DAILY 90 days blood sugar diagnostic (FreeStyle Lite Strips) DX: E11.9, test blood sugar once a day, 90 days blood-glucose meter (FreeStyle Lite Meter kit) DX: E11.9, test blood sugar once a day, duration 999 days blood-glucose sensor (DexFlextrip G7 Sensor device) As directed every 10 days dulaglutide 4.5 mg (0.5 mL) subcut QWEEK 28 days fenofibrate micronized 200 mg PO DAILY fluticasone propionate 50 mcg/actuation (Flonase Allergy Relief) 1 spray intranasal Q12H 30 days lacosamide 200 mg PO DAILY lancets (FreeStyle Lancets) As directed losartan 50 mg PO DAILY 90 days metformin 1,000 mg PO BIDWMEAL zolpidem 10 mg PO BEDTIME PRN 30 days Tobacco use date assessed: 02/28/25 Dental Screening Dental Screen Date: 02/28/25 Did you have a dental visit in the last 12 months?: Yes Did you have a dental problem in the last 6 months where you did not have access to dental care?: No Was dental information given to patient?: Patient has dentist [facility] Medical History Overweight (BMI 25.0-29.9) Allergic rhinitis Insomnia Gout Mixed hyperlipidemia Diabetes mellitus Epilepsy SIADH (syndrome of inappropriate ADH production) Hyperlipidemia Type 2 diabetes mellitus Pulmonary nodule 1 cm or greater in diameter Hx of gout Surgical History History of lung surgery (~07/2024) History of repair of left hip joint History of plastic surgery History of right elbow replacement History of tonsillectomy Family History Paternal Grandmother Breast cancer Brother Brain tumor Maternal Aunt Breast cancer Other Mental health disorder Substance use disorder Social History Household Members: Children Housing: House Alcohol intake: current Alcohol intake frequency: a few times a month Patient Tobacco Use Status: Never used Tobacco e-Cigarette/Vaping Use: Never Used Second Hand Smoke Exposure: No service: No Current occupational status: employed 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 [employer] Current occupational exposures/hazards: No Gender identity: Male Cognitive needs: No Hearing needs: No Vision needs: No (reading glasses) Questionnaire Thrive Questionnaire Date Thrive assessed: 05/26/24 I am a: Patient What is your living situation today?: I have a steady place to live Within the past 12 months, did the food you bought not last and you didn't have the money to get more?: Never true Within the past 12 months, did you worry whether your food would run out before you got money to buy more?: Never true Do you have trouble paying for medicines?: No Do you have trouble getting transportation to medical appointments?: No Do you have trouble paying your heating and electricity bill?: No Do you have trouble taking care of your child, family member or friend?: No Do you have trouble with day-to-day activities such as bathing, preparing meals, shopping, managing finances, etc.?: No Are you currently unemployed and looking for a job?: No Are you interested in more education?: No Please select the resources that you would like help with: None Currently or been in a relationship where the following occur: No concerns reported THRIVE Score: 0 AUDIT C Alcohol Use Questionnaire (AUDIT-C) 1. How often do you have a drink containing alcohol?: 2-4 times a month 2. How many drinks containing alcohol do you have on a typical day when you are drinking?: 1 or 2 3. How often do you have six or more drinks on one occasion?: Never Total Score: 2 Score Reviewed/Action Taken: Yes BROCK-7 AMB Questionnaire BROCK-7 Date BROCK - 7 assessed: 10/19/24 Source: Developed by Drs. Clarke Bella, Lily Hale, Rogelio Dunne and colleagues, with an educational chavez from [employer]. Physical exam (Primary Care) Vital Signs: Last Vital Signs Pulse 93 02/28/25 09:43 BP 130/86 02/28/25 09:43 Pulse Ox 97 02/28/25 09:43 Oxygen Delivery Method Room Air 02/28/25 09:43 BMI result Body Mass Index 29.7 Tobacco/Smoking Status: Tobacco use Status Tobacco use date assessed 02/28/25 02/28/25 09:48 Patient Tobacco Use Status Never used Tobacco 02/28/25 09:48 e-Cigarette/Vaping Use Never Used 02/28/25 09:48 Thrive Assessment: Date of Thrive Assessment Date Thrive assessed 05/26/24 02/28/25 09:48 Currently or been in a relationship where the following occur: No concerns reported Results AMB Hemoglobin A1c AMB Hemoglobin A1c 7.5 % Last Edit by ROMA Cooper on 02/28/25 10 :18 Coding Assessment & Plan Assessment & Plan Orders: Orders Complete Blood Count Auto Diff 3 Months D64.9 - Anemia, unspecified Microalbumin, Random (w Creat) 3 Months E11.9 - Type 2 diabetes mellitus without complications Magnesium 3 Months E83.42 - Hypomagnesemia AMB Hemoglobin A1c Today Z13.9 - Encounter for screening, unspecified Comprehensive [place]. Panel Fast 3 Months E78.00 - Pure hypercholesterolemia, unspecified Lipid Panel 3 Months E78.00 - Pure hypercholesterolemia, unspecified Hemoglobin A1c 3 Months E11.9 - Type 2 diabetes mellitus without complications TSH reflex Free T4 3 Months E78.00 - Pure hypercholesterolemia, unspecified UA CC w/rflx Micro + Cult 3 Months R30.0 - Dysuria Vitamin D 25-OH Total 3 Months E55.9 - Vitamin D deficiency, unspecified Vitamin B12 and Folate 3 Months E53.8 - Deficiency of other specified B group vitamins Referrals Urology Referral N40.1 - Benign prostatic hyperplasia with lower urinary tract symptoms Gastroenterology Referral R12 - Heartburn, Z12.11 - Encounter for screening for malignant neoplasm of colon
--- OUTSIDE RECORDS SUMMARY | 2025-02-28 10:24 | XMS_ITS | Clinical Summary ---
Author Organization [facility] Address [address] [place] [address] Care Team Providers Care Service Desk Lead Name Role Phone Unavailable Primary Care Provider Unavailabl e Immunizations Immunization Administration Dates Next Due PPD/TST (Tuberculin Skin [...] (Shingrix) (1 of 2) 2019 COVID-19 Vaccine (2024-2 6 season) 2025 Influenza (#1) 2025 HPV Vaccine (No Doses Required) Completed Hep A Aged Out No longer eligi ble based on patient's age to complete this topic Hib Aged Out No longer eligi ble based on patient's age to complete this topic Meningococcal ACWY Aged Out No longer eligible based on patient's age to complete this topic
--- OUTSIDE RECORDS SUMMARY | 2025-02-28 10:24 | XMS_ITS | Clinical Summary ---
Author Organization [facility] Address [address] [place] [address] Phone Care Team Providers Care Screen Roller Name Role Phone Unavailable Primary Care Provider Unavailabl e Social History Tobacco Use Types Packs/Day Years Used Date Smoking Tobacco: Never Assessed Sex and Gender Information Value Date Recorded Sex Assigned at Not on file Legal Sex Male 2:53 PM EST Gender Identity Not on file Sexual Orientation Not on file Plan of Treatment Health Maintenance Due Date Last Done Comments Colorectal Cancer Screening: Colonoscopy 1969 DTaP,Tdap,and Td Vaccines (1 - Tdap) 02/03/1988 Hepatitis B Vaccines (1 of 3 - 19+ 3-dose series) 02/03/1988 Pneumococcal Vaccine: 50+ Years (1 of 1 - PCV) 2019 Zoster Vaccines (1 of 2) 2019 Cholesterol Screening (Lipid Panel) 05/12/2024 HIV Screening 05/12/2024 Hepatitis C Screening 05/12/2024 Social Influencers of Health Screening 05/12/2024 Depression Screening 05/25/2024 COVID-19 Vaccine (2024- season) 2025 06/06/2021, 08/22/2020, 08/02/2020 Influenza Vaccine (#1) 2025 , 03/18/2019, 03/31/2018, Additional history exists RSV Immunization Adult Patients (1 - 1-dose 75+ series) 02/03/2044 HIB Vaccines Aged Out No longer eligi [...]
== END 2025-02-28 10:37 | disposition home or self-care (01) ==
LOC: HO.HMCH 09:20
PROVIDERS: PCP Family Medicine; Visit Provider Internal Medicine
DX: Z13.9 Encounter for screening, unspecified (principal)

== ENCOUNTER → 2025-02-28 09:19 | Outpatient (BNVA) | payer OTHER, SELFPAY | PROVIDERS: PCP Family Medicine; Visit Provider Internal Medicine | DX: E11.9 Type 2 diabetes mellitus without complications (principal); R10.9 Unspecified abdominal pain; R91.8 Other nonspecific abnormal finding of lung field; G40.009 Localization-related (focal) (partial) idiopathic epilepsy and epileptic syndromes with seizures of localized onset, not intractable, without status epilepticus; E87.1 Hypo-osmolality and hyponatremia; E78.2 Mixed hyperlipidemia; I10 Essential (primary) hypertension; M1A.00X0 Idiopathic chronic gout, unspecified site, without tophus (tophi); J30.9 Allergic rhinitis, unspecified; N40.1 Benign prostatic hyperplasia with lower urinary tract symptoms; R35.0 Frequency of micturition; G47.00 Insomnia, unspecified; E66.3 Overweight; D64.9 Anemia, unspecified; E83.42 Hypomagnesemia; E78.00 Pure hypercholesterolemia, unspecified; R30.0 Dysuria; E53.8 Deficiency of other specified B group vitamins; R12 Heartburn; Z68.29 Body mass index [BMI] 29.0-29.9, adult | CPT/HCPCS: 83036 ==

== ENCOUNTER 2025-04-17 15:36 | Outpatient (REF) | payer OTHER, SELFPAY ==
[2025-04-17 17:03] LABS: Anion Gap 13 (12-20); Blood Urea Nitrogen 14 mg/dL (9-16); Carbon Dioxide 29 mmol/L (22-29); Chloride 100 mmol/L (96-108); Estimated Glomerular Filt Rate > 60; Magnesium 1.8 mg/dL (1.6-2.6); Potassium 4.3 mmol/L (3.3-5.1); Sodium 138 mmol/L (135-145)
--- OUTSIDE RECORDS SUMMARY | 2025-04-17 20:07 | XMS_ITS | Clinical Summary ---
Author Organization [facility] Address [address] [place] [address] Phone Care Team Providers Care Clarifier Operator Helper Name Role Phone Unavailable Primary Care [...]
--- OUTSIDE RECORDS SUMMARY | 2025-04-17 20:07 | XMS_ITS | Clinical Summary ---
Author Organization [facility] Address [address] [place] [address] Care Team Providers Care Switch House Operator Name Role Phone Unavailable Primary Care Provider [...] (2024-2 6 season) 2025 Influenza (#1) 2025 RSV (1 - 1-dose 75+ series) 02/03/2044 HPV Vaccine (No Doses Required) Completed Hep A Aged Out No longer eligi ble based on patient's age to complete this topic Hib Aged Out No longer eligi ble based on patient's age to complete this topic Meningococcal ACWY Aged Out No longer eligible based on patient's age to complete this topic
== END 2025-04-17 15:37 | disposition home or self-care (01) ==
LOC: HO.LAB 15:36
PROVIDERS: PCP Internal Medicine; Visit Provider Internal Medicine Nephrology
DX: E83.42 Hypomagnesemia (principal)
CPT/HCPCS: 36415; 80051; 82565; 83735; 84520

== ENCOUNTER 2025-05-09 12:40 | Outpatient (AMB) | payer OTHER, SELFPAY ==
[2025-05-09 12:46] VITALS: BP 132/80; PULSE 80; TEMP 36.6; O2SAT 96; BMI 30.6
--- NOTE | 2025-05-09 12:46 | MHC.OFFWIV ---
Intake Vital Signs 05/09/25 12:46 Height 6 ft 3 in Weight 245 lb BMI 30.6 BP 132/80 Blood Pressure Location Rt brachial Position Sitting Pulse 80 Pulse Source Pulse Oximeter Temp 98 F Temp Source Oral Pulse Oximetry (%) 96 Oxygen Delivery Method Room Air Intake Visit Reasons: EP-sinus issue Intake Note: Patient presents c/o sinus congestion/pain, post nasal drip, sore throat x3 days. Patient Tobacco Use Status: Never used Tobacco Allergies clarithromycin (From BIAXIN) Allergy (Severe, Verified 05/09/25 12:50) ANAPHYLAXIS ENVIRONMENTAL Allergy (Intermediate, Uncoded 05/09/25 12:50) ITCHY EYES RUNNY NOSE Do you need a note to return to daycare/school/sports/work: No HPI HPI Comments History of Present Illness Details History - The patient is a 55 year old male presenting with a burning sensation in his throat, nasal congestion, and chills. - The patient reports that for the past several days he has had nasal congestion, which has progressively worsened over the last couple of days, and he feels the discharge is thicker than normal. - Since last night, he has experienced a burning sensation in his throat when swallowing, which has prevented him from eating. - He also reports a cough, shivering all day, and feeling hot and cold, though he has not had a fever. - He notes being in contact with three or four people who were recently treated for strep throat. 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 De Oliveira at [facility]. - About two months after the surgery, he developed sharp abdominal pains, which were thought to be a possible side effect of Trulicity. - The patient is on two blood pressure medications for hypertension. - The patient manages his Type 2 Diabetes with Trulicity; his A1c was 14, improved to 6 with medication, but harmeet to over 8 when he temporarily stopped Trulicity due to abdominal pain. - He has since resumed the medication to manage his blood sugar despite the discomfort. - He denies a history of asthma or COPD. - He reports poor hearing in one ear and has a history of tonsillectomy. Review of Systems - General: Reports feeling unwell, shivering, and feeling hot and cold. Denies fever. - HEENT: Reports a burning sensation in the throat upon swallowing, nasal congestion with thick discharge, and poor hearing in one ear. Denies choking. - Respiratory: Reports a cough. Denies shortness of breath or wheezing. All systems reviewed and are unremarkable except as noted in HPI Physical Exam General: Cooperative, healthy appearing, comfortable and no acute distress Orientation/consciousness: Patient oriented x3 Limitations: No limitations Head: Normal to inspection Ears: Hearing impaired in the right ear, Bilateral EAC's impacted with cerumen Nose: Nasal congestion present, thicker than normal discharge Face and sinus: Normal facial exam and sinuses nontender Mouth: Normal oral and palatal mucosa present and moist mucous membranes Throat: No tonsils present, no exudates, uvula midline, posterior oropharynx erythema Eyes: Appearance normal, both eyes and all related structures Neck: Normal visual inspection, full ROM, enlarged cervical lymph nodes Respiratory: Clear to auscultation bilaterally. Normal respiratory effort, able to speak in complete sentences, actively coughing, no respiratory distress, not tachypneic, no tripod positioning and no use of accessory muscles Cardiovascular: Regular rate and rhythm. Normal S1 and S2 Skin: No rashes or lesions noted Neuro: Patient oriented x3 Extremities: Normal to inspection and Yes no clubbing, cyanosis or edema [facility] Medical History (Updated 05/09/25 @ 13:20 by Roseline Pérez PA-C) Strep pharyngitis Bilateral impacted cerumen Overweight (BMI 25.0-29.9) Allergic rhinitis Insomnia Gout Mixed hyperlipidemia Diabetes mellitus Epilepsy SIADH (syndrome of inappropriate ADH production) Hyperlipidemia Type 2 diabetes mellitus Pulmonary nodule 1 cm or greater in diameter Hx of gout Surgical History History of lung surgery (~07/2024) History of repair of left hip joint History of plastic surgery History of right elbow replacement History of tonsillectomy Family History Paternal Grandmother Breast cancer Brother Brain tumor Maternal Aunt Breast cancer Other Mental health disorder Substance use disorder Social History Household Members: Children Housing: House Alcohol intake: current Alcohol intake frequency: a few times a month Patient Tobacco Use Status: Never used Tobacco e-Cigarette/Vaping Use: Never Used Second Hand Smoke Exposure: No service: No Current occupational status: employed 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 [employer] Current occupational exposures/hazards: No Gender identity: Male Cognitive needs: No Hearing needs: No Vision needs: No (reading glasses) Physical Exam Vital Signs: Last Vital Signs Temp 98 F 05/09/25 12:46 Pulse 80 05/09/25 12:46 BP 132/80 05/09/25 12:46 Pulse Ox 96 05/09/25 12:46 Oxygen Delivery Method Room Air 05/09/25 12:46 BMI result Body Mass Index 30.6 Office Procedures Cerumen Removal From which ear canal was the cerumen removed: bilateral Removal: irrigation Notes: patient tolerated procedure well, no complications and ear canal clear [id number] Irrigation/Lavage Results AMB Rapid Strep AMB Rapid Strep Negative Last Edit by Cha Barrientos CMA on 05/09/25 13:05 Results Reviewed Results Reviewed: Laboratory Last Values Strep Scn Rapid Clinic Negative 05/09/25 13:04 Assessment & Plan Assessment & Plan (1) Bilateral impacted cerumen: Code(s): H61.23 - Impacted cerumen, bilateral Plan: Plan Patient was informed and verbally consented to the use of an ambient scribe for clinic note documentation during this visit. Bilateral Impacted Cerumen - Both ear canals were found to be completely occluded by impacted wax. - Bilateral ear irrigation was arranged to be performed in the office today. (2) Strep pharyngitis: Code(s): J02.0 - Streptococcal pharyngitis Plan: - VSS, pt well appearing and PE unremarkable. - The patient presents with symptoms and exposures concerning for strep throat, though the rapid test was negative and he has a cough. - The throat was difficult to swab and evaluate adequately due to poor visualization. - Given the presence of enlarged cervical glands, sore throat, several contacts with strep and the patient's preference for treatment ahead of family gatherings, a presumptive diagnosis of strep was made. - Prescribed Augmentin twice a day for seven days. - The patient was advised that if symptoms do not improve, the etiology is likely viral. - Recommended supportive care including rest, hydration, hot tea with honey, ibuprofen, and Tylenol. - Advised to avoid decongestants like pseudoephedrine due to his history of hypertension. - Given the patient's new cough and history of surgically removed lung tumors, a chest x-ray was ordered as a precaution. - The patient was sent for a chest x-ray today during the visit. - A respiratory panel for influenza, COVID-19, and RSV was collected. - He will be contacted with the results when they become available, likely tomorrow. (3) Otalgia of both ears: Code(s): H92.03 - Otalgia, bilateral Plan: s/p cerumen removal, bilateral EAC's with erythema and tenderness, sent RX to pharmacy for relief. Orders: Orders AMB Rapid Strep Screen Today Z13.9 - Encounter for screening, unspecified AMB Cerumen Removal Today H61.23 - Impacted cerumen, bilateral SARS-CoV2/FLU/RSV Today R09.89 - Other specified symptoms and signs involving the circulatory and respiratory systems XR chest 2V Today R05.9 - Cough, unspecified Medications: New amoxicillin-pot clavulanate 875-125 mg 1 tab PO Q12H 14 tabs 0RF hydrocortisone-acetic acid 1-2 % use in both ears 4 drps otic (ears) TID 20 mL 0RF Coding Level of Care Code Est Pt Level 4 (65382) Diagnoses Bilateral impacted cerumen H61.23 Strep pharyngitis J02.0 Otalgia of both ears H92.03 CPT Codes Office Procedure - CPT: 85483-Eks Irrigation/Lavage ([id number])
--- OUTSIDE RECORDS SUMMARY | 2025-05-09 16:26 | XMS_ITS | Clinical Summary ---
Author Organization [facility] Address [address] [place] [address] Phone Care Team Providers Care Seasonal Customer Service Associate Name Role Phone Unavailable Primary Care Provider [...]
--- OUTSIDE RECORDS SUMMARY | 2025-05-09 16:26 | XMS_ITS | Clinical Summary ---
Author Organization [facility] Address [address] [place] [address] Care Team Providers Care Health Teacher Name Role Phone Unavailable Primary Care Provider [...]
== END 2025-05-09 13:52 | disposition home or self-care (01) ==
PROVIDERS: PCP Internal Medicine; Visit Provider Physician Assistant
DX: H61.23 Impacted cerumen, bilateral (principal); J02.0 Streptococcal pharyngitis; H92.03 Otalgia, bilateral

== ENCOUNTER 2025-05-09 12:40 | Outpatient (REF) | payer OTHER, SELFPAY ==
--- NOTE | ~2025-05-09 | XR_ITS ---
EXAMINATION: XR CHEST 2 VIEWS HISTORY: R05.9 - Cough, unspecified COMPARISON: Comparison is made with the prior examination dated 10/10/2024. FINDINGS: PA and lateral views of the chest are submitted. Again seen is linear scarring in the right lower lobe. The lungs are otherwise clear. There is no pleural effusion, pneumothorax, or pulmonary vascular congestion. The heart is normal in size. The bones are intact. XR/XR chest 2V IMPRESSION: No acute cardiopulmonary abnormality. Electronically signed by: Clarke Tellez MD 05/09/2025 01:54 PM EST
[2025-05-09 17:58] LABS: Resp Syncy Virus RNA Qual PCR NEGATIVE (Negative); SARS COV2 PCR INHOUSE NEGATIVE (Negative)
== END 2025-05-09 12:41 | disposition home or self-care (01) ==
LOC: HO.HMGCX 12:40
PROVIDERS: PCP Internal Medicine; Visit Provider Physician Assistant
DX: H61.23 Impacted cerumen, bilateral (principal); J02.0 Streptococcal pharyngitis; H92.03 Otalgia, bilateral; R05.9 Cough, unspecified; Z03.818 Encounter for observation for suspected exposure to other biological agents ruled out
CPT/HCPCS: 69209; 71046; 87637; 87880

== ENCOUNTER → 2025-05-09 13:42 | Outpatient (BNV) | payer OTHER, SELFPAY | PROVIDERS: PCP Internal Medicine; Visit Provider Radiology Diagnostic Radiology | DX: R05.9 Cough, unspecified (principal) | CPT/HCPCS: 71046 ==

== ENCOUNTER 2025-05-24 14:27 | Outpatient (AMB) | payer OTHER, SELFPAY ==
[2025-05-24 14:50] VITALS: BP 136/72; PULSE 91; O2SAT 98; BMI 31.6
--- NOTE | 2025-05-24 14:50 | HO.NEPHOV_ITS ---
Vital Signs 05/24/25 14:50 Height 6 ft 3 in Weight 253 lb BMI 31.6 BP 136/72 Blood Pressure Location Rt brachial Position Sitting Pulse 91 Pulse Source Pulse Oximeter Pulse Oximetry (%) 98 Oxygen Delivery Method Room Air Intake Visit Reasons: 6 MO FU -Conf Research Test Engine Operator Required: No Accompanied by: Self / Same As Patient Allergies clarithromycin (From BIAXIN) Allergy (Severe, Verified 05/24/25 14:52) ANAPHYLAXIS ENVIRONMENTAL Allergy (Intermediate, Uncoded 05/09/25 12:50) ITCHY EYES RUNNY NOSE HPI Comments Details: Kiran castro is a 55-year-old gentleman who was in his usual state health until back in March when he started developing neurological symptoms. He was seen in [facility] where he underwent a CT scan of the head and neck. The CT scan of the neck demonstrated part of the lung parenchyma which showed a 17 mm right sided nodular density along with an 8 mm nodule adjacent to it. He also had seizures. He did have an MRI is going to be following with Neurology as well. He did not have any shortness breath or cough. 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 He had no significant lymphadenopathy. His lung nodular densities were taken out surgically in [place]. In the interim, he was found to have hyponatremia which is now resolved. He has been feeling tired & feels likel having sleep apnea symptoms. His magnesium levels are ok with supplementation.His blood sugars had been well controlled but has gone up to 200 in the last few days [facility] Medical History (Updated 05/24/25 @ 15:10 by Rafita Lira MD) Strep pharyngitis Bilateral impacted cerumen Overweight (BMI 25.0-29.9) Allergic rhinitis Insomnia Gout Mixed hyperlipidemia Diabetes mellitus Epilepsy SIADH (syndrome of inappropriate ADH production) Hyperlipidemia Type 2 diabetes mellitus Pulmonary nodule 1 cm or greater in diameter Hx of gout Surgical History History of lung surgery (~07/2024) History of repair of left hip joint History of plastic surgery History of right elbow replacement History of tonsillectomy Family History Paternal Grandmother Breast cancer Brother Brain tumor Maternal Aunt Breast cancer Other Mental health disorder Substance use disorder Social History Household Members: Children Housing: House Alcohol intake: current Alcohol intake frequency: a few times a month Patient Tobacco Use Status: Never used Tobacco e-Cigarette/Vaping Use: Never Used Second Hand Smoke Exposure: No service: No Current occupational status: employed Current occupation: [employer] Current occupational exposures/hazards: No Gender identity: Male Cognitive needs: No Hearing needs: No Vision needs: No (reading glasses) Review of Systems Const All systems reviewed & are unremarkable except as noted in HPI and below Physical Exam Vital Signs: Last Vital Signs Pulse 91 05/24/25 14:50 BP 136/72 05/24/25 14:50 Pulse Ox 98 05/24/25 14:50 Oxygen Delivery Method Room Air 05/24/25 14:50 BMI result Body Mass Index 31.6 Const General: comfortable and no acute distress Orientation/consciousness: patient oriented x3 HEENT Head: Yes normocephalic Mouth: Normal oral and palatal mucosa present Eyes EOM: EOMs intact bilaterally Neck Neck: Yes supple Resp Auscultation: clear to auscultation bilaterally Cardio Jugular venous distension: no JVD Rate: regular rate GI Palpation (GI): Soft to palpation Auscultation: normal bowel sounds General: Yes no CVA tenderness Back/Spine/Pelvis Back: no CVA tenderness Skin General skin exam: no rashes or lesions noted Neuro General: patient oriented x3 and moves all extremities Extrem General: Yes no pedal edema Results Reviewed Nephrology Results: Sodium, (135-145) 138 mmol/L 04/17/25 Potassium, (3.3-5.1) 4.3 mmol/L 04/17/25 Chloride, (96-108) 100 mmol/L 04/17/25 Carbon Dioxide, (22-29) 29 mmol/L 04/17/25 BUN, (9-16) 14 mg/dL 04/17/25 Creatinine, (0.5-1.4) 1.08 mg/dL 04/17/25 Assessment & Plan Assessment & Plan (1) Sleep apnea: Code(s): G47.30 - Sleep apnea, unspecified Category: Medical Qualifiers: Sleep apnea type: unspecified type Qualified Code(s): G47.30 - Sleep apnea, unspecified (2) Tiredness: Code(s): R53.83 - Other fatigue Category: Medical (3) Leg cramps: Code(s): R25.2 - Cramp and spasm Category: Medical (4) Hypertension: Code(s): I10 - Essential (primary) hypertension Category: Medical Qualifiers: Hypertension type: primary hypertension Qualified Code(s): I10 - Essential (primary) hypertension Plan Hyponatremia likely due to excess ADH-resolved No H/O HF, liver disease or renal failure Denies polydypisia or excess beer drinking Serum K and rest of the work up reviewed Clinically euvolemic.Sleep study/testosterone levels ordered Continue current medication regimen; Needs good BS control All questions answered Orders: Orders Electrolytes 6 Months I10 - Essential (primary) hypertension, R25.2 - Cramp and spasm, R53.83 - Other fatigue Vitamin D 25-OH Total 6 Months I10 - Essential (primary) hypertension, R25.2 - Cramp and spasm, R53.83 - Other fatigue Testosterone, Total Today R53.83 - Other fatigue Testosterone, Free/Total Today R53.83 - Other fatigue RT home sleep study Today G47.30 - Sleep apnea, unspecified Magnesium 6 Months I10 - Essential (primary) hypertension, R25.2 - Cramp and spasm, R53.83 - Other fatigue Calcium 6 Months I10 - Essential (primary) hypertension, R25.2 - Cramp and spasm, R53.83 - Other fatigue Blood Urea Nitrogen 6 Months I10 - Essential (primary) hypertension, R25.2 - Cramp and spasm, R53.83 - Other fatigue Creatinine 6 Months I10 - Essential (primary) hypertension, R25.2 - Cramp and spasm, R53.83 - Other fatigue Hemoglobin A1c 6 Months I10 - Essential (primary) hypertension, R25.2 - Cramp and spasm, R53.83 - Other fatigue Coding Level of Care Code Est Pt Level 4 (46162) Diagnoses Sleep apnea, unspecified type G47.30 Sleep apnea type: unspecified type Tiredness R53.83 Leg cramps R25.2 Primary hypertension I10 Hypertension type: primary hypertension
--- OUTSIDE RECORDS SUMMARY | 2025-05-24 15:34 | XMS_ITS | Clinical Summary ---
Author Organization [facility] Address [address] [place] [address] Phone Care Team Providers Care Accounting Intern Name Role Phone Unavailable Primary Care Provider [...]
--- OUTSIDE RECORDS SUMMARY | 2025-05-24 15:34 | XMS_ITS | Clinical Summary ---
Author Organization [facility] Address [address] [place] [address] Care Team Providers Care Route Deliverer Name Role Phone Unavailable Primary Care Provider [...]
--- OUTSIDE RECORDS SUMMARY | 2025-05-24 15:34 | XMS_ITS | Encounter Summary ---
Author Organization [facility] Address [address] [id number] Care Team Providers Care Insulation Supervisor Name Role Phone Reno Vargas MD Unavailable [phone] Kalpesh Luu Primary Care Provider [phone] Kalpesh Luu Unavailable [phone] Encounter Details Date Type Department Care Team (Late st Contact Info) Description 03/02/2025 Preprocedure Call [facility] [address] [address] Lucinda Recinos RN [address] [place] [id number] Social History Tobacco Use Types Packs/Day Years Used Date Smoking Tobacco: Never Passive Smoke Exposure: Never Smokeless Tobacco: Never Alcohol Use Standard Drinks/Week Comments Yes 0 (1 standard drink = 0.6 oz pur e alcohol) few times a month PRAPARE - Transportation Answer Date Re corded In the past 12 months, has l ack of transportation kept you from medical appointments or from getting medications? No 07/23 In the past 12 months, has l ack of transportation kept you from meetings, work, or from getting things needed for daily living? No 08/10/2024 Housing Stability Vital Sign Answer John e Recorded In the last 12 months, was t here a time when you were not able to pay the mortgage or rent on time? No 08/10/2024 Number of Times Moved in the Last Year Not on fi le 08/10/2024 Homeless in the Last Year Not on file 2024 Housing Stability Answer Date Recorded Unstable Housing in the Last Year Not on file 08/10/2024 In the last 12 months, was t here a time when you were not able to pay the mortgage or rent on time? No 08/10/2024 [address] Lived in the Last Year Not on f ile 08/10/2024 AUDIT C Answer Date Recorded How often have you had a dri nk containing alcohol, in the past year? 2 08/10/2024 How many standard drinks con taining alcohol have you had on a typical day when you are drinking, in the past year? 00 0 08/10/2024 How often have you had six o r more drinks on one occasion, in the past year? 0 08/10/2024 Sex and Gender Information Value Date Recorded Sex Assigned at Male 06/21/2024 3:59 PM EST Legal Sex Male 2:42 PM EST Gender Identity Male 06/21/2024 3:59 PM EST Sexual Orientation Not on file Occupation Industry Job Start Date Job End Date [employer] at [place], [place] Not on file Not on file Not on file documented as of this encounter Functional Status * Are you deaf or do you have serious difficulty hearing? Answer Date of Assessment Author No 08/09/2024 9:04 AM Bettye Lora * Are you blind or do you have serious difficulty seeing, even when wearing glasses? Answer Date of Assessment Author No 08/09/2024 9:04 AM Bettye Lora * Do you have serious difficulty walking or climbing stairs? Answer Date of Assessment Author No 08/09/2024 9:04 AM Bettye Lora * Do you have difficulty dressing or bathing? Answer Date of Assessment Author No 08/09/2024 9:04 AM Bettye Lora * Because of a physical, mental, or emotional condition, do you have difficulty doing errands alone such as visiting the doctor? Answer Date of Assessment Author No 08/09/2024 9:04 AM Bettye Lora documented as of this encounter Mental Status * Because of a physical, mental, or emotional condition, do you have serious difficulty concentrating, remembering, or making decisions? Answer Entry Date Author No 08/09/2024 9:04 AM Bettye Lora documented in this encounter Plan of Treatment Not on file documented as of this encounter Visit Diagnoses Not on filedocumented in this encounter Care Teams Insulation Supervisor Relationship Specialty Start Date End Date Reno Vargas MD PCP - Insurance Assigned PCP 06/21/24 03/07/25 Kalpesh Luu [address] [address] PCP - General 02/15/25 Kalpesh Luu [address] [address] PCP - Insurance Assigned PCP 03/08/25 documented as of this encounter
--- OUTSIDE RECORDS SUMMARY | 2025-05-24 15:34 | XMS_ITS | Clinical Summary ---
Author Organization Nini Laws [facility] Address [address] [place] [id number] Care Team Providers Care Room Service Server Name Role Phone Kalpesh Luu Primary Care Provider [phone] Kalpesh Luu Unavailable [phone] Allergies Active Allergy Reactions Criticality Noted Date Comments Clarithromycin Other (See Comments) 07/06/2024 Medications allopurinoL (ZYLOPRIM) 100 MG tablet Take 2 tablets (200 mg total) by mouth in the morning. Active amLODIPine (NORVASC) 10 MG tablet Take 1 tablet (10 mg total) by mouth in the morning. Active TRULICITY 4.5 mg/0.5 mL injection Inject 0.5 mL (4.5 mg total) under the skin once a week. On Thursday 4 Active fluticasone propionate (FLONASE) 50 mcg/actuation nasal spray 1 spray into each nostril as needed. 4 Active lacosamide (VIMPAT) 200 mg tablet Take 250 mg by mouth in the morning and 250 mg before bedtime. 5 Active metFORMIN (GLUCOPHAGE) 1000 MG tablet Take 1 tablet (1,000 mg total) by mouth 2 times a day with breakfast & dinner. 5 Active traZODone (DESYREL) 50 MG tablet Take 1 tablet (50 mg total) by mouth at bedtime as needed for insomnia. 4 Active losartan (COZAAR) 50 MG tablet Take 1 tablet (50 mg total) by mouth in the morning. Active fenofibrate micronized (LOFIBRA) 200 MG capsule Take 1 capsule (200 mg total) by mouth in the morning. Active Active Problems Problem Noted Date Diagnosed Date PONV (postoperative nausea and vomiting) 025 Lung nodule 08/09/2024 Pulmonary nodule 08/02/2024 Right lower lobe pulmonary nodule 07/05/2024 Seizures 07/05/2024 Encounters Date Type Department Care Team Description 05/02/2025 Results Follow-Up [facility] Gastroenterology [facility] Gastroenterology [address] [place] [id number] Armando Cordoba PA US Abdomen Limited With Elastography 05/01/2025 8:37 AM EST - 05/01/2025 11:59 PM EST Hospital Encounter [facility] [address] [place] [phone] Armando Cordoba PA Fatty liver; Elevated ALT measurement Discharge Disposition: Home or Self Care 05/01/2025 7:30 AM EST Office Visit Department of Urology [facility] [address] [place] [id number] Thang Chau MD Benign prostatic hyperplasia with incomplete bladder emptying (Primary Dx); Prostate cancer screening 04/11/2025 11:30 AM EST Telemedicine [facility] Gastroenterology [facility] Gastroenterology [address] [place] [id number] Armando Cordoba PA Postprandial RUQ pain (Primary Dx); Fatty liver; Elevated ALT measurement; Colon adenomas 03/27/2025 Results Follow-Up [facility] Gastroenterology [facility] Gastroenterology [address] [place] [phone] Za Gonzalez MD Surgical Pathology Tissue Exam 03/16/2025 12:51 PM EDT Anesthesia Event [facility] [address] [place] [phone] Kalpesh Menendez MD 03/16/2025 12:24 PM EDT - 03/16/2025 11:59 PM EDT Hospital Encounter [facility] [address] [place] [phone] Javan Dennis MD Bakhit, Mena M, MD Frydryk, Marissa, Santos Small pain (Primary Dx); Dysphagia, unspecified type; Heartburn; Family history of colonic polyps Discharge Disposition: Home or Self Care 03/02/2025 Preprocedure Call [facility] [address] [place] [phone] Lucinda Recinos, RN from Last 3 Months Family History Medical History Relation Comments brain tumor Brother Breast cancer Maternal Aunt Breast cancer Paternal Grandmother Kidney cancer Neg Hx Prostate cancer Neg Hx Relation Status Comments Brother Maternal Aunt Alive Paternal Grandmother Social History Tobacco Use Types Packs/Day Years Used Date Smoking Tobacco: Never Passive Smoke Exposure: Never Smokeless Tobacco: Never Tobacco Cessation:Counseling Given: Not Answered Alcohol Use Standard Drinks/Week Comments Yes 0 [...] Industry Job Start Date Job End Date [employer]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[place], [place] Not on file Not on file Not on file Last Filed Vital Signs Vital Sign Reading Time Taken Comments Blood Pressure 129/85 03/16/2025 2:15 PM EDT Pulse 81 03/16/2025 2:15 PM EDT Temperature 36.7 C (98 F) 03/16/2025 1:00 PM EDT Respiratory Rate 16 03/16/2025 2:15 PM EDT Oxygen Saturation 100% 03/16/2025 2:15 PM EDT Inhaled Oxygen Concentration - - Weight 107 kg (235 lb) 03/16/2025 12:53 PM EDT Height 190.5 cm (6' 3 ) 03/16/2025 12:53 PM EDT Body Mass Index 29.37 03/16/2025 12:53 PM EDT Plan of Treatment Health Maintenance Due Date Last Done Comments Lipid Panel 1969 SDM 1969 Depression Screening 1981 Hepatitis C Screening 1987 DTaP,Tdap,and Td Vaccines (1 - Tdap) 02/03/1988 CT Colonography 2014 FIT 2014 FOBT 2014 Multitarget Stool DNA (Cologuard) 2014 Sigmoidoscopy 2014 Pneumococcal Vaccine: 50+ Years (1 of 1 - PCV) 2019 COVID-19 Vaccine ( season) 2025 06/06/2021, 08/22/2020, 08/02/2020 Blood Pressure 03/16/2026 03/16/2025 PSA 02/09/2027 02/09/2025 Prostate Cancer Screening 02/09/2027 Hemoglobin A1c 08/06/2027 08/05/2024 Colonoscopy 03/16/2035 03/16/2025 Colorectal Cancer Screening 03/16/2035 Zoster Vaccine Completed 09/27/2024, 07/17/2024 Influenza Vaccine Completed 03/09/2025, , 02/28/2020, Additional history exists Meningococcal B Vaccines Aged Out No longer eligible based on patient's age to complete this topic Meningococcal Vaccines Aged Out No lo nger eligible based on patient's age to complete this topic Procedures Procedure Name Priority Date/Time Associated Diagnosis Comments US ABDOMEN LIMITED WITH LIVER ELASTOGRAPHY Routine 05/01/2025 9:10 AM EST Fatty liver Elevated ALT measurement COLONOSCOPY Routine 03/16/2025 1:51 PM EDT Family history of colonic polyps EGD Routine 03/16/2025 1:51 PM EDT RUQ pain Dysphagia, unspecified type Heartburn SURGICAL PATHOLOGY TISSUE EXAM Routine 03/16/2025 1:29 PM EDT RUQ pain Dysphagia, unspecified type Heartburn Family history of colonic polyps POCI GLUCOSE Routine 03/16/2025 1:03 PM EDT PSA SCREEN (>50, ONCE/YEAR) Routine 02/09/2025 11:23 AM EDT Encounter for screening for malignant neoplasm of prostate HEMOGLOBIN A1C Routine 08/05/2024 1:43 PM EDT Pulmonary nodule from Last 3 Months or Most Recently Relevant to Health Maintenance Results * US ABDOMEN LIMITED WITH LIVER ELASTOGRAPHY (05/01/2025 9:10 AM EST) Anatomical Region Laterality Modality Abdomen Ultrasound 05/01/2025 11:0 7 AM EST Impressions 05/01/2025 11:03 AM EST 1. US Elastography Liver Stiffness Value: 1.42 m/s (6.06 kPa). 2. Marked fatty liver. Interpretation of US Elastography Liver Stiffness Values: <=1.3 m/s (5 kPa): High probability of normal. 1.3 to <1.7 m/s (5 to <9 kPa): In the absence of other known clinical signs, rules out advanced chronic liver disease (ACLD). If there are known clinical signs, may need further test for confirmation. 1.7 to 2.1 m/s (9 to 13 kPa): Suggestive of ACLD (>=F2 fibrosis). >2.1 to 2.4 m/s (13 to 17 kPa): Consistent with ACLD (F4 fibrosis/cirrhosis). >2.4 m/s (17 kPa): Consistent with ACLD and suggestive of clinically significant portal hypertension (CSPH). Note there is high variability in elastography measurements when IQR/Median ratio is >15% (for m/s) and >30% (for kPa). I have reviewed all images of this examination and edited the above dictation. Narrative 05/01/2025 11:03 AM EST EXAM DESCRIPTION: US Abdomen limited with Liver Elastography. TECHNIQUE: Ultrasound images of the right upper quadrant of the abdomen were acquired, with Elastography examination of the hepatic parenchyma. Real-time grayscale imaging was performed. COMPARISON: No Comparison. INDICATION: screen for fibrosis FINDINGS: LIVER: Coarse echotexture with marked echogenic liver parenchyma. No focal mass. BILIARY TREE: Proximal common duct measures 0.4 cm. No biliary ductal dilatation. GALLBLADDER: No cholelithiasis, wall thickening, or pericholecystic fluid. Negative sonographic Johnson's sign. PANCREAS: The visualized pancreas is normal. RIGHT KIDNEY: 11.5 cm in length. Normal appearance. SPLEEN: 11.1 cm in length. Normal appearance. AORTA: The aorta is obscured by bowel gas. IVC: The proximal IVC is seen. FLUID: None visualized. PLEURAL EFFUSION: None visualized. ELASTOGRAPHY: Liver Elastography was performed on a [employer] ultrasound machine. Median shear wave value (m/s): 1.42 m/s with IQR/Median ratio 10.5 %. Median shear wave value (kPa): 6.06 kPa with IQR/Median ratio 20.8 %. Procedure Note Waqas Alfonso MD - 05/01/2025 EXAM DESCRIPTION: US Abdomen limited with Liver Elastography. TECHNIQUE: Ultrasound images of the right upper quadrant of the abdomen wereacquired, with Elastography examination of the hepatic parenchyma.Real-time grayscale imaging was performed. COMPARISON: No Comparison. INDICATION: screen for fibrosis FINDINGS: LIVER: Coarse echotexture with marked echogenic liver parenchyma. No focalmass. BILIARY TREE: Proximal common duct measures 0.4 cm. No biliary ductaldilatation. GALLBLADDER: No cholelithiasis, wall thickening, or pericholecystic fluid.Negative sonographic Johnson's sign. PANCREAS: The visualized pancreas is normal. RIGHT KIDNEY: 11.5 cm in length. Normal appearance. SPLEEN: 11.1 cm in length. Normal appearance. AORTA: The aorta is obscured by bowel gas. IVC: The proximal IVC is seen. FLUID: None visualized. PLEURAL EFFUSION: None visualized. ELASTOGRAPHY: Liver Elastography was performed on a [employer]. Median shear wave value (m/s): 1.42 m/s with IQR/Median ratio 10.5 %. Median shear wave value (kPa): 6.06 kPa with IQR/Median ratio 20.8 %. IMPRESSION: 1. US Elastography Liver Stiffness Value: 1.42 m/s (6.06 kPa). 2. Marked fatty liver. Interpretation of US Elastography Liver Stiffness Values: <=1.3 m/s (5 kPa): High probability of normal. 1.3 to <1.7 m/s (5 to <9 kPa): In the absence of other known clinicalsigns, rules out advanced chronic liver disease (ACLD). If there are knownclinical signs, may need further test for confirmation. 1.7 to 2.1 m/s (9 to 13 kPa): Suggestive of ACLD (>=F2 fibrosis). >2.1 to 2.4 m/s (13 to 17 kPa): Consistent with ACLD ([id number]/cirrhosis). >2.4 m/s (17 kPa): Consistent with ACLD and suggestive of clinicallysignificant portal hypertension (CSPH). Note there is high variability in elastography measurements whenIQR/Median ratio is >15% (for m/s) and >30% (for kPa). I have reviewed all images of this examination and edited the abovedictation. us Mo Keovongsa PA [facility] ORDERABLES Final Result * Colonoscopy (03/16/2025 1:51 PM EDT) Anatomical Region Laterality Modality Endoscopy Narrative 03/16/2025 1:51 PM EDT Table formatting from the original result was not included. Impression 3 subcentimeter polyps in the transverse colon and descending colon were removed with cold snare Internal hemorrhoids The examined colon was otherwise normal. Recommendation Await pathology results Repeat colonoscopy based on pathology, likely 3-5 years Indication Family history of colonic polyps Staff Staff Role Za Gonzalez MD Proceduralist Medications fentaNYL (PF) 50 mcg/mL injection 100 mcg midazolam (VERSED) injection 5 mg (Totals for administrations occurring from 1315 to 1350 on 03/16/25) Preprocedure A history and physical has been performed, and patient medication allergies have been reviewed. The patient's tolerance of previous anesthesia has been reviewed. The risks and benefits of the procedure and the sedation options and risks were discussed with the patient. All questions were answered and informed consent obtained. ASA Score 2 Details of the Procedure The patient underwent moderate sedation, which was administered by the procedural nurse. The patient's blood pressure, ECG, heart rate, level of consciousness, oxygen, respirations and ETCO2 were monitored throughout the procedure. The scope was introduced through the anus and advanced to the cecum. Retroflexion was performed in the rectum. Bowel prep was adequate. The patient experienced no blood loss. The procedure was not difficult. The patient tolerated the procedure well. There were no apparent adverse events. The attending physician was present for the entire procedure and supervised the sedation. Events Procedure Events Event Event Time ENDO SCOPE IN TIME 03/16/2025 1:28 PM ENDO SCOPE OUT TIME 03/16/2025 1:32 PM ENDO SCOPE IN TIME 03/16/2025 1:35 PM ENDO CECUM REACHED 03/16/2025 1:40 PM ENDO SCOPE OUT TIME 03/16/2025 1:50 PM Findings Three sessile and semi-pedunculated polyps measuring from 3 mm up to 8 mm in the transverse colon and descending colon; performed cold snare with complete en bloc removal and retrieved specimen Internal hemorrhoids The examined colon was otherwise normal. Specimens ID Type Source Tests Collected by Time A : random gastric bx r/o h. pylori Tissue Stomach SURGICAL PATHOLOGY TISSUE EXAM Za Gonzalez MD 03/16/2025 1:29 PM B : polyp x2 Tissue Large Intestine, Transverse Colon SURGICAL PATHOLOGY TISSUE EXAM Za Gonzalez MD 03/16/2025 1:40 PM C : polyp x1 Tissue Large Intestine, Left/Descending Colon SURGICAL PATHOLOGY TISSUE EXAM Za Gonzalez MD 03/16/2025 1:46 PM Scopes [id number] Armando Coatsjose [facility] PROCEDURE ORDERABLES Final Re sult * EGD (03/16/2025 1:51 PM EDT) Anatomical Region Laterality Modality Endoscopy Narrative 03/16/2025 1:33 PM EDT Table formatting from the original result was not included. Impression The examined esophagus was normal. Small hiatal hernia The examined stomach was otherwise normal Performed forceps biopsies in the stomach to rule out H. pylori The examined duodenum was normal Recommendation Await pathology results Proceed to colonoscopy Indication RUQ pain Dysphagia, unspecified type Heartburn Staff Staff Role Za Gonzalez MD Proceduralist Medications fentaNYL (PF) 50 mcg/mL injection 75 mcg midazolam (VERSED) injection 4 mg (Totals for administrations occurring from 1315 to 1332 on 03/16/25) Preprocedure A history and physical has been performed, and patient medication allergies have been reviewed. The patient's tolerance of previous anesthesia has been reviewed. The risks and benefits of the procedure and the sedation options and risks were discussed with the patient. All questions were answered and informed consent obtained. ASA Score 2 Details of the Procedure The patient underwent moderate sedation, which was administered by the procedural nurse. The patient's blood pressure, heart rate, level of consciousness, oxygen saturation, respirations, ECG and ETCO2 were monitored throughout the procedure. The scope was introduced through the mouth and advanced to the third part of the duodenum. Retroflexion was performed in the fundus. The patient experienced no blood loss. The procedure was not difficult. The patient tolerated the procedure well. There were no apparent adverse events. The attending physician was present for the entire procedure and supervised the sedation. Events Procedure Events Event Event Time ENDO SCOPE IN TIME 03/16/2025 1:28 PM ENDO SCOPE OUT TIME 03/16/2025 1:32 PM Findings The examined esophagus was normal. Small hiatal hernia The examined stomach was otherwise normal Performed multiple forceps biopsies in the stomach to rule out H. pylori The examined duodenum was normal Specimens ID Type Source Tests Collected by Time A : random gastric bx r/o h. pylori Tissue Stomach SURGICAL PATHOLOGY TISSUE EXAM Za Gonzalez MD 03/16/2025 1:29 PM Scopes [id number] Armando INGRAM [facility] PROCEDURE ORDERABLES Final Re sult * Surgical Pathology Tissue Exam (03/16/2025 1:29 PM EDT) Case Report Surgical Pathology Report Case: [id number] Authorizing Provider: Za Gonzalez MD Collected: 03/16/2025 01:29 PM Ordering Location: [facility] Received: 03/16/2025 02:48 PM Pathologist: Carlitos Clarke MD Specimens: A) - Stomach, random gastric bx r/o h. pylori B) - Large Intestine, Transverse Colon, polyp x2 C) - Large Intestine, Left/Descending Colon, polyp x1 4:02 PM EDT [facility] Final Diagnosis A. Stomach, random gastric bx r/o h. pylori: ANTRAL AND CORPUS TYPE GASTRIC MUCOSA WITHIN NORMAL LIMITS. IMMUNOHISTOCHEMICAL STAIN FOR HELICOBACTER IS NEGATIVE. B. Large Intestine, Transverse Colon, polyp x2: FRAGMENTS OF TUBULAR ADENOMAS (X 2) (CLINICALLY POLYPS X 2) C. Large Intestine, Left/Descending Colon, polyp x1: TUBULAR ADENOMA. 4:02 PM EDT [facility] at 1602 EDT Clinical Information Cold force 4:02 PM EDT [facility] Gross Description A. Stomach, random gastric bx r/o h. pylori Received in formalin labeled with the patient's name, medical record number and stomach biopsies are 4 norman mucosal biopsies measuring from 0.2-0.3 cm. The specimen is wrapped and entirely submitted in A1. B. Large Intestine, Transverse Colon, polyp x2 Received in formalin labeled with the patient's name, medical record number and transverse colon polyp x 2 are multiple norman mucosal biopsies measuring from 0.3-0.5 cm. The specimen is wrapped and entirely submitted in B1. C. Large Intestine, Left/Descending Colon, polyp x1 Received in formalin labeled with the patient's name, medical record number and left colon polyp x 1 is one norman mucosal biopsy measuring 0.5 x 0.4 x 0.3 cm. The specimen is wrapped and entirely submitted in C1/sp. 4:02 PM EDT [facility] Methods and Disclaimers Internal positive elements were examined and/or appropriate positive and negative controls were stained alongside sections from this case. The control tissue was examined and judged to be technically acceptable. This assay may not have been validated on decalcified tissues. If the specimen on which IHC was performed has been decalcified, results should be interpreted with caution given the possibility of false negative results on decalcified specimens. The Immunohistochemistry test(s) listed were developed and their performance characteristics determined by the Pathology Department at [facility] or at [facility]. They have not been cleared by the U.S. Food and Drug Administration. The FDA has determined that such clearance is not necessary. These tests are used for clinical purposes and should not be regarded as research or investigational. This laboratory is certified under the Clinical Laboratory Amendments of 1988 (CLIA-88) as qualified to perform high complexity testing. 4:02 PM EDT [facility] Tissue STOMACH STRUCTURE / Unknown 03/16/2025 1:29 PM EDT 03/16/2025 2:48 PM EDT Comment:Cold forcep Tissue specimen (specimen) TRANSVERSE COLON STRUCTURE / Unknown 03/16/2025 1:40 PM EDT 03/16/2025 2:48 PM EDT Comment:Cold snare Tissue specimen (specimen) DESCENDING COLON STRUCTURE / Unknown 03/16/2025 1:46 PM EDT 03/16/2025 2:48 PM EDT Comment:Cold snare us Za Gonzalez MD PATHOLOGY/CYTOLOGY ORDERABLES F inal Result [address] [address], * (ABNORMAL) POCT Glucose (03/16/2025 1:03 PM EDT) Glucose, POC 138(H) 70 - 118 mg/dL 03/16/2025 1:03 PM EDT [facility] Blood 03/16/2025 1:03 PM EDT 03/16/2025 1:03 PM EDT us Javan Dennis MD POCT ORDERABLES - DEVICE Fin al Result Performing Organization Address [facility] [place] [address] * PSA Screen (once/year) (02/09/2025 11:23 AM EDT) Prostate Specific Ag 0.26 0.00 - 3.90 ng/mL JORGE [id number] 02/09/2025 12:40 PM EDT [facility] Comment:Method: Jorge Blood Venipuncture / Unknown 02/09/2025 11:23 AM EDT 02/09/2025 11:51 AM EDT Armando INGRAM LAB BLOOD ORDERABLES Final Resul t Performing Organization Address [facility] [place] [address] * (ABNORMAL) Hemoglobin A1C (08/05/2024 1:43 PM EDT) Hemoglobin A1C 6.2(H) 4.6 - 5.6 % 08/05/2024 1:59 PM EDT [facility] Comment: 4.6 to 5.6% Normal 5.7 to 6.4% Pre-diabetes, increased risk for diabetes >= 6.5% Diabetes mellitus Blood PERIPHERAL BLOOD SPECIMEN / Unknown Venipuncture / Unknown 08/05/2024 1:43 PM EDT 08/05/2024 1:48 PM EDT Santos Ruby MD LAB BLOOD ORDERABLES Final R esult Performing Organization Address [facility]/State/ZIP Co de Phone Number [address] [address] from Last 3 Months or Most Recently Relevant to Health Maintenance Insurance [facility] [address] [place] Advance Directives Documents on File Type Date Recorded Patient Press Technician Expl anation Health Care Proxy 08/05/2024 3:58 PM * Full Code (Latest Code Status on File) Date Activated Date Inactivated Comments 08/09/2024 2:38 PM Question Answer Comments Discussed with/per: Patient * Full Code Date Activated Date Inactivated Comments 08/09/2024 9:19 AM 08/09/2024 2:38 PM Question Answer Comments Discussed with/per: Patient Care Teams Room Service Server Relationship Specialty Start Date End Date Kalpesh Luu [address] [address] PCP - General 02/15/25 Kalpesh Luu [address] [address] PCP - Insurance Assigned PCP 03/08/25
== END 2025-05-24 15:48 | disposition home or self-care (01) ==
LOC: HO.HKA 14:27
PROVIDERS: PCP Family Medicine; Visit Provider Internal Medicine Nephrology
DX: G47.30 Sleep apnea, unspecified (principal); R53.83 Other fatigue; R25.2 Cramp and spasm; I10 Essential (primary) hypertension
CPT/HCPCS: 99214